=== PATIENT | male | born 1970 | race Caucasian/White ===

== ENCOUNTER → 2019-10-20 13:57 | Outpatient (BNVA) | payer MEDICARE, SELFPAY | PROVIDERS: PCP Nurse Practitioner Family; Visit Provider Anesthesiology | DX: G89.29 Other chronic pain (principal); M54.9 Dorsalgia, unspecified; M54.10 Radiculopathy, site unspecified; M25.571 Pain in right ankle and joints of right foot; M25.552 Pain in left hip; M25.562 Pain in left knee | CPT/HCPCS: 99214 ==

== ENCOUNTER → 2019-12-17 13:40 | Outpatient (BNVA) | payer MEDICARE, SELFPAY | PROVIDERS: PCP Nurse Practitioner Family; Visit Provider Anesthesiology | DX: G89.29 Other chronic pain (principal); M54.10 Radiculopathy, site unspecified; M79.651 Pain in right thigh; M79.652 Pain in left thigh; M25.571 Pain in right ankle and joints of right foot; M25.562 Pain in left knee; M25.552 Pain in left hip; Z79.891 Long term (current) use of opiate analgesic | CPT/HCPCS: 99214 ==

== ENCOUNTER → 2020-04-12 13:44 | Outpatient (BNVA) | payer MEDICARE, SELFPAY | PROVIDERS: PCP Nurse Practitioner Family; Visit Provider Anesthesiology | DX: G89.29 Other chronic pain (principal); M25.571 Pain in right ankle and joints of right foot; M25.552 Pain in left hip; M25.562 Pain in left knee; M54.10 Radiculopathy, site unspecified; Z79.891 Long term (current) use of opiate analgesic | CPT/HCPCS: 99214 ==

== ENCOUNTER → 2020-06-21 13:07 | Outpatient (BNVA) | payer MEDICARE, SELFPAY | PROVIDERS: PCP Nurse Practitioner Family; Visit Provider Nurse Practitioner | DX: G89.29 Other chronic pain (principal); M54.42 Lumbago with sciatica, left side; M25.571 Pain in right ankle and joints of right foot; M25.562 Pain in left knee; M25.552 Pain in left hip; M54.10 Radiculopathy, site unspecified; M79.641 Pain in right hand; Z79.891 Long term (current) use of opiate analgesic | CPT/HCPCS: 99213; 99214 ==

== ENCOUNTER 2020-07-11 08:05 | Outpatient (CLI) | payer MEDICARE, SELFPAY ==
--- NOTE | 2020-07-11 08:13 | CT_ITS ---
WS: [id number] CT HEAD TECHNIQUE: Noncontrast CT of the head obtained from the skullbase to the vertex. CLINICAL INFORMATION: FREQUENT HEADACHES COMPARISON: None. DLP: 1058.[address] scans at [facility] use at least one of these dose optimization techniques: automat ed exposure control; mA and/or kV adjustment per patient size (includes targeted exams where dose is matched to clinical indication); or iterative reconstruction. FINDINGS: No evidence of intracranial hemorrhage or mass effect. Ventricular system and basal cisterns are martin nt. Normal blake-white differentiation. No significant parenchymal volume loss. No encephalomalacia. N o extra-axial fluid collections. No evidence of mass or mass effect. Paranasal sinuses and mastoid air cells are well aerated. .Normal visualized soft tissues. CT/CT head wo con* [id number] IMPRESSION: 1. No evidence of intracranial hemorrhage or mass effect. 2. Normal blake-white differentiation. No encephalomalacia. 3. No acute intracranial findings.
== END 2020-07-11 08:06 | disposition home or self-care (01) ==
LOC: RADWPI 08:08
PROVIDERS: PCP Nurse Practitioner Family; Visit Provider Nurse Practitioner Family
DX: R51 Headache (principal)
CPT/HCPCS: 70450

== ENCOUNTER → 2020-08-25 13:45 | Outpatient (BNVA) | payer MEDICARE, SELFPAY | PROVIDERS: PCP Nurse Practitioner Family; Visit Provider Anesthesiology | DX: G89.29 Other chronic pain (principal); M54.42 Lumbago with sciatica, left side; M25.571 Pain in right ankle and joints of right foot; M25.562 Pain in left knee; M25.552 Pain in left hip; Z79.891 Long term (current) use of opiate analgesic | CPT/HCPCS: 99214 ==

== ENCOUNTER → 2020-10-31 10:04 | Outpatient (BNVA) | payer MEDICARE, SELFPAY | PROVIDERS: PCP Nurse Practitioner Family; Visit Provider Anesthesiology | DX: G89.29 Other chronic pain (principal); M25.571 Pain in right ankle and joints of right foot; M25.562 Pain in left knee; M25.552 Pain in left hip; M54.10 Radiculopathy, site unspecified; Z79.891 Long term (current) use of opiate analgesic | CPT/HCPCS: 99214 ==

== ENCOUNTER → 2020-12-20 13:10 | Outpatient (BNVA) | payer MEDICARE, SELFPAY | PROVIDERS: PCP Nurse Practitioner Family; Visit Provider Anesthesiology | DX: G89.29 Other chronic pain (principal); M25.571 Pain in right ankle and joints of right foot; M25.562 Pain in left knee; M25.552 Pain in left hip; M54.10 Radiculopathy, site unspecified; Z79.891 Long term (current) use of opiate analgesic | CPT/HCPCS: 99214 ==

== ENCOUNTER → 2021-01-10 13:13 | Outpatient (BNVA) | payer MEDICARE, SELFPAY | PROVIDERS: PCP Nurse Practitioner Family; Referring Provider Nurse Practitioner Family; Visit Provider Specialist | DX: M25.559 Pain in unspecified hip (principal); M16.12 Unilateral primary osteoarthritis, left hip | CPT/HCPCS: 73502 ==

== ENCOUNTER → 2021-02-16 13:20 | Outpatient (BNVA) | payer MEDICARE, SELFPAY | PROVIDERS: PCP Nurse Practitioner Family; Visit Provider Podiatrist Foot & Ankle Surgery | DX: M19.071 Primary osteoarthritis, right ankle and foot (principal); M25.571 Pain in right ankle and joints of right foot | CPT/HCPCS: 73610 ==

== ENCOUNTER → 2021-02-23 12:31 | Outpatient (BNVA) | payer MEDICARE, SELFPAY | PROVIDERS: PCP Nurse Practitioner Family; Visit Provider Anesthesiology | DX: G89.29 Other chronic pain (principal); M54.42 Lumbago with sciatica, left side; M25.552 Pain in left hip; M25.562 Pain in left knee; M16.9 Osteoarthritis of hip, unspecified; M19.271 Secondary osteoarthritis, right ankle and foot; Z79.891 Long term (current) use of opiate analgesic | CPT/HCPCS: 99214 ==

== ENCOUNTER 2021-03-24 21:33 | Emergency (ER) | payer MEDICARE, SELFPAY ==
[2021-03-24 21:40] VITALS: BP 158/85; PULSE 101; RESP 22; TEMP 35.8; O2SAT 94; BMI 40.2
--- NOTE | 2021-03-24 21:53 | W.ED.SKABFB ---
HPI - Skin/Abscess/Foreign Bdy General: Chief complaint: Skin/Abscess/Foreign Body Stated complaint: SPIDER BITE ON RLE 2 DAYS AGO, PT HAS RARE CANCER Time Seen by Provider: 03/24/21 21:46 History of Present Illness: HPI narrative: 50-year-old male patient comes in today with a lesion to his right lower leg. Patient feels that it may be a spider bite. Patient reports for the last 3 days he has felt kind of tired and having increase in his pain level. Patient has a history of T-cell lymphoma, obesity, chronic pain syndrome. Patient reports that he felt something crawling on his skin he brushed it off 3 days ago. Patient said since then he had the symptoms of malaise and body aches. Patient denies any other symptoms except for some flank pain. Review of Systems General: Reports: 10 or more systems reviewed and unremarkable except in HPI and below Const: Reports: fatigue PFSH ED PFSH: Medical History Ankle pain, right Back pain with left-sided radiculopathy Chronic left hip pain Chronic pain of left knee Encounter for long-term opiate analgesic use Opioid contract exists Surgical History H/O arthroscopic knee surgery History of foot surgery Family History Grandfather Cancer Social History Smoking and tobacco status: former smoker Second hand smoke exposure: No Alcohol intake: current Alcohol intake frequency: few times a month History of recent travel: No Physical Exam Const: COMMON NORMALS: no acute distress and patient oriented x3 GENERAL APPEARANCE: cooperative HENMT: COMMON NORMALS: normocephalic and Normal external nose present HEAD & SCALP: normal to inspection and normocephalic NOSE: Normal external nose present MOUTH: Normal oral and palatal mucosa present Eye: GENERAL EYE: appearance normal, both eyes and all related structures Neck/C-Spine: COMMON NORMALS: full ROM Lymph: LYMPHATIC: no lymphadenopathy noted Chest: COMMONS NORMALS: normal inspection of the chest Resp: COMMON NORMALS: normal respiratory effort EFFORT & INSPECTION: Yes able to speak in complete sentences Cardio: COMMON NORMALS: regular rate and regular rhythm RATE: regular rate RHYTHM: regular rhythm GI: COMMON NORMALS: non-tender : COMMON NORMALS: Yes no CVA tenderness BLADDER/KIDNEY EXAM: Yes no CVA tenderness Back/Pelvis: COMMON NORMALS: no CVA tenderness and thoracic and lumbar spine normal to inspection Extremity: NARRATIVE EXTREMITY EXAM: Small pustule noted to the left lower leg with less than 1 cm area of redness. Neuro: COMMON NORMALS: patient oriented x3 and moves all extremities Psych: COMMON NORMALS: mental status grossly normal and cooperative Skin: COMMON NORMALS: no rashes or lesions noted GENERAL SKIN EXAM: no rashes or lesions noted Course ED course: 2229, urine showed some red blood cells, when questioned specifically what kidney pain the patient was having he just states that it was in his bilateral flanks not 1 more than other. No sign of white blood cells. Due to this type of pain in his response I do not feel it is necessary due to it being bilateral flank discomfort. Vital Signs: Vital signs: Vital Signs Temperature 96.4 F L 03/24/21 21:40 Pulse Rate 101 H 03/24/21 21:40 Respiratory Rate 22 H 03/24/21 21:40 Blood Pressure 158/85 03/24/21 21:40 Pulse Oximetry 94 03/24/21 21:40 MDM - Skin/Abscess/Foreign Bdy MDM Narrative: Medical decision making narrative: Patient comes in today for complaints of generalized body pain. Patient believes he was bit by a spider 3 days ago and has had a reaction to the spider bite. Patient points to a small lesion to his right lower leg with minimal area of redness surrounding it. 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 Differential diagnosis includes infected insect bite, reaction to insect bite, malingering. Laboratory values noted some mild decrease in the white blood cell count at 3.5, sodium was 131, remainder of labs were unremarkable. Urinalysis was clear except for some trace of red blood cells. I believe the patient probably was bit by a spider but it has been the past 3 days and I do not think patient is having a systemic reaction from the venom at this time, I think we should go ahead and cover for infection and continue monitoring. Another thought may be a viral syndrome that is coinciding with the patient's insect bite. Patient agreed to plan. Lab Data: Labs: Lab Results 03/24/21 03/24/21 03/24/21 Range/Units 22:09 23:24 23:24 WBC 3.5 L (4.0-10.0) 10^3/ uL RBC 4.57 (4.1-5.3) 10^6/u L Hgb 13.5 (11.7-16.6) g/dL Hct 39.1 L (42.0-52.0) % MCV 85.6 (80-94) fL MCH 29.5 (28.0-34.0) pg MCHC 34.5 (30.0-36.0) g/dL RDW 13.3 (12.1-15.1) % Plt Count 110 L (130-400) 10^3/c mm MPV 10.3 (7.4-10.4) fL Neut % (Auto) 62.3 % Lymph % (Auto) 29.6 % [place] % (Auto) 6.6 % Eos % (Auto) 0.0 % Baso % (Auto) 0.9 % Neut # (Auto) 2.19 (1.8-7.7) 10^3/u L Lymph # (Auto) 1.0 (0.8-4.8) 10^3/u L [place] # (Auto) 0.2 (0.2-0.9) 10^3/u L Eos # (Auto) 0.0 (0.0-0.8) 10^3/u L Baso # (Auto) 0.0 (0.0-0.1) 10^3/u L Nucleated RBC % (a uto) 0 % Nucleated RBCs # 0.0 /100WBC Sodium 131 L (136-145) mmol/L Potassium 3.8 (3.5-5.1) mmol/L Chloride 98 (98-107) mmol/L Carbon Dioxide 23 (22-29) mmol/L Anion Gap 13.8 (5-19) BUN 14 (6-20) mg/dL Creatinine 0.8 (0.7-1.2) mg/dL GFR Calculation 103.2 (90-130) mL/min Glucose 116 H (65-115) mg/dL Calculated Osmolal ity 273 L (285-295) mOsm/k g Calcium 8.2 L (8.5-10.5) mg/dL Total Bilirubin 0.8 (0.15-1.2) mg/dL AST 50 H (0-40) U/L ALT 40 (0-41) U/L Alkaline Phosphata se 121 (40-130) IU/L Total Protein 6.5 L (6.6-8.7) g/dL Albumin 3.7 (3.5-5.2) g/dL Globulin 2.8 (1.3-4.6) g/dL Urine Color Yellow (Yellow) Urine Appearance Clear (CLEAR) Urine pH 6 (5-7) Ur Specific Gravit y 1.010 (1.005-1.030) Urine Protein Neg (Negative) Urine Glucose (UA) Norm (Normal) Urine Ketones Negative (Negative) Urine Blood 2+ H (Negative) Urine Nitrate Negative (Negative) Urine Bilirubin 1+ H (Negative) Urine Urobilinogen 8 H (Negative) mg/dL Ur Leukocyte Bridgett ase Negative (Negative) Urine RBC 0-4 H (0-2) /hpf Urine WBC None (0-5) /hpf Ur Squamous Epith Cells None (0-5) /hpf Amorphous Sediment Not Reportable Urine Bacteria Trace (NONE) /hpf Discharge Plan Discharge Patient Disposition: Home Clinical Impression: Infected insect bite of leg Qualifiers: Encounter type: initial encounter Laterality: right Qualified Code(s): S80.861A - Insect bite (nonvenomous), right lower leg, initial encounter Condition: Stable Prescriptions: New Bactrim DS 800-160 mg tablet 1 tab PO DAILY 7 Days RF: 0 No Action celecoxib [Celebrex] 200 mg capsule 200 mg PO BID 30 Days Qty: 60 RF: 1 cyclobenzaprine 10 mg tablet 10 mg PO TID PRN (Reason: muscle spasm) 30 Days Qty: 90 RF: 1 duloxetine 20 mg capsule,delayed release(DR/EC) 20 mg PO BID 30 Days Qty: 60 RF: 1 hydrocodone-acetaminophen 10-325 mg tablet 1 tab PO TID PRN (Reason: pain) 30 Days Qty: 90 RF: 0 hydrocodone-acetaminophen 10-325 mg tablet 1 tab PO TID PRN (Reason: pain) 30 Days Qty: 90 RF: 0 tramadol 50 mg tablet 100 mg PO QID PRN (Reason: pain) 30 Days Qty: 240 RF: 1 zonisamide [Zonegran] 100 mg capsule 300 mg PO .BEDTIME 30 Days Qty: 90 RF: 1 Discharge Orders: Discharge ED (Routine); Ordered 03/25/21 Ordered By: Ranjeet White Referrals: Deanna Rodriguez FNP [Primary Care Provider] - Discharge Diet: Usual diet Discharge Activity: Increase activity as tolerated Patient Instructions: Wound Infection (ED), Opioid Safety Activity Restrictions/Additional Instructions: Home and rest. Take antibiotic as directed. Drink plenty of water with medication. Elevate leg and monitor for increased redness and swelling. Follow-up with primary care in 2 to 3 days for recheck. Return to the ER for high fever, worsening symptoms, or new concerns. 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
[2021-03-24 22:23] LABS: Add Urine Microscopic? YES; Bilirubin Urine 1+ (Negative); Blood Urine 2+ (Negative); Glucose Urine UA Norm (Normal); Ketones Urine Negative (Negative); Leukocyte Esterase Urine Negative (Negative); Nitrate Urine Negative (Negative); Protein Urine Neg (Negative); Urine Appearance Clear (CLEAR); Urine Color Yellow (Yellow); Urobilinogen Urine 8 mg/dL (Negative); pH Urine 6 (5-7)
[2021-03-24 22:30] LABS: Add Urine Culture? No; Bacteria Urine TRACE /hpf; RBC Urine 0-4 /hpf (0-2)
[2021-03-24 23:35] LABS: Basophils % 0.9 %; Hematocrit 39.1 % (42.0-52.0); Hemoglobin 13.5 g/dL (11.7-16.6); Lymphocytes % 29.6 %; Mean Corpuscular HGB Conc 34.5 g/dL (30.0-36.0); Mean Corpuscular Hemoglobin 29.5 pg (28.0-34.0); Mean Corpuscular Volume 85.6 fL (80-94); Mean Platelet Volume 10.3 fL (7.4-10.4); Monocytes # 0.2 10^3/uL (0.2-0.9); Monocytes % 6.6 %; Neutrophils # 2.19 10^3/uL (1.8-7.7); Neutrophils % 62.3 %; Nucleated Red Blood Cells % 0 %; Platelet Count 110 10^3/cmm (130-400); Red Blood Count 4.57 10^6/uL (4.1-5.3); Red Cell Distribution Width 13.3 % (12.1-15.1); White Blood Count 3.5 10^3/uL (4.0-10.0)
[2021-03-24 23:49] LABS: Alanine Aminotransferase 40 U/L (0-41); Albumin Level 3.7 g/dL (3.5-5.2); Alkaline Phosphatase 121 IU/L (40-130); Anion Gap 13.8 (5-19); Aspartate Amino Transferase 50 U/L (0-40); Blood Urea Nitrogen 14 mg/dL (6-20); Calcium 8.2 mg/dL (8.5-10.5); Carbon Dioxide 23 mmol/L (22-29); Chloride 98 mmol/L (98-107); Globulin 2.8 g/dL (1.3-4.6); Glomerular Filtration Rate 103.2 mL/min (90-130); Glucose 116 mg/dL (65-115); Osmolality Calculated 273 mOsm/kg (285-295); Potassium 3.8 mmol/L (3.5-5.1); Sodium 131 mmol/L (136-145); Total Bilirubin 0.8 mg/dL (0.15-1.2); Total Protein 6.5 g/dL (6.6-8.7)
[2021-03-24 23:58] LABS: Slide Review Slide Review Perform
[2021-03-25] MEDS: sulfamethoxazole-trimeth DS 160-800 mg Tablet 1 TAB PO (00:18)
[2021-03-25 00:20] VITALS: BP 140/85; PULSE 75; RESP 18; TEMP 36.8; O2SAT 95
== END 2021-03-25 00:22 | disposition home or self-care (01) ==
PROVIDERS: Emergency Provider Nurse Practitioner Family; PCP Nurse Practitioner Family
DX: S80.861A Insect bite (nonvenomous), right lower leg, initial encounter (principal); W57.XXXA Bitten or stung by nonvenomous insect and other nonvenomous arthropods, initial encounter; Z87.891 Personal history of nicotine dependence; Z85.9 Personal history of malignant neoplasm, unspecified
CPT/HCPCS: 80053; 81001; 85025; 99283

== ENCOUNTER → 2021-04-25 12:46 | Outpatient (BNVA) | payer MEDICARE, SELFPAY | PROVIDERS: PCP Nurse Practitioner Family; Visit Provider Nurse Practitioner | DX: G89.29 Other chronic pain (principal); M25.571 Pain in right ankle and joints of right foot; M16.9 Osteoarthritis of hip, unspecified; M54.10 Radiculopathy, site unspecified; E66.01 Morbid (severe) obesity due to excess calories; Z79.891 Long term (current) use of opiate analgesic | CPT/HCPCS: 99214 ==

== ENCOUNTER 2021-05-02 12:26 | Outpatient (CLI) | payer MEDICARE, SELFPAY ==
--- NOTE | 2021-05-02 15:00 | XRR_ITS ---
PROCEDURE INFORMATION: Exam: XR Abdomen Exam date and time: 05/02/2021 3:00 PM Age: 51 years old Clinical indication: Condition or disease; Kidney or ureter condition; Calculus (stone) in kidney; Additional info: Kidney stone TECHNIQUE: Imaging protocol: XR of the abdomen. Views: Frontal supine view of the abdomen. 1 View. COMPARISON: CT Chest/Abdomen/Pelvis w IV* 09/17/2018 9:56 AM FINDINGS: Gastrointestinal tract: There is moderate colonic fecal stasis in the ascending and transverse colon. Nonspecific dilated bowel loops are present in the left lower quadrant. Organs: The kidneys are obscured by bowel gas and colonic contents. There is no clear evidence of radiodense urinary tract stones Bones/joints: Severe osteoarthritis is seen in the lumbar spine, and left hip. XR/XR KUB [id number] IMPRESSION: 1. No acute GI abnormality. 2. Negative for radiodense urinary tract stones. 3. Severe osteoarthritis lumbar spine left hip
== END 2021-05-02 12:27 | disposition home or self-care (01) ==
LOC: RAD 12:31
PROVIDERS: PCP Nurse Practitioner Family; Visit Provider Urology
DX: N20.0 Calculus of kidney (principal); R31.0 Gross hematuria; M16.12 Unilateral primary osteoarthritis, left hip
CPT/HCPCS: 74018; 81003; 87086; 88112

== ENCOUNTER 2021-05-23 11:34 | Outpatient (CLI) | payer MEDICARE, SELFPAY ==
[2021-05-23] MEDS: iohexol 300 mg/mL 100 mL Btl IV (11:49)
--- NOTE | 2021-05-23 13:00 | CT_ITS ---
WS: [id number] CT ABDOMEN PELVIS TECHNIQUE: Noncontrast CT of the abdomen and contrast-enhanced CT of the abdomen and pelvis with geronimo nal and sagittal reformatted images. CLINICAL INFORMATION: GROSS HEMATURIA COMPARISON: CT 12 DLP: 5413.[address] scans at [facility] use at least one of these dose optimization techniques: automat ed exposure control; mA and/or kV adjustment per patient size (includes targeted exams where dose is matched to clinical indication); or iterative reconstruction. FINDINGS: No hydronephrosis in either kidney. Adrenal glands are normal. Both ureters are decompressed. No obst ructing renal or ureteral calculi. Pelvic phleboliths. Normal renal parenchymal enhancement. Normal e xcretion on the delayed imaging. Both ureters are normally opacified. No filling defects or obstructi on. Bladder is normal in appearance. Lung bases are well aerated. Mild diffuse fatty infiltration the keith er. Normal portal vein and splenic vein. Normal gallbladder. Mild fatty atrophy of the pancreas. Sple curtis granulomas. Small esophageal hiatal hernia. Normal caliber abdominal aorta. Tiny fat-containing umbilical hernia. Normal sigmoid colon. No eviden ce of high-grade small or large bowel destruction. Normal appendix in the right lower quadrant. No ab dominal or pelvic lymphadenopathy. No inguinal lymphadenopathy. Moderate spondylitic changes lumbar spine with disc space narrowing worse at L3-4 with degenerative s clerosis in the endplates. Vacuum disc phenomenon L2-L3 L3-L4 L4-L5. Moderate central canal stenosis L3-4 with moderate facet arthropathy. Chronic spondylolysis L5-S1 without significant anterolisthesis . Markedly advanced degenerative arthritis left hip with complete loss of joint space and [id number] articulation. Associated subchondral cystic change and hypertrophic changes. This is unchanged since 2018. CT/CT abdomen pelvis wo/w [id number] IMPRESSION: 1. No hydronephrosis in either kidney. Normal renal parenchymal enhancement wi th normal excretion. No suspicious filling defects. 2. Normal bladder. 3. No abdominal pelvic or inguinal lymphadenopathy. 4. Mild diffuse fatty infiltration of the liver. 5. Small esophageal hiatal hernia. 6. Moderate spondylitic changes lumbar spine advanced for patient this age wit h asymmetric endplate sclerosis L3-4 with moderate central canal narrowing. 7. Chronic spondylolysis L5-S1. No significant anterolisthesis. Findings can b e further evaluated with MRI lumbar spine. 8. Markedly advanced degenerative arthritis left hip unchanged since 2018
== END 2021-05-23 11:35 | disposition home or self-care (01) ==
LOC: CT 11:35
PROVIDERS: PCP Nurse Practitioner Family; Visit Provider Urology
DX: R31.0 Gross hematuria (principal); K76.0 Fatty (change of) liver, not elsewhere classified; K44.9 Diaphragmatic hernia without obstruction or gangrene; M47.817 Spondylosis without myelopathy or radiculopathy, lumbosacral region
CPT/HCPCS: 74178; 81003

== ENCOUNTER → 2021-05-24 13:43 | Outpatient (BNVA) | payer MEDICARE, SELFPAY | PROVIDERS: PCP Nurse Practitioner Family; Visit Provider Nurse Practitioner | DX: G89.29 Other chronic pain (principal); M25.571 Pain in right ankle and joints of right foot; M54.10 Radiculopathy, site unspecified; M16.9 Osteoarthritis of hip, unspecified; M25.562 Pain in left knee; M25.552 Pain in left hip; E66.01 Morbid (severe) obesity due to excess calories; Z79.891 Long term (current) use of opiate analgesic | CPT/HCPCS: 99213 ==

== ENCOUNTER → 2021-07-31 14:13 | Outpatient (BNVA) | payer MEDICARE, SELFPAY | PROVIDERS: PCP Nurse Practitioner Family; Visit Provider Anesthesiology | DX: G89.29 Other chronic pain (principal); M54.42 Lumbago with sciatica, left side; M25.571 Pain in right ankle and joints of right foot; M25.562 Pain in left knee; M25.552 Pain in left hip; Z79.891 Long term (current) use of opiate analgesic; Z87.891 Personal history of nicotine dependence | CPT/HCPCS: 99213 ==

== ENCOUNTER 2022-03-15 08:05 | Outpatient (CLI) | payer MEDICARE, SELFPAY ==
--- NOTE | 2022-03-15 | XR_ITS ---
WS: [id number] RIBS RIGHT WITH CHEST TECHNIQUE: 3 views of the right ribs with PA chest CLINICAL INFORMATION: RIB PAIN ON RIGHT SIDE COMPARISON: None. FINDINGS: Both lungs are well aerated. No acute pulmonary infiltrates. No focal pneumonia or pleural fluid. Cos tochondral calcifications RIGHT ribs anteriorly. No definite visualized acute rib fractures. XR/XR ribs RT mn 3V w CXR1V [id number] IMPRESSION: Costochondral calcifications RIGHT ribs anteriorly degrades detailed assessment of the RIGHT ribs. No visualized acute rib fractures.
--- NOTE | 2022-03-15 | XR_ITS ---
WS: [id number] ABDOMEN SERIES Supine and upright views of the abdomen CLINICAL INFORMATION: ABDOMINAL PAIN RIGHT UPPER QUADRANT COMPARISON: None. FINDINGS: Mild lumbar scoliosis. Moderate spondylitic changes lumbar spine. 5 nonrib-bearing lumbar vertebral bodies. Advanced osteoarthritis LEFT hip with destructive changes i nvolving the femoral head and acetabulum. Pelvic phleboliths. Mild constipation RIGHT colon and cecum . XR/XR abdomen min 2V [id number] IMPRESSION: Mild constipation RIGHT colon and cecum. Otherwise unremarkable bowel gas patte rn.
== END 2022-03-15 08:06 | disposition home or self-care (01) ==
LOC: RADOUTREAD 03-19 08:08
PROVIDERS: PCP Nurse Practitioner Family; Visit Provider Nurse Practitioner Family
DX: R07.81 Pleurodynia (principal); R10.11 Right upper quadrant pain
CPT/HCPCS: 71101; 74019

== ENCOUNTER → 2022-08-27 14:56 | Outpatient (BNVA) | payer MEDICARE, SELFPAY | PROVIDERS: PCP Nurse Practitioner Family; Referring Provider Nurse Practitioner Family; Visit Provider Physician Assistant | DX: M25.512 Pain in left shoulder (principal); M50.30 Other cervical disc degeneration, unspecified cervical region; M75.42 Impingement syndrome of left shoulder; M47.812 Spondylosis without myelopathy or radiculopathy, cervical region; M19.012 Primary osteoarthritis, left shoulder | CPT/HCPCS: 72050; 73030; 99204 ==

== ENCOUNTER → 2022-09-10 14:08 | Outpatient (BNVA) | payer MEDICARE, SELFPAY | PROVIDERS: PCP Nurse Practitioner Family; Visit Provider Podiatrist Foot & Ankle Surgery | DX: M19.271 Secondary osteoarthritis, right ankle and foot (principal); M21.071 Valgus deformity, not elsewhere classified, right ankle; L60.3 Nail dystrophy; L30.9 Dermatitis, unspecified; M21.611 Bunion of right foot; M21.612 Bunion of left foot | CPT/HCPCS: 99214 ==

== ENCOUNTER 2022-09-12 06:00 | Outpatient (RCR) | payer MEDICARE, SELFPAY | END 2022-10-12 23:59 | disposition home or self-care (01) | LOC: SPT 06:00 | PROVIDERS: PCP Nurse Practitioner Family; Visit Provider Nurse Practitioner Family | DX: M25.512 Pain in left shoulder (principal) | CPT/HCPCS: 97110; 97162 ==

== ENCOUNTER 2022-09-14 17:39 | Emergency (ER) | payer MEDICARE, SELFPAY ==
[2022-09-14 18:12] VITALS: BP 199/86; PULSE 90; RESP 18; TEMP 38.7; O2SAT 92
--- NOTE | 2022-09-14 18:23 | XRR_ITS ---
PROCEDURE INFORMATION: Exam: XR Chest Exam date and time: 09/14/2022 7:23 PM Age: 52 years old Clinical indication: Cough and dyspnea; Additional info: Cough, SOB TECHNIQUE: Imaging protocol: Radiologic exam of the chest. Views: 1 view. COMPARISON: CR XR chest 2V* [id number] 03/28/2022 5:39 PM FINDINGS: Lungs: The lungs are underinflated and clear. Pleural spaces: Unremarkable. No pleural effusion. No pneumothorax. Heart/Mediastinum: Unremarkable. No cardiomegaly. Bones/joints: Unremarkable. XR/XR chest 1V portable [id number] IMPRESSION: No acute cardiopulmonary abnormality.
--- NOTE | 2022-09-14 19:08 | W.ED.FEVER ---
HPI - Fever General: Chief Complaint: Fever Stated Complaint: SOB, Fever, cancer pt Time Seen by Provider: 09/14/22 19:08 History of Present Illness: Mr. Byrnes is a 52-year-old gentleman with significant past medical history of non-Hodgkin's lymphoma presenting to the emergency department due to fever and generalized aches. He reports a few day history of perhaps mild shortness of breath cough however symptoms worsened this morning when he woke with sore throat, fevers up to 102.8, cough which is nonproductive, and aches. Intensity is moderate-severe. Worse with exertion. No other specific changes in health, exacerbating, or alleviating factors identified. Onset (ago): day(s) Measured temperature: 102.8 F Exacerbating factors: swallowing and exertion Relieving factors: acetaminophen Associated symptoms: Reports myalgias, nasal congestion and sore throat Review of Systems General: Reports: 10 or more systems reviewed and unremarkable except in HPI and below ENMT: Reports: nasal congestion PFSH ED PFSH: Medical History Ankle pain, right Back pain with left-sided radiculopathy Chronic left hip pain Chronic pain of left knee Encounter for long-term opiate analgesic use Gross hematuria Opioid contract exists Surgical History H/O arthroscopic knee surgery History of foot surgery Family History Grandfather Cancer Social History Smoking and tobacco status: former smoker Second hand smoke exposure: No Alcohol intake: current Alcohol intake frequency: few times a month History of recent travel: No Physical Exam Const: COMMON NORMALS: alert GENERAL APPEARANCE: cooperative and well developed HENMT: COMMON NORMALS: normocephalic and atraumatic HEAD & SCALP: normocephalic and atraumatic OTHER: Mild posterior vaginal erythema, no lesions or exudate, no distortion of anatomy or edema. Eye: COMMON NORMALS: conjunctivae normal CONJUNCTIVA: Yes conjunctivae normal SCLERA: sclerae normal Neck/C-Spine: COMMON NORMALS: supple GENERAL: Yes trachea midline Resp: COMMON NORMALS: clear to auscultation bilaterally EFFORT & INSPECTION: Yes able to speak in complete sentences AUSCULTATION: clear to auscultation bilaterally Cardio: COMMON NORMALS: regular rate and regular rhythm RATE: regular rate RHYTHM: regular rhythm GI: COMMON NORMALS: Soft to palpation PALPATION: Yes Soft to palpation and No Tenderness to palpation present (GI) Extremity: GENERAL: Yes normal exam except as noted and No edema Neuro: COMMON NORMALS: moves all extremities SENSORIUM/ORIENTATION: Yes alert and No Orientation impaired Psych: COMMON NORMALS: mental status grossly normal and Normal thought process present THOUGHT PROCESS: Normal thought process present Course Vital Signs: Vital signs: Vital Signs Temperature 101.7 F H 09/14/22 18:12 Pulse Rate 83 09/14/22 23:07 Respiratory Rate 18 09/14/22 23:07 Blood Pressure 173/84 09/14/22 23:07 Pulse Oximetry 94 09/14/22 23:07 MDM - Fever Medical Decision Making 52-year-old gentleman with history of non-Hodgkin's lymphoma presenting with generalized and respiratory illness. Somewhat ill on appearance however nontoxic. Unremarkable hematologic panel, metabolic panel with evidence of dehydration. No evidence of urinary tract infection. COVID-positive. Chest x-ray with no lobar consolidation or pneumothorax. Patient improved with IV fluids, RT treatment, Toradol. Most likely etiology of patient's symptoms is COVID. The patient cannot tolerate p.o. intake and is not requiring supplemental oxygen. The results of ED evaluation were discussed with the patient including prescriptions and/or symptomatic cares (if applicable) including appropriate and responsible use, followup plan, and return precautions. The patient verbalized understanding and felt safe for discharge. Medical Records I reviewed the patient's medical records. Lab Data I reviewed the patient's lab results. 09/14/22 18:48 09/14/22 18:48 Radiology Impressions Chest X-Ray 09/14/22 18:23 IMPRESSION: No acute cardiopulmonary abnormality. Laboratory Results WBC 6.1 10^3/uL (4.0-10.0) 09/14/22 18:48 RBC 4.56 10^6/uL (4.1-5.3) 09/14/22 18:48 Hgb 13.4 g/dL (11.7-16.6) 09/14/22 18:48 Hct 40.7 % (42.0-52.0) L 09/14/22 18:48 MCV 89.3 fl (80-94) 09/14/22 18:48 MCH 29.4 pg (28.0-34.0) 09/14/22 18:48 MCHC 32.9 g/dL (30.0-36.0) 09/14/22 18:48 RDW 13.3 % (12.1-15.1) 09/14/22 18:48 Plt Count 181 10^3/cmm (130-400) 09/14/22 18:48 MPV 10.3 fL (7.4-10.4) 09/14/22 18:48 Neut % (Auto) 73.6 % 09/14/22 18:48 Lymph % (Auto) 9.5 % 09/14/22 18:48 [place] % (Auto) 13.8 % 09/14/22 18:48 Eos % (Auto) 1.6 % 09/14/22 18:48 Baso % (Auto) 0.5 % 09/14/22 18:48 Neut # (Auto) 4.48 10^3/uL (1.8-7.7) 09/14/22 18:48 Lymph # (Auto) 0.6 10^3/uL (0.8-4.8) L 09/14/22 18:48 [place] # (Auto) 0.8 10^3/uL (0.2-0.9) 09/14/22 18:48 Eos # (Auto) 0.1 10^3/uL (0.0-0.8) 09/14/22 18:48 Baso # (Auto) 0.0 10^3/uL (0.0-0.1) 09/14/22 18:48 Nucleated RBC % (auto) 0 % 09/14/22 18:48 Nucleated RBCs # 0.0 /100WBC 09/14/22 18:48 Sodium 130 mmol/L (136-145) L 09/14/22 18:48 Potassium 4.0 mmol/L (3.5-5.1) 09/14/22 18:48 Chloride 94 mmol/L (98-107) L 09/14/22 18:48 Carbon Dioxide 27 mmol/L (22-29) 09/14/22 18:48 Anion Gap 13.0 (5-19) 09/14/22 18:48 BUN 14 mg/dL (6-20) 09/14/22 18:48 Creatinine 0.8 mg/dL (0.7-1.2) 09/14/22 18:48 GFR Calculation 102.3 mL/min (90-130) 09/14/22 18:48 Glucose 96 mg/dL (65-115) 09/14/22 18:48 Calculated Osmolality 270 mOsm/kg (285-295) L 09/14/22 18:48 Calcium 9.4 mg/dL (8.5-10.5) 09/14/22 18:48 Total Bilirubin 0.3 mg/dL (0.15-1.2) 09/14/22 18:48 AST 19 U/L (0-40) 09/14/22 18:48 ALT 23 U/L (0-41) 09/14/22 18:48 Alkaline Phosphatase 70 U/L (40-130) 09/14/22 18:48 C-Reactive Protein 24.6 mg/L (0.0-4.9) H 09/14/22 18:48 Total Protein 7.4 g/dL (6.6-8.7) 09/14/22 18:48 Albumin 4.1 g/dL (3.5-5.2) 09/14/22 18:48 Globulin 3.3 g/dL (1.3-4.6) 09/14/22 18:48 Procalcitonin 0.10 ng/mL (0-0.5) 09/14/22 18:48 Urine Color Yellow (Yellow) 09/14/22 07:23 Urine Appearance Clear (CLEAR) 09/14/22 07:23 Urine pH 8 (5-7) H 09/14/22 07:23 Ur Specific [place] 1.010 (1.005-1.030) 09/14/22 07:23 Urine Protein Neg (Negative) 09/14/22 07:23 Urine Glucose (UA) Norm (Normal) 09/14/22 07:23 Urine Ketones Negative (Negative) 09/14/22 07:23 Urine Blood Neg (Negative) 09/14/22 07:23 Urine Nitrate Negative (Negative) 09/14/22 07:23 Urine Bilirubin Neg (Negative) 09/14/22 07:23 Urine Urobilinogen Neg mg/dL (Negative) 09/14/22 07:23 Ur Leukocyte Esterase Negative (Negative) 09/14/22 07:23 Influenza Type A Ag negative (Negative) 09/14/22 21:23 Influenza Type B Ag negative (Negative) 09/14/22 21:23 SARS-CoV-2 Ag (Rapid) positive (Negative) 09/14/22 21:23 Group A Strep Rapid Negative (Negative) 09/14/22 07:23 Discharge Plan Discharge Patient Disposition: Home Clinical Impression: COVID-19 Condition: Stable Prescriptions: No Action hydrocodone-acetaminophen 10-325 mg tablet 1 tab PO QID PRN (Reason: pain) 30 Days Qty: 120 0RF Rx Instructions: Fill on or after 08/04/21 hydrocodone-acetaminophen 10-325 mg tablet 1 tab PO QID PRN (Reason: pain) 30 Days Qty: 120 0RF Rx Instructions: Fill on or after 09/03/21 tramadol 50 mg tablet 100 mg PO QID PRN (Reason: pain) 30 Days Qty: 240 1RF Rx Instructions: fill on or after 08/04/21 and 09/03/21 cyclobenzaprine 10 mg tablet 10 mg PO TID PRN (Reason: muscle spasm) 30 Days Qty: 90 1RF celecoxib [Celebrex] 200 mg capsule 200 mg PO BID 30 Days Qty: 60 1RF duloxetine [Cymbalta] 30 mg capsule,delayed release(DR/EC) 30 mg PO BID 30 Days Qty: 60 1RF Rx Instructions: Fill 05/03/21 zonisamide [Zonegran] 100 mg capsule 300 mg PO .BEDTIME 30 Days Qty: 90 1RF triamcinolone acetonide 0.1 % cream 1 applic topical TID Qty: 30 2RF Discharge Orders: Discharge ED (Routine); Ordered 09/14/22 Ordered By: Ibrahima Vizcarra Referrals: Deanna Rodriguez FNP [Primary Care Provider] - Discharge Diet: Usual diet Discharge Activity: Increase activity as tolerated Patient Instructions: Dehydration (ED), COVID-19 (Coronavirus Disease 2019) (ED), Pain Management Activity Restrictions/Additional Instructions: Thank you for visiting the emergency department. You were seen and evaluated for fevers and generalized illness. The most likely cause of your symptoms is COVID-19. The treatment for this is primarily supportive. You may use [id number] medications such as acetaminophen and ibuprofen for pain however please do not exceed the daily recommended dosage as listed on the packaging and please keep in mind that many namebrand medications contain the same active ingredients. Please return to the emergency department for worsening symptoms, inability to tolerate oral intake, oxygen saturations at rest less than 90%, or anything else that you are concerned about a feel needs emergency department evaluation. 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
[2022-09-14 19:24] LABS: Basophils % 0.5 %; Eosinophils # 0.1 10^3/uL (0.0-0.8); Eosinophils % 1.6 %; Hematocrit 40.7 % (42.0-52.0); Hemoglobin 13.4 g/dL (11.7-16.6); Lymphocytes # 0.6 10^3/uL (0.8-4.8); Lymphocytes % 9.5 %; Mean Corpuscular HGB Conc 32.9 g/dL (30.0-36.0); Mean Corpuscular Hemoglobin 29.4 pg (28.0-34.0); Mean Corpuscular Volume 89.3 fl (80-94); Mean Platelet Volume 10.3 fL (7.4-10.4); Monocytes # 0.8 10^3/uL (0.2-0.9); Monocytes % 13.8 %; Neutrophils # 4.48 10^3/uL (1.8-7.7); Neutrophils % 73.6 %; Nucleated Red Blood Cells % 0 %; Platelet Count 181 10^3/cmm (130-400); Red Blood Count 4.56 10^6/uL (4.1-5.3); Red Cell Distribution Width 13.3 % (12.1-15.1); White Blood Count 6.1 10^3/uL (4.0-10.0)
[2022-09-14] MEDS: ketorolac 30 mg/mL INJ 15 MG IVP (19:36)
[2022-09-14 19:40] LABS: Add Urine Microscopic? NO; Charge for UA Resulting for Rev
[2022-09-14] MEDS: sodium chloride 0.9% 1,000 ML 999 ML IV (19:40)
[2022-09-14 19:45] LABS: Alanine Aminotransferase 23 U/L (0-41); Albumin Level 4.1 g/dL (3.5-5.2); Alkaline Phosphatase 70 U/L (40-130); Aspartate Amino Transferase 19 U/L (0-40); Blood Urea Nitrogen 14 mg/dL (6-20); C Reactive Protein 24.6 mg/L (0.0-4.9); Calcium 9.4 mg/dL (8.5-10.5); Carbon Dioxide 27 mmol/L (22-29); Chloride 94 mmol/L (98-107); Globulin 3.3 g/dL (1.3-4.6); Glomerular Filtration Rate 102.3 mL/min (90-130); Glucose 96 mg/dL (65-115); Osmolality Calculated 270 mOsm/kg (285-295); Sodium 130 mmol/L (136-145); Total Bilirubin 0.3 mg/dL (0.15-1.2); Total Protein 7.4 g/dL (6.6-8.7)
[2022-09-14 19:56] LABS: Urine Appearance Clear (CLEAR); Urine Color Yellow (Yellow)
[2022-09-14 19:57] LABS: Bilirubin Urine Neg (Negative); Blood Urine Neg (Negative); Glucose Urine UA Norm (Normal); Ketones Urine Negative (Negative); Nitrate Urine Negative (Negative); Protein Urine Neg (Negative); pH Urine 8 (5-7)
[2022-09-14 19:58] LABS: Leukocyte Esterase Urine Negative (Negative); Urobilinogen Urine Neg (Negative)
[2022-09-14 20:20] LABS: Rapid Strep A Test Negative (Negative)
[2022-09-14] MEDS: ipratropium-albuterol 3 mL Neb INHALATION (21:13)
[2022-09-14 22:21] LABS: SARS Covid-2 Antigen positive (Negative)
[2022-09-14 22:22] LABS: Influenza A by IFA negative (Negative); Influenza B by IFA negative (Negative)
[2022-09-14 23:07] VITALS: BP 173/84; PULSE 83; RESP 18; O2SAT 94
== END 2022-09-14 23:12 | disposition home or self-care (01) ==
PROVIDERS: Emergency Provider Emergency Medicine; PCP Nurse Practitioner Family
DX: U09.9 Post COVID-19 condition, unspecified (principal)
CPT/HCPCS: 36415; 71045; 80053; 81003; 84145; 85025; 86140; 87040; 87081; 87426; 87804; 87880; 96361; 96374; 99284; J1885; J7030

== ENCOUNTER 2022-10-13 06:00 | Outpatient (RCR) | payer MEDICARE, SELFPAY | END 2022-11-12 23:59 | disposition home or self-care (01) | LOC: SPT 06:00 | PROVIDERS: PCP Nurse Practitioner Family; Visit Provider Nurse Practitioner Family | DX: M25.512 Pain in left shoulder (principal) | CPT/HCPCS: 97110; G0283 ==

== ENCOUNTER → 2022-10-24 14:14 | Outpatient (BNVA) | payer MEDICARE, SELFPAY | PROVIDERS: PCP Nurse Practitioner Family; Visit Provider Physician Assistant | DX: M50.30 Other cervical disc degeneration, unspecified cervical region (principal); M47.22 Other spondylosis with radiculopathy, cervical region | CPT/HCPCS: 99212 ==

== ENCOUNTER 2022-11-13 06:00 | Outpatient (RCR) | payer MEDICARE, SELFPAY | END 2022-12-10 23:59 | disposition home or self-care (01) | LOC: SPT 06:00 | PROVIDERS: PCP Nurse Practitioner Family; Visit Provider Nurse Practitioner Family | DX: M25.512 Pain in left shoulder (principal) | CPT/HCPCS: 97110; G0283 ==

== ENCOUNTER 2022-12-11 06:00 | Outpatient (RCR) | payer MEDICARE, SELFPAY | END 2023-01-10 23:59 | disposition home or self-care (01) | LOC: SPT 06:00 | PROVIDERS: PCP Nurse Practitioner Family; Visit Provider Nurse Practitioner Family | DX: M25.512 Pain in left shoulder (principal) | CPT/HCPCS: 97110 ==

== ENCOUNTER → 2023-06-25 12:44 | Outpatient (BNVA) | payer MEDICARE, SELFPAY | PROVIDERS: PCP Nurse Practitioner Family; Referring Provider Nurse Practitioner Family; Visit Provider Internal Medicine Cardiovascular Disease | DX: R06.09 Other forms of dyspnea (principal); R06.02 Shortness of breath; R07.9 Chest pain, unspecified; N18.9 Chronic kidney disease, unspecified; R94.31 Abnormal electrocardiogram [ECG] [EKG]; R00.2 Palpitations; G47.33 Obstructive sleep apnea (adult) (pediatric); C84.A0 Cutaneous T-cell lymphoma, unspecified, unspecified site; Z87.891 Personal history of nicotine dependence | CPT/HCPCS: 36415; 80048; 83880; 84443; 93005; 93246; 99204 ==

== ENCOUNTER 2023-07-04 14:51 | Outpatient (CLI) | payer MEDICARE, SELFPAY ==
--- NOTE | 2023-07-04 15:00 | USCV_ITS ---
Stephen Byrnes Age: 53 Gender: M : 1970 Exam Date: 07/04/2023 15:29 Ordering Phys: Mahendra Mendez MD ([email or web address]) Technologist: JAG [place] [facility] [place]: SHORTNESS OF BREATH BP: 132 / 88 HR: 62 Rhythm: Sinus Technical Quality: Adequate MEASUREMENTS (Male / Female) Normal Values 2D ECHO LVOT Diameter 2.0 cm LV Ejection Fraction MOD 2C 50.8 % LV Ejection Fraction 2C AL 48.3 % LA Diameter 3.2 cm LA Width 4.2 cm LA Height 5.3 cm RA Width 3.6 cm RA Height 4.6 cm Aorta at Sinotubular Diameter 2.8 cm IVC Diameter 2.0 cm M-MODE Aortic Annulus Diameter 2.4 cm LA Ao Ratio MM 1.1 MV E Point Septal Separation 1.2 cm DOPPLER AV Peak Velocity 163.3 cm/s LVOT Peak Velocity 98.0 cm/s AV Area Cont Eq vti 1.8 cm squared AV Area Cont Eq pk 1.9 cm squared MV Peak Velocity 78.0 cm/s MV Area PHT 3.1 cm squared Mitral E to A Ratio 1.2 MV E' Velocity 48.0 cm/s Mitral E to MV E' Ratio 7.7 Mitral E to LV E' Lateral Ratio 6.5 Mitral E to LV E' Septal Ratio 9.4 TR Peak Velocity 209.2 cm/s TR Peak Gradient 17.5 mmHg TR Mean Velocity 158.9 cm/s TR Mean Gradient 11.0 mmHg TR Velocity Time Integral 58.3 cm TV Peak E Velocity 39.0 cm/s Right Atrial Pressure 3.0 mmHg Pulmonary Artery Systolic Pressu 20.5 mmHg FINDINGS Left Ventricle Normal left ventricular size and systolic function, EF 59 %. Moderate hypokinesia of the basal inferior wall segment. Segmental wall motion analysis is difficult because of poor ultrasonic window Right Ventricle The right ventricle is normal in size and function. Right Atrium The right atrium is normal in size. Left Atrium The left atrium is normal in size. Mitral Valve No gross abnormalities noted Aortic Valve No gross abnormalities noted Tricuspid Valve No gross abnormalities noted Pulmonic Valve Pulmonic valve not well visualized. Pericardium Normal pericardium without effusion. Aorta Normal ascending aorta dimension. IVC Normal inferior vena cava. CONCLUSIONS Normal left ventricular size and systolic function, EF 59 %. Moderate hypokinesia of the basal inferior wall segment. Segmental wall motion analysis is difficult because of poor ultrasonic window. Possibly normal cardiac chamber sizes. There is no pericardial effusion. Technically difficult study because of the poor ultrasonic window. No similar previous studies are available for comparison Dr Mahendra Mendez MD [facility] (Electronically Signed) Final Date: 04 July 2023 18:16 S
== END 2023-07-04 14:52 | disposition home or self-care (01) ==
LOC: RAD 14:53
PROVIDERS: PCP Nurse Practitioner Family; Visit Provider Internal Medicine Cardiovascular Disease
DX: R06.09 Other forms of dyspnea (principal); R06.02 Shortness of breath
CPT/HCPCS: 93306

== ENCOUNTER → 2023-07-09 11:16 | Outpatient (BNVA) | payer MEDICARE, SELFPAY | PROVIDERS: PCP Nurse Practitioner Family; Visit Provider Nurse Practitioner Family | DX: R06.02 Shortness of breath (principal) | CPT/HCPCS: 99214 ==

== ENCOUNTER → 2023-07-14 07:58 | Outpatient (BNVA) | payer MEDICARE, SELFPAY | PROVIDERS: PCP Nurse Practitioner Family; Visit Provider Podiatrist Foot & Ankle Surgery | DX: M21.071 Valgus deformity, not elsewhere classified, right ankle; M19.271 Secondary osteoarthritis, right ankle and foot; M21.611 Bunion of right foot; M21.612 Bunion of left foot | CPT/HCPCS: 99213 ==

== ENCOUNTER 2023-08-19 09:44 | Outpatient (CLI) | payer MEDICARE, SELFPAY ==
--- NOTE | 2023-08-19 | ECG_ITS ---
[facility] Test Date: 2023-08-19 Pat Name: Stephen Byrnes Department: Room: Gender: Male [employer] Supervisor: Kassie Ramirez : 1970 Requested By: Jelena Mckeon Order Number: [id number] Tessa MD: Mahendra Mendez M.D. Interpretive Statements NAME OF STUDY: LEXISCAN SESTAMIBI STRESS TEST INDICATION: Dyspnea, Palpitations with exertion, Chest pressure , PROCEDURE: At the baseline, the EKG revealed sinus bradycardia with nonspecific T wave changes in the inferior leads.. The baseline heart was 59 bpm with a blood pressue of 137/78 mm of Hg Lexiscan was infused over a period of 20 seconds. A total of 0.4 milligrams of Lexiscan was infused. The stress phase was continued for a total of 5 minutes. Heart rate at the end of the stress phase was 76 bpm with a blood pressure 134/105 mm of Hg. The EKG at the peak infusion revealed no significant changes. Sestamibi was injected 20 seconds after the Lexiscan infusion. Heart rate at the end of the recovery phase was 70 bpm with a blood pressure of 127/79 mm of Hg. CONCLUSION: 1. No significant EKG changes with the LexiScan infusion 2. No LexiScan induced chest pain or cardiac arrhythmia 3. Normal blood pressure and heart rate response 4. Sestamibi/sestamibi perfusion scan pending; see separate report. Electronically Signed On 08-23-2023 13:49:26 LAPEL BASTER by Mahendra Mendez M.D. [id number]
[2023-08-19 10:09] VITALS: BMI 46.1
--- NOTE | 2023-08-19 10:12 | NMCV_ITS ---
NM radha perf SPECT r/s* [id number] Stephen Byrnes Age: 53 Gender: M : 1970 Exam Date: 08/19/2023 10:40 Ordering Phys: Jelena Mckeon Technologist: ETIENNE Rodriguez Exam Location: [facility] Indications: SMOKER, ABNORMAL EKG, PALPITATIONS, SHORTNESS OF BREATH STRESS TEST Please see separate stress test report in [facility] for full findings IMAGE PROTOCOL Rest/Stress 1 Lexiscan Day Radiopharmaceutical Dose (mCi) Administration Site Administered by Rest: Tc-99m 11.0 IV ETIENNE Rodriguez Sestamibi Stress:Tc-99m 33.0 IV ETIENNE Bueno Sestamibi Rest: 19-Aug-2023 60 Discovery 630 Stress: 19-Aug-2023 30 Discovery 630 0.4mg Lexiscan. Supine position only as patient was unable to lay prone. SPECT RESULTS Technical Quality: Good Raw Data Analysis: Normal Image Corrections: No attenuation or motion correction applied Summed Stress Score: 17 Summed Rest Score: 4 Summed Difference Score: 13 PERFUSION FINDINGS Moderate to large area of area of moderate to severely decreased aseptic in the inferior, inferoseptal and apical septal regions with some reversibility. Small to moderate area of slightly decreased tracer uptake was noted in thee basal and mid inferolateral, basal inferoseptal, apical lateral and LV apex . Significant reversibility was noted in these regions. FUNCTIONAL RESULTS (calculated via Gated SPECT) Stress Image LV EF (%): 50 Stress EDV (mL):200 TID: 1.17 Stress ESV (mL):100 FUNCTIONAL FINDINGS: Segmental wall motion analysis revealed mild diffuse hypokinesia of the apex IMPRESSIONS 1. Myocardial perfusion imaging revealing a moderate area of moderate to severely decreased tracer uptake in the inferior, inferoseptal, inferolateral and apical regions with a significant reversibility ,suggesting myocardial scarring with ischemia, predominantly in the distribution of the right coronary artery with some involvement of the left anterior descending and circumflex arteries. 2. Normal LV ejection fraction of 50%. 3. LV wall motion abnormalities as mentioned above. 4. Moderately dilated LV cavity with an end-systolic volume of 100 ml. 5. Slightly elevated transient ischemic dilatation ratio of 1.17 also may suggest endocardial ischemia. No similar previous studies are available for comparison Dr Mahendra Mendez MD [facility] (Electronically Signed) Final Date: 19 August 2023 19:49 S
[2023-08-19] MEDS: regadenoson 0.4 Mg/5 ml Syringe IVP (11:35)
[2023-08-19 11:46] VITALS: BP 127/79; PULSE 70
== END 2023-08-19 09:45 | disposition home or self-care (01) ==
LOC: CDL 09:45
PROVIDERS: PCP Nurse Practitioner Family; Visit Provider Nurse Practitioner Family
DX: R00.2 Palpitations (principal); R94.31 Abnormal electrocardiogram [ECG] [EKG]; R06.02 Shortness of breath
CPT/HCPCS: 36415; 78452; 93017; 96374; A9500; J2785

== ENCOUNTER 2023-09-03 06:02 | Outpatient (CLI) | payer MEDICARE, SELFPAY ==
--- NOTE | 2023-09-03 06:00 | XACV_ITS ---
Exam Room: 2 Ht: 185 cm Wt: 159 kg BSA: 2.94 m2 Gender: Male : 1970 Any Known Allergies: Other Exam Priority: Routine Procedure(s): Procedure Description: Diagnostic procedure Procedure Description: PCI procedure Procedure Description: Left Heart Catheterization Procedure Description: Left ventriculography Procedure Description: Drug Eluting Coronary Stent Procedure Description: PTCA Procedure Description: Coronary Angiography Diagnostic Cath Status: Elective PCI Status: Elective Conclusions 1. Angioplasty of distal RCA 100% stenosis. The lesion was crossed with the with the hydrophilic instructor pilot 50 coronary wire with the over the wire balloon sport (2.0 x 12). After successful crossing the lesion the instructor pilot 50 wire was exchanged with a Runthrough wire. The lesion was predilated with 2.0 x 12 compliant balloon at 8-10 VOLODYMYR. Subsequent a drug-eluting stent resolute 2.25x26 was deployed at 12 VOLODYMYR. Post stent dilatation with 2.5 x 15 NC balloon at 14 VOLODYMYR. Post stent excellent angiographic result with KAMARI-3 flow. No complication related to the procedure.. Interventional RX Recommendation: PCI w/o planned CABG Diagnostic RX Recommendation: PCI w/o planned CABG Anticoagulation: Heparin Ventriculography Ejection Fraction: 55.0 % Pressures Phase:Rest AO : 116 / 74 ( 85 ) @ 7:51:00 AM 93 / 70 ( 81 ) @ 7:52:00 AM 102 / 69 ( 84 ) @ 7:57:00 AM 134 / 86 ( 103 ) @ 8:05:00 AM 129 / 73 ( 99 ) @ 8:05:00 AM 113 / 61 ( 86 ) @ 8:17:00 AM 97 / 66 ( 80 ) @ 8:18:00 AM 88 / 72 ( 81 ) @ 8:31:00 AM 106 / 72 ( 87 ) @ 8:38:00 AM 102 / 69 ( 83 ) @ 8:42:00 AM 111 / 75 ( 91 ) @ 8:45:00 AM 108 / 74 ( 86 ) @ 8:53:00 AM LV : 133 / 11 / 31 @ 8:03:00 AM 133 / 10 / 26 @ 8:03:00 AM 142 / 21 / 33 @ 8:04:00 AM 132 / 15 / 34 @ 8:05:00 AM Valves Phase:DefaultPhase AV : 0.0 @ 9:04:26 AM AV Mean Gradient: 0.0 @ 9:04:26 AM Clinical Evaluation EBL: 5mL-10mL Procedural Details Procedure Consent Obtained. Admit Source: Out Patient. Pre-Procedure Time Out. Identified patient by full name and date of as verbalized by the patient/guarantor. Does the consent match the physician's order: Yes. Accurate & Complete Informed Consent: Yes. Inpatient/Outpatient History & Physical on Chart: Yes. If H&P is completed, is and addenduem needed: Yes; If yes, is the addendum complete: Yes. Visualize and Verify Site with Patient/Guarantor: N/A. Relevant Radiology Images available: Yes. The risks, benefits, and alternatives of sedation and/or procedure were discussed by physician. The patient agrees to continue. Procedure started. [facility] Clinical Fraility Score: 3: Managing Well. Campus President Indications: Worsening Angina. Chest Pain Symptom Assessment: Atypical Angina. Correct patient, site and procedure confirmed by cath team. Current diagnosis: Chest Pain, Abnormal stress test. PERRLA. Strong, equal hand computer typesetter keyliner bilaterally. Lungs clear x 5 lobes. IV Site on Arrival: 20 gauge in the left anticubital. IV Fluids: 0.9% NaCl at KVO. 0 mL infused prior to catholic priest. Pre Procedural Pulses: bilateral radial was 3+. Pre Procedural Pulses: bilateral posterior tibial was 1+. Pre Procedural Pulses: bilateral dorsalis pedis was 1+. Oxygen started at 2liters/min via nasal canula. right radial was prepped with chloroprep then draped in the usual sterile fashion. right groin was prepped with chloroprep then draped in the usual sterile fashion. Baseline sample Acquired. HR: 57 BPM. Physician notified. Physician arrived. Physician scrubbed in. Immediate Pre-Procedure Time Out. Correct Patient: Yes; Correct Procedure: Yes; Correct Site: Yes; Correct Patient Position: Yes; Correct Supplies: Yes; Dried Flammable Prep: Yes; Blood Products Available: Yes;. Lidocaine 1% infiltrated to the right radial. Arterial access obtained. A 5 austrian Lupillo catheter in over wire. Multiple views taken of left coronary artery. Catheter removed over the exchange wire. A 5 austrian JR4 catheter in over wire. Multiple views taken of right coronary artery. Catheter removed over the exchange wire. A 5 austrian Angled Pig catheter in over wire. EDP Sample taken: LV 133/10,26; HR: 70 BPM; SpO2: 93%. EDP Sample taken: LV 142/21,33; HR: 71 BPM; SpO2: 91%. Pullback taken: LV 132/15,34; AO 134/86(103); Mean: 0mmHg, Peak to Peak: 0mmHg, SEP: 5sec/min; HR: 58 BPM; SpO2: 95%. Catheter removed over the exchange wire. LV gram performed in [place] @ 10 mL/second for a total of [address] Jasmine arrived to lab to review cine films. Dr. Jasmine scrubbed in to perform intervention. 6 austrian JR 4 guide catheter was inserted over the wire. Non Clinical Advisor 50 guidewire was advanced through the guide catheter to lesion in the distal RCA. Sprinter OTW 2.0X12mm balloon inserted over guidewire to crossing support. Guidewire advanced across lesion. Inflation number : 1 A OTW 2.0X12mm was prepped and advanced across the Dist RCA , then inflated to 8 VOLODYMYR for 0:06 seconds. Dopamineto titrated to 10mcg/kg/min. by Rubin De Los Santos RN. Inflation number: 2 The OTW 2.0X12mm was reinflated across the Dist RCA, to 8 VOLODYMYR for 0:07 seconds. Balloon advanced to distal RCA lesion. Results checked. Balloon and wire out. Runthrough guidewire was advanced through the guide catheter to lesion in the distal RCA. Dopamine gtt titrated to 5mcg/kg/min by Rubin De Los Santos RN. Guidewire advanced across lesion. Inflation number : 3 A AB MINI TREK 2.00X15 RX BALLOON was prepped and advanced across the Dist RCA , then inflated to 8 VOLODYMYR for 0:05 seconds. Inflation number: 4 The AB MINI TREK 2.00X15 RX BALLOON was reinflated across the Dist RCA, to 10 VOLODYMYR for 0:06 seconds. Balloon out. Balloon inserted to lesion in the distal RCA. Results checked. Stent inserted to lesion in the distal RCA. Inflation Number : 5 A MDT R KEI 2.25X26 DEBORAH -Lot [id number] EXP 01-25-2025 was prepped and advanced across the Dist RCA. The stent was deployed at 15 VOLODYMYR for 0:15 seconds. Stent balloon out over wire. Results checked. Balloon inserted to lesion in the distal RCA. Inflation number : 6 A MDT NC EUPHORA RX 2.69M75AA BALLOON was prepped and advanced across the Dist RCA , then inflated to 12 VOLODYMYR for 0:09 seconds. Inflation number: 7 The MDT NC EUPHORA RX [id number] BALLOON was reinflated across the Dist RCA, to 8 VOLODYMYR for 0:08 seconds. Balloon out. Wire out. Guide catheter out. A TR Band was successful obtaining hemostatsis at the Right Radial artery insertion site. Post Procedure: Pulses reassessed and unchanged. PERRLA. Strong, equal hand computer typesetter keyliner bilaterally. No VTE prophylaxis required. Post-op diagnosis: CAD. Medication's Wasted: Heparin = 1000 units. Medication's Wasted: Lidocaine 1% = 2 mL. Medication's Wasted: Nitro = 49.7 mg. Total IV fluids: 516 mL. Dopamine titrated to 4mcg/kg/min. Complications: None. Estimated blood loss: 5mL-10mL. Responsiveness - Normal response to verbal stimuli; alert and oriented, PERRLA. Airway - Unaffected, no intervention required; spontaneous ventilation. Circulation: W/N/L, pulses unchanged. Nausea/Vomiting: N/A. Procedure completed. Patient transferred by wheelchair to CPRU. Vital chart was stopped. Access Site Site: Right Radial artery Sheath Size: 6 Fr Hemostasis Method: TR Band Hemostasis Success: Successful Procedure Medications Start: 7:36 AM Stop: 7:36 AM Medication: Versed Amount: 1 mg Route: I.V. Start: 7:36 AM Stop: 7:36 AM Medication: Fentanyl Amount: 50 mcg Route: I.V. Start: 7:39 AM Stop: 7:39 AM Medication: Versed Amount: 1 mg Route: I.V. Start: 7:39 AM Stop: 7:39 AM Medication: Fentanyl Amount: 50 mcg Route: I.V. Start: 7:47 AM Stop: 7:47 AM Medication: Verapamil Amount: 5 mg Route: I.A. Start: 7:48 AM Stop: 7:48 AM Medication: Nitrogylcerin Amount: 200 mcg Route: I.A. Start: 7:48 AM Stop: 7:48 AM Medication: Versed Amount: 1 mg Route: I.V. Start: 7:48 AM Stop: 7:48 AM Medication: Fentanyl Amount: 50 mcg Route: I.V. Start: 7:51 AM Stop: 7:51 AM Medication: 0.9% Saline Amount: 250 ml Route: I.V. bolus Start: 7:56 AM Stop: 7:56 AM Medication: Heparin Amount: 5000 units Route: I.V. Start: 8:02 AM Stop: 8:02 AM Medication: Versed Amount: 1 mg Route: I.V. Start: 8:24 AM Stop: 8:24 AM Medication: Fentanyl Amount: 50 mcg Route: I.V. Start: 8:30 AM Stop: 8:30 AM Medication: 0.9% Saline Amount: 200 ml Route: I.V. bolus Start: 8:31 AM Stop: 8:31 AM Medication: Dopamine 400mg/250 mL Amount: 5 mcg/kg/min Route: I.V. drip Start: 8:31 AM Stop: 8:31 AM Medication: Heparin Amount: 70917 units Route: I.V. Start: 8:34 AM Stop: 8:34 AM Medication: Versed Amount: 1 mg Route: I.V. Start: 8:34 AM Stop: 8:34 AM Medication: Fentanyl Amount: 50 mcg Route: I.V. Start: 8:48 AM Stop: 8:48 AM Medication: Versed Amount: 1 mg Route: I.V. Start: 8:48 AM Stop: 8:48 AM Medication: Fentanyl Amount: 50 mcg Route: I.V. Start: 8:49 AM Stop: 8:49 AM Medication: Nitrogylcerin Amount: 200 mcg Route: I.C. Start: 8:59 AM Stop: 8:59 AM Medication: Plavix Amount: 600 mg Route: P.O. I, the attending physician, have reviewed and verified all procedure medications. Yes, all medications given per verbal order History/Risk Factors Hypertension: No Dyslipidemia: No Peripheral Arterial Disease (PAD): No Myocardial Infarction ([place]): No Obesity: Yes Renal Disease: No Tobacco Use: Former Prior Interventions PCI: No CABG: No Valve Surgery: No Report Signatures Finalized by Emili Jasmine MD on 09/03/2023 12:24 PM
[2023-09-03 06:28] LABS: Basophils % 0.4 %; Eosinophils # 0.2 10^3/uL (0.0-0.8); Eosinophils % 1.8 %; Hematocrit 42.9 % (37-53); Lymphocytes # 2.6 10^3/uL (0.8-4.8); Lymphocytes % 30.7 %; Mean Corpuscular HGB Conc 32.9 g/dL (30-55); Mean Corpuscular Hemoglobin 29.9 pg (27-33); Mean Corpuscular Volume 90.9 fl (82-101); Mean Platelet Volume 9.8 fL (7.4-10.4); Monocytes # 0.7 10^3/uL (0.2-0.9); Neutrophils # 4.88 10^3/uL (1.8-7.7); Neutrophils % 58.4 %; Nucleated Red Blood Cells % 0 %; Platelet Count 239 10^3/cmm (157-399); Red Blood Count 4.72 10^6/uL (3.85-5.65); Red Cell Distribution Width 13.4 % (12.1-15.1); White Blood Count 8.36 10^3/uL (3.29-11.43)
[2023-09-03 06:33] VITALS: BP 163/109; PULSE 64; RESP 14; TEMP 37.4; O2SAT 95; BMI 46.1
[2023-09-03] MEDS: diphenhydrAMINE 50 mg Capsule PO (06:46)
[2023-09-03 06:49] LABS: Anion Gap 14.4 (5-19); Blood Urea Nitrogen 16 mg/dL (6-20); Calcium 9.1 mg/dL (8.5-10.5); Carbon Dioxide 29 mmol/L (22-29); Chloride 101 mmol/L (98-107); Glucose 135 mg/dL (65-115); Osmolality Calculated 293 mOsm/kg (285-295); Potassium 4.4 mmol/L (3.5-5.1); Sodium 140 mmol/L (136-145)
--- NOTE | 2023-09-03 07:25 | P.HP_ITS ---
Providers/Chief Complaint Admitting Physician: ROXANE Mendez MD Primary Care Provider: JENNIFER Kim Chief Complaint: R93.1 History of Present Illness Stephen Byrnes is a 53 year old male with a history of high blood pressure, smoking abuse, presenting with shortness of breath and abnormal EKG. He had an echocardiogram and a Myocardial perfusion imaging which were found to be abnormal. He has a features of congestive heart failure. LV ejection fraction was around 59% by echocardiogram. He was found to have moderate hypokinesia of the basal inferior wall segment. The Myocardial perfusion imaging revealed moderate area of reversible defect, predominantly involving the right coronary artery with some involvement of the LAD and circumflex. Patient continues to have some shortness of breath and chest discomfort. For further evaluation of his coronary status, a cardiac catheterization was recommended. Review of Systems Narrative: CONSTITUTIONAL: No fever or chills. EYES: No blurring of vision or other visual disturbances lately. ENT: No hoarseness of voice, auditory disturbances or sore throat. CARDIOVASCULAR: As mentioned above. RESPIRATORY: Dyspnea on exertion. GASTROINTESTINAL: No hematemesis or melena. GENITOURINARY: No dysuria or hematuria. INTEGUMENTARY: No skin rashes or history of skin cancer. NEURO: No transient ischemic attacks or amaurosis. PSYCHIATRIC: No history of psychosis or major depression. HEMATOLOGIC: Patient has a history of non-Hodgkin's lymphoma ENDOCRINE: No history of polyuria or polydipsia. MUSCULOSKELETAL: No recent joint pain or swelling. ALLERGY/IMMUNOLOGY: As mentioned above. Medications/Allergies Home Medications Medication Instructions Recorded Confirmed Last Taken Type hydrocodone 10 mg-acetaminophen 1 tab PO QID PRN pain 30 days #120 07/31/21 09/03/23 09/02/23 21:00 Rx 325 mg tablet tabs meloxicam 7.5 mg tablet 7.5 mg PO DAILY 06/25/23 09/03/23 09/03/23 05:30 History furosemide 20 mg tablet (Lasix) 20 mg PO DAILY #90 tabs 07/04/23 09/03/23 09/03/23 05:30 Rx metoprolol tartrate 25 mg tablet 25 mg PO BID 30 days #60 tabs 07/04/23 09/03/23 09/03/23 05:30 Rx potassium chloride 8 mEq 8 meq PO DAILY #90 tabs 0909/03/23 09/03/23 05:30 Rx tablet,extended release Custom molded orthotics #1 ea 07/14/23 09/04/23 Unknown Rx aspirin 81 mg tablet,delayed 81 mg PO DAILY #30 tabs 09/04/23 Unknown Rx release atorvastatin 40 mg tablet 40 mg PO BEDTIME #30 tabs 09/04/23 Unknown Rx clopidogrel 75 mg tablet 75 mg PO DAILY #30 tabs 09/04/23 Unknown Rx lisinopril 5 mg tablet 5 mg PO DAILY #30 tabs 09/04/23 Unknown Rx Allergies Allergy/AdvReac Type Severity Reaction Status Date / Time minocycline AdvReac Unknown FLUSHED - Verified 07/14/23 08:04 DRAINED FEELING PFSH Acute PFSH: Medical History Ankle pain, right Back pain with left-sided radiculopathy Chronic left hip pain Chronic pain of left knee Encounter for long-term opiate analgesic use Gross hematuria Opioid contract exists Surgical History H/O arthroscopic knee surgery History of foot surgery Family History Grandfather Cancer Social History Smoking and tobacco/nicotine status: former use of tobacco/nicotine Second hand smoke exposure: No Alcohol intake: current Alcohol intake frequency: few times a month Substance/Drug Use: never Vitals/I&O/Wt Last Vital Signs Temp 99.3 F 09/03/23 06:33 Pulse 64 09/03/23 06:33 Resp 14 09/03/23 06:33 BP 163/109 09/03/23 06:33 O2 Del Method Room Air 09/03/23 06:33 Weight last 48 hrs Weight 350 lb Physical Exam Narrative: GENERAL: The patient is alert and oriented times three. Not in any acute distress. Morbidly obese HEENT: No significant pallor, icterus or lymphadenopathy.Oral cavity: There are no mucous membrane lesions. NECK: Trachea appears to be central. No masses noted. No JVD or thyromegaly appreciated. RESPIRATORY: Chest is symmetrical. No intercostals muscle retraction or any accessory muscle activation. There is no chest wall tenderness. Breath sounds are heard bilaterally. No rales or rhonchi heard. No evidence of any consolidation. BREASTS: Deferred. HEART: The heart sounds are normal. No S3 or S4. No significant murmurs. No pericardial rub ABDOMEN: No vessel pulsations or distention. No tenderness. No organomegaly appreciated. Bowel sounds are normally heard. : Deferred. RECTAL: Deferred. LYMPHATIC: No lymphadenopathy noted in the neck. EXTREMITIES: No edema or cyanosis. No clubbing. MUSCULOSKELETAL: No acute joint deformities or swelling SKIN: There are no significant rashes or ecchymosis NEUROPSYCHIATRIC: The patient is alert and oriented x3. Appears to be in a good mood. No tremors or rigidity noted. Data 09/03/23 06:20 09/03/23 06:20 Other Labs: Laboratory Last Values WBC 8.36 10^3/uL (3.29-11.43) 09/03/23 06:20 RBC 4.72 10^6/uL (3.85-5.65) 09/03/23 06:20 Hgb 14.10 g/dL (11.27-16.99) 09/03/23 06:20 Hct 42.9 % (37-53) 09/03/23 06:20 MCV 90.9 fl (82-101) 09/03/23 06:20 MCH 29.9 pg (27-33) 09/03/23 06:20 MCHC 32.9 g/dL (30-55) 09/03/23 06:20 RDW 13.4 % (12.1-15.1) 09/03/23 06:20 Plt Count 239 10^3/cmm (157-399) 09/03/23 06:20 MPV 9.8 fL (7.4-10.4) 09/03/23 06:20 Neut % (Auto) 58.4 % 09/03/23 06:20 Lymph % (Auto) 30.7 % 09/03/23 06:20 [place] % (Auto) 8.0 % 09/03/23 06:20 Eos % (Auto) 1.8 % 09/03/23 06:20 Baso % (Auto) 0.4 % 09/03/23 06:20 Neut # (Auto) 4.88 10^3/uL (1.8-7.7) 09/03/23 06:20 Lymph # (Auto) 2.6 10^3/uL (0.8-4.8) 09/03/23 06:20 [place] # (Auto) 0.7 10^3/uL (0.2-0.9) 09/03/23 06:20 Eos # (Auto) 0.2 10^3/uL (0.0-0.8) 09/03/23 06:20 Baso # (Auto) 0.0 10^3/uL (0.0-0.1) 09/03/23 06:20 Nucleated RBC % (auto) 0 % 09/03/23 06:20 Nucleated RBCs # 0.0 /100WBC 09/03/23 06:20 Sodium 140 mmol/L (136-145) 09/03/23 06:20 Potassium 4.4 mmol/L (3.5-5.1) 09/03/23 06:20 Chloride 101 mmol/L (98-107) 09/03/23 06:20 Carbon Dioxide 29 mmol/L (22-29) 09/03/23 06:20 Anion Gap 14.4 (5-19) 09/03/23 06:20 BUN 16 mg/dL (6-20) 09/03/23 06:20 Creatinine 0.9 mg/dL (0.7-1.2) 09/03/23 06:20 GFR Calculation 89.0 mL/min (90-130) L 09/03/23 06:20 Glucose 135 mg/dL (65-115) H 09/03/23 06:20 Calculated Osmolality 293 mOsm/kg (285-295) 09/03/23 06:20 Calcium 9.1 mg/dL (8.5-10.5) 09/03/23 06:20 A&P Assessment and plan (1) Abnormal cardiovascular stress test: The implications of the test results were discussed with the patient. In view of his ongoing symptoms, for further evaluation of his coronary status, he requires a cardiac catheterization. The risk of bleeding, hematoma, vascular injury, myocardial infarction, myocardial perforation, malignant cardiac arrhythmias ,CVA, renal failure and other concomitant complications were explained in detail. Patient understood this well and consented to proceed will go ahead and schedule a left heart catheterization with left and right coronary angiogram and possible PCI (2) Morbid obesity with body mass index of 40.0-49.9: (3) Benign essential hypertension with target blood pressure below 140/90: Blood pressure is currently elevated. Will try to optimize the antihypertensive medication. (4) Smoking addiction: Patient strongly advised to quit smoking (5) Diastolic heart failure: Currently compensated. Plan Based on the results of the above tests and the patient's clinical progress, further management decisions will be made. Attestations Medical Necessity Statement*: Patient may require 1 midnight stay for further management of his condition Coding Level of Care Code 47743 Diagnoses Abnormal cardiovascular stress test R94.39 Morbid obesity with body mass index of 40.0-49.9 E66.01 Benign essential hypertension with target blood pressure below 140/90 I10 Smoking addiction F17.200 Diastolic heart failure I50.30
--- NOTE | 2023-09-03 07:35 | W.PM.OPSUD ---
Surgery/Procedure H&P Update DATE OF PROCEDURE: September 03, 2023 DATE H&P PERFORMED: 09/03/23 H&P UPDATE INFORMATION: I have reviewed H&P completed within last 30 days, I have examined patient prior to procedure and No changes to prior documentation PREOP DIAGNOSIS: Atherosclerotic heart disease PRIMARY INDICATION FOR PROCEDURE: Congestive heart failure, abnormal Myocardial perfusion imaging, high blood pressure, smoking abuse PLANNED PROCEDURE: Operation Date: 09/03/23 07:00 Proposed Procedures p [facility] [id number],R93.1,I99.8,R06.2,R79.89(Left) - Mahendra Mendez MD PATIENT REASSESSED PRIOR TO SEDATION, WITH NO CHANGE NOTED: Yes PHYSICAL EXAM: alert, oriented x 3, clear to auscultation bilaterally and regular rate & rhythm AIRWAY EVAL/ANESTHESIA PLAN: normal airway, see other exam findings, ASA III, Monitored Anesthesia, Local Anesthesia, Risks, benefits & alternatives of sedation and/or procedure discussed and Patient agrees to continue as planned
[2023-09-03 15:29] VITALS: PULSE 58
[2023-09-03] MEDS: HYDROcodone-acetaminophen 10-325 mg Tablet 1 TAB PO ×2 (15:54→21:13)
[2023-09-03] MEDS: metoprolol tartrate 25 mg Tablet PO (18:27)
[2023-09-03 22:54] VITALS: PULSE 57
[2023-09-04 05:41] VITALS: BMI 46.1
[2023-09-04 07:31] VITALS: BP 144/91; PULSE 75; TEMP 23.8; O2SAT 94
[2023-09-04] MEDS: metoprolol tartrate 25 mg Tablet PO (08:41)
[2023-09-04] MEDS: FUROsemide 20 mg Tablet PO (08:41)
[2023-09-04] MEDS: meloxicam 7.5 mg tablet PO (08:41)
[2023-09-04] MEDS: clopidogrel 300 mg Tablet 600 MG PO (10:22)
[2023-09-04] MEDS: aspirin 325 mg Tablet PO (10:22)
[2023-09-04] MEDS: heparin 5,000 unit/mL INJ 1 mL 5000 UNIT IVP (10:22)
--- NOTE | 2023-09-04 10:37 | PM.DCS ---
Discharge Providers Date of Admission: 09/03/23 09:20 Date of Discharge: September 04, 2023 Attending Provider at Admission: Mahendra Mendez MD Attending Provider at Discharge: Mahendra Mendez MD Primary Care Provider: JENNIFER Kim Diagnoses at Discharge Discharge Diagnosis (1) Abnormal cardiovascular stress test: Status: Acute (2) Morbid obesity with body mass index of 40.0-49.9: Details from hospital stay: CAD Angina Status: Acute (3) Benign essential hypertension with target blood pressure below 140/90: Status: Acute (4) Smoking addiction: Status: Acute (5) Diastolic heart failure: Status: Acute Reason for Visit Reason for Visit: R93.1 Hospital Course Hospital Course 53 yrs old male underwent coronary angio and subsequent PCI of distal RCA with DEBORAH yesterday. Clinically he is doing fine, ambulating well Asymptomatic Noted BP is on higher side 140 + systolic . HR good control on metoprolol Followup with Dr. Mendez clinic in one week. Physical Exam Const: OTHER: normal HENMT: OTHER: normal Eye: OTHER: normal Chest: OTHER: normal Resp: COMMON NORMALS: clear to auscultation bilaterally AUSCULTATION: clear to auscultation bilaterally Cardio: COMMON NORMALS: regular rate, regular rhythm, S1 normal heart sound present and S2 normal heart sound present JUGULAR VENOUS DISTENTION: no JVD RATE: regular rate RHYTHM: regular rhythm HEART SOUNDS: S1 normal heart sound present and S2 normal heart sound present GI: COMMON NORMALS: Soft to palpation AUSCULTATION: Yes normoactive bowel sounds PALPATION: Yes Soft to palpation Extremity: OTHER: Trace pedal edema Neuro: OTHER: grossly intact Skin: OTHER: warm and dry Discharge Data Studies Completed and Pending Completed Studies During Hospitalization Category Date Time Status CORRECTIONAL AGENCY DIRECTOR request for service Routine Exams 09/03/23 06:00 Completed Laboratory Results WBC 8.36 10^3/uL (3.29-11.43) 09/03/23 06:20 RBC 4.72 10^6/uL (3.85-5.65) 09/03/23 06:20 Hgb 14.10 g/dL (11.27-16.99) 09/03/23 06:20 Hct 42.9 % (37-53) 09/03/23 06:20 MCV 90.9 fl (82-101) 09/03/23 06:20 MCH 29.9 pg (27-33) 09/03/23 06:20 MCHC 32.9 g/dL (30-55) 09/03/23 06:20 RDW 13.4 % (12.1-15.1) 09/03/23 06:20 Plt Count 239 10^3/cmm (157-399) 09/03/23 06:20 MPV 9.8 fL (7.4-10.4) 09/03/23 06:20 Neut % (Auto) 58.4 % 09/03/23 06:20 Lymph % (Auto) 30.7 % 09/03/23 06:20 Walker % (Auto) 8.0 % 09/03/23 06:20 Eos % (Auto) 1.8 % 09/03/23 06:20 Baso % (Auto) 0.4 % 09/03/23 06:20 Neut # (Auto) 4.88 10^3/uL (1.8-7.7) 09/03/23 06:20 Lymph # (Auto) 2.6 10^3/uL (0.8-4.8) 09/03/23 06:20 Walker # (Auto) 0.7 10^3/uL (0.2-0.9) 09/03/23 06:20 Eos # (Auto) 0.2 10^3/uL (0.0-0.8) 09/03/23 06:20 Baso # (Auto) 0.0 10^3/uL (0.0-0.1) 09/03/23 06:20 Nucleated RBC % (auto) 0 % 09/03/23 06:20 Nucleated RBCs # 0.0 /100WBC 09/03/23 06:20 Sodium 140 mmol/L (136-145) 09/03/23 06:20 Potassium 4.4 mmol/L (3.5-5.1) 09/03/23 06:20 Chloride 101 mmol/L (98-107) 09/03/23 06:20 Carbon Dioxide 29 mmol/L (22-29) 09/03/23 06:20 Anion Gap 14.4 (5-19) 09/03/23 06:20 BUN 16 mg/dL (6-20) 09/03/23 06:20 Creatinine 0.9 mg/dL (0.7-1.2) 09/03/23 06:20 GFR Calculation 89.0 mL/min (90-130) L 09/03/23 06:20 Glucose 135 mg/dL (65-115) H 09/03/23 06:20 Calculated Osmolality 293 mOsm/kg (285-295) 09/03/23 06:20 Calcium 9.1 mg/dL (8.5-10.5) 09/03/23 06:20 Vitals Last Vital Signs Temp 75 F L 09/04/23 07:31 Pulse 75 09/04/23 07:31 Resp 14 09/03/23 06:33 BP 144/91 09/04/23 07:31 Pulse Ox 94 09/04/23 07:31 O2 Del Method Room Air 09/04/23 07:31 Discharge Plan Discharge Patient Disposition: Home Condition: Stable Prescriptions: New aspirin 81 mg Tablet,Delayed Release (Dr/Ec) 81 mg PO DAILY Qty: 30 10RF atorvastatin 40 mg Tablet 40 mg PO BEDTIME Qty: 30 10RF clopidogrel 75 mg Tablet 75 mg PO DAILY Qty: 30 10RF lisinopril 5 mg Tablet 5 mg PO DAILY Qty: 30 3RF Continued hydrocodone-acetaminophen 10-325 mg tablet 1 tab PO QID PRN (Reason: pain) 30 Days Qty: 120 0RF Rx Instructions: Fill on or after 09/03/21 meloxicam 7.5 mg tablet 7.5 mg PO DAILY furosemide [Lasix] 20 mg tablet 20 mg PO DAILY Qty: 90 3RF potassium chloride 8 mEq tablet extended release 8 meq PO DAILY Qty: 90 3RF metoprolol tartrate 25 mg tablet 25 mg PO BID 30 Days Qty: 60 5RF No Action (DME) Custom molded orthotics See Rx Instructions .Route .MEDSUPPLY Qty: 1 0RF Rx Instructions: As directed Discharge Orders: Discharge Order (Routine); Ordered 09/04/23 Ordered By: Emili Jasmine Discharge Diet: Cardiac Discharge Activity: Resume usual activity Patient Instructions: Coronary Angioplasty (DC), Opioid Safety, Post Angiogram Home Care Instructions Discharge Attestations Time Spent in Discharge Care*: greater than 30 min Quality Metrics Clinical Quality Measures [ No reported AMI, CVA or VTE this stay] Coding Level of Care Code Acute Code for Chg Fwd Diagnoses Abnormal cardiovascular stress test R94.39 Morbid obesity with body mass index of 40.0-49.9 E66.01 Benign essential hypertension with target blood pressure below 140/90 I10 Smoking addiction F17.200 Diastolic heart failure I50.30 Time Spent (min) 45
[2023-09-04 11:16] VITALS: BP 155/101; PULSE 85; TEMP 36.9; O2SAT 95
--- NOTE | 2023-09-04 11:22 | PC.NURSE ---
Provider, Dr. Jasmine, ordered aspirin 325mg once, plavix 600mg once, and heparin 5000 IVP once. Orders entered and given per his request.
[2023-09-04 13:57] VITALS: BP 124/82; PULSE 78; RESP 24; O2SAT 97
== END 2023-09-04 04:29 | disposition home or self-care (01) ==
LOC: CCL 06:02 → ICU 14:26 → CSU 09-04 04:55
PROVIDERS: Internal Medicine Cardiovascular Disease; PCP Nurse Practitioner Family; Visit Provider Internal Medicine Cardiovascular Disease
DX: I25.10 Atherosclerotic heart disease of native coronary artery without angina pectoris (principal); R94.39 Abnormal result of other cardiovascular function study; E66.01 Morbid (severe) obesity due to excess calories; Z68.42 Body mass index [BMI] 45.0-49.9, adult; I11.0 Hypertensive heart disease with heart failure; I50.30 Unspecified diastolic (congestive) heart failure
CPT/HCPCS: 12345; 36415; 80048; 85025; 93458; 96361; 96365; 96367; 99152; 99153; C1725; C1769; C1874; C1887; C1894; C9600; CATH; J1265; J1644; J2250; J3010; J3490; J7050; Q0163; Q9967

== ENCOUNTER → 2023-09-12 12:05 | Outpatient (BNVA) | payer MEDICARE, SELFPAY | PROVIDERS: PCP Nurse Practitioner Family; Visit Provider Nurse Practitioner Family | DX: I25.10 Atherosclerotic heart disease of native coronary artery without angina pectoris (principal); Z09 Encounter for follow-up examination after completed treatment for conditions other than malignant neoplasm | CPT/HCPCS: 36415; 80048; 99214 ==

== ENCOUNTER → 2023-11-17 10:00 | Outpatient (BNVA) | payer MEDICARE, SELFPAY | PROVIDERS: PCP Nurse Practitioner Family; Visit Provider Nurse Practitioner Family | DX: I25.10 Atherosclerotic heart disease of native coronary artery without angina pectoris (principal); I11.0 Hypertensive heart disease with heart failure; I50.32 Chronic diastolic (congestive) heart failure; Z87.891 Personal history of nicotine dependence | CPT/HCPCS: 36415; 80048; 80061; 83880; 99214 ==

== ENCOUNTER 2023-11-19 12:57 | Outpatient (CLI) | payer MEDICARE, SELFPAY ==
--- NOTE | 2023-11-19 13:30 | USCV_ITS ---
Stephen Byrnes Age: 53 Gender: M : 1970 Exam Date: 11/19/2023 13:31 Ordering Phys: Jelena Mckeon Technologist: [place] [facility] [place]: [place] BP: 150 / 90 HR: 59 Rhythm: Sinus Technical Quality: Adequate MEASUREMENTS (Male / Female) Normal Values 2D ECHO LVOT Diameter 2.0 cm LV Ejection Fraction MOD 2C 68.1 % LV Ejection Fraction 2C AL 66.5 % LA Diameter 4.2 cm IVC Diameter 1.8 cm M-MODE Aortic Annulus Diameter 4.2 cm LA Ao Ratio MM 1.1 MV E Point Septal Separation 1.6 cm DOPPLER AV Peak Velocity 182.0 cm/s LVOT Peak Velocity 98.0 cm/s AV Area Cont Eq vti 1.6 cm squared AV Area Cont Eq pk 1.7 cm squared MV Area PHT 5.0 cm squared Mitral E to A Ratio 1.6 MV E' Velocity 65.0 cm/s Mitral E to LV E' Septal Ratio 5.9 TR Peak Velocity 121.0 cm/s TR Peak Gradient 5.9 mmHg PV Peak Velocity 66.0 cm/s RV Acceleration Time 0.2 s FINDINGS Left Ventricle Technically very limited quality echocardiogram because of poor ultrasonic windows. Grossly LV systolic function is normal. Regional wall motion abnormalities cannot be accurately assessed because of limited visualization. Right Ventricle Not well-visualized Right Atrium Not well-visualized Left Atrium Normal in size Mitral Valve Grossly normal Aortic Valve Not well visualized. Mild aortic regurgitation Tricuspid Valve Not well visualized Pulmonic Valve Not well visualized Pericardium Not well visualized Aorta Not well visualized IVC Not well visualized CONCLUSIONS Technically very limited quality echocardiogram because of poor ultrasonic windows. Grossly LV systolic function is normal. Valve structures are not well-visualized. Mild aortic regurgitation is seen. Comparison with prior echocardiogram is not possible because of limited quality studies Hector Lind MD (Electronically Signed) Final Date: 03 December 2023 12:19 S
== END 2023-11-19 12:58 | disposition home or self-care (01) ==
LOC: RAD 12:58
PROVIDERS: PCP Nurse Practitioner Family; Visit Provider Nurse Practitioner Family
DX: I25.10 Atherosclerotic heart disease of native coronary artery without angina pectoris (principal); I50.9 Heart failure, unspecified; R06.00 Dyspnea, unspecified
CPT/HCPCS: 93306

== ENCOUNTER → 2023-12-08 09:39 | Outpatient (BNVA) | payer MEDICARE, SELFPAY | PROVIDERS: PCP Nurse Practitioner Family; Visit Provider Nurse Practitioner Family | DX: I11.0 Hypertensive heart disease with heart failure (principal); I50.32 Chronic diastolic (congestive) heart failure; I25.10 Atherosclerotic heart disease of native coronary artery without angina pectoris; Z87.891 Personal history of nicotine dependence | CPT/HCPCS: 99214 ==

== ENCOUNTER → 2023-12-16 14:11 | Outpatient (BNVA) | payer MEDICARE, SELFPAY | PROVIDERS: PCP Nurse Practitioner Family; Visit Provider Podiatrist Foot & Ankle Surgery | DX: M21.071 Valgus deformity, not elsewhere classified, right ankle; M19.271 Secondary osteoarthritis, right ankle and foot; M21.611 Bunion of right foot; M21.612 Bunion of left foot; E11.42 Type 2 diabetes mellitus with diabetic polyneuropathy | CPT/HCPCS: 99213 ==

== ENCOUNTER 2023-12-19 11:44 | Outpatient (CLI) | payer MEDICARE, SELFPAY ==
--- NOTE | 2023-12-19 12:00 | USCV_ITS ---
Byrnes Stephen Age: 53 Gender: M : 1970 Exam Date: 12/19/2023 12:05 Ordering Phys: Jelena Mckeon Technologist: SAUMYA [place] [facility] [place]: HISTORY: PROCEDURES: FINDINGS: The veins were found to be easily compressible with spontaneous blood flow. Non pulsatile flow pattern. No significant reflux were noted CONCLUSIONS No evidence of DVT in the above-mentioned identifiable veins. No significant venous reflux Normal venous dimensions Dr Mahendra Mendez MD FAC (Electronically Signed) Final Date: 24 December 2023 09:33 S
== END 2023-12-19 11:45 | disposition home or self-care (01) ==
LOC: RAD 11:45
PROVIDERS: PCP Nurse Practitioner Family; Visit Provider Nurse Practitioner Family
DX: R06.02 Shortness of breath (principal)
CPT/HCPCS: 93970

== ENCOUNTER 2024-02-03 20:00 | Outpatient (CLI) | payer MEDICARE, SELFPAY | END 2024-02-03 20:01 | disposition home or self-care (01) | LOC: SLEEP 02-04 05:56 | PROVIDERS: PCP Nurse Practitioner Family; Visit Provider Nurse Practitioner Family | DX: G47.31 Primary central sleep apnea (principal) | CPT/HCPCS: 95811 ==

== ENCOUNTER → 2024-03-17 13:42 | Outpatient (BNVA) | payer MEDICARE, SELFPAY | PROVIDERS: PCP Nurse Practitioner Family; Visit Provider Podiatrist Foot & Ankle Surgery | DX: M21.071 Valgus deformity, not elsewhere classified, right ankle; M19.271 Secondary osteoarthritis, right ankle and foot; M21.611 Bunion of right foot; M21.612 Bunion of left foot; E11.42 Type 2 diabetes mellitus with diabetic polyneuropathy; I73.9 Peripheral vascular disease, unspecified | CPT/HCPCS: 99213 ==

== ENCOUNTER → 2024-05-27 11:00 | Outpatient (BNVA) | payer MEDICARE, SELFPAY | PROVIDERS: PCP Nurse Practitioner Family; Visit Provider Nurse Practitioner Family | DX: I25.10 Atherosclerotic heart disease of native coronary artery without angina pectoris (principal); I10 Essential (primary) hypertension; I50.32 Chronic diastolic (congestive) heart failure; I11.0 Hypertensive heart disease with heart failure; Z87.891 Personal history of nicotine dependence | CPT/HCPCS: 99214 ==

== ENCOUNTER → 2024-06-02 14:45 | Outpatient (BNVA) | payer MEDICARE, SELFPAY | PROVIDERS: PCP Nurse Practitioner Family; Visit Provider Podiatrist Foot & Ankle Surgery | DX: I73.9 Peripheral vascular disease, unspecified (principal); E11.42 Type 2 diabetes mellitus with diabetic polyneuropathy; L60.3 Nail dystrophy; M21.071 Valgus deformity, not elsewhere classified, right ankle; M25.571 Pain in right ankle and joints of right foot; G89.29 Other chronic pain; M21.611 Bunion of right foot; M21.612 Bunion of left foot; M19.271 Secondary osteoarthritis, right ankle and foot | CPT/HCPCS: 11721; 99213 ==

== ENCOUNTER 2024-08-14 20:56 | Emergency (ER) | payer MEDICARE, SELFPAY ==
--- NOTE | 2024-08-14 20:58 | ECG_ITS ---
[facility] Date: 2024-08-14 Pat Name: Stephen Byrnes Department: Room: Gender: Male Dental Ceramist: : 1970 Requested By: Magdaleno Lombardo Order Number: [id number] Tessa MD: Emili Jasmine M.D. Measurements Intervals [place]inger Rate: 81 P: 30 [place]: 142 QRS: 41 QRSD: 100 T: -12 QT: 319 QTc: 372 Interpretive Statements SINUS RHYTHM NONSPECIFIC T-WAVE ABNORMALITY Compared to ECG 06/25/2023 12:51:32 T-wave abnormality now present Electronically Signed On 08-15-2024 14:04:55 VALIDATION SOFTWARE FACILITATOR by Emili Jasmine M.D. [email or web address]
--- NOTE | 2024-08-14 21:02 | XRR_ITS ---
PROCEDURE INFORMATION: Exam: XR Chest Exam date and time: 08/14/2024 9:30 PM Age: 54 years old Clinical indication: Chest pressure; Prior surgery; Surgery date: 6+ months; Surgery type: Coronary stent; Patient HX: C/O chest pain. History of non hodgkins lymphoma; Additional info: Cp TECHNIQUE: Imaging protocol: Radiologic exam of the chest. Views: 1 view. COMPARISON: CR XR chest 1V portable [id number] 09/14/2022 7:23 PM FINDINGS: Lungs: Bilateral hilar to lower lobe atelectasis versus infiltrate. Pleural spaces: Unremarkable. No pleural effusion. No pneumothorax. Heart/Mediastinum: Unremarkable. No cardiomegaly. Bones/joints: Unremarkable. XR/XR chest 1V portable [id number] IMPRESSION: Bilateral hilar to lower lobe atelectasis versus infiltrate.
[2024-08-14 21:03] VITALS: BP 188/78; PULSE 85; RESP 20; TEMP 36.9; O2SAT 98; BMI 42.5
[2024-08-14 21:07] VITALS: BP 188/98; PULSE 84; RESP 17; O2SAT 98
[2024-08-14 21:25] LABS: Basophils % 0.4 %; Eosinophils # 0.2 10^3/uL (0.0-0.8); Eosinophils % 1.7 %; Hematocrit 44.2 % (37-53); Lymphocytes # 2.3 10^3/uL (0.8-4.8); Lymphocytes % 23.2 %; Mean Corpuscular HGB Conc 32.6 g/dL (30-55); Mean Corpuscular Hemoglobin 30.1 pg (27-33); Mean Corpuscular Volume 92.3 fl (82-101); Monocytes % 10.2 %; Neutrophils # 6.44 10^3/uL (1.8-7.7); Neutrophils % 63.8 %; Nucleated Red Blood Cells % 0 %; Platelet Count 245 10^3/cmm (157-399); Red Blood Count 4.79 10^6/uL (3.85-5.65); Red Cell Distribution Width 13.3 % (12.1-15.1); White Blood Count 10.09 10^3/uL (3.29-11.43)
--- NOTE | 2024-08-14 21:35 | CTR_ITS ---
PROCEDURE INFORMATION: Exam: CT Head Without Contrast Exam date and time: 08/14/2024 9:50 PM Age: 54 years old Clinical indication: Injury or trauma; Blunt trauma (contusions or hematomas); Patient HX: Patient struck frontal earlier today while walking. Anticoagulated. ; Additional info: Head inj TECHNIQUE: Imaging protocol: Computed tomography of the head without contrast. Radiation optimization: All CT scans at this facility use at least one of these dose optimization techniques: automated exposure control; mA and/or kV adjustment per patient size (includes targeted exams where dose is matched to clinical indication); or iterative reconstruction. COMPARISON: CT head wo con* [id number] 07/11/2020 8:31 AM RADIATION DOSE METRICS: Total DLP (mGy-cm): 1124.48 FINDINGS: Brain: Mild diffuse white matter disease likely reflecting chronic microvascular ischemic changes. Cerebral ventricles: No ventriculomegaly. Paranasal sinuses: Visualized sinuses are unremarkable. No fluid levels. Mastoid air cells: Visualized mastoid air cells are well aerated. Bones: Unremarkable. No acute fracture. Soft tissues: Unremarkable. CT/CT head wo con* [id number] IMPRESSION: Negative for intracranial hemorrhage or mass effect.
[2024-08-14 21:36] LABS: INR 0.87 (0.8-1.2)
[2024-08-14 21:37] VITALS: PULSE 78; RESP 18; O2SAT 95
[2024-08-14 21:37] LABS: Partial Thromboplastin Time 25.2 SECONDS (23.9-36.7)
[2024-08-14] MEDS: morphine 4 mg/mL SDV 1 mL IVP (21:44)
[2024-08-14] MEDS: aspirin 81 mg Chew Tablet 324 MG PO (21:44)
[2024-08-14] MEDS: ondansetron 2 mg/ML SDV 2 mL 4 MG IVP (21:44)
[2024-08-14] MEDS: nitroglycerin 1 gm/inch oint Pkt 2 INCH TOPICAL (21:45)
[2024-08-14 21:46] LABS: Troponin(5th) Baseline 14 ng/L (0-15)
[2024-08-14 21:54] LABS: Alanine Aminotransferase 31 U/L (0-41); Albumin Level 4.3 g/dL (3.5-5.2); Alkaline Phosphatase 91 U/L (40-130); Anion Gap 15.3 (5-19); Aspartate Amino Transferase 25 U/L (0-40); Blood Urea Nitrogen 23 mg/dL (6-20); Calcium 8.6 mg/dL (8.5-10.5); Carbon Dioxide 27 mmol/L (22-29); Chloride 100 mmol/L (98-107); Creatinine Clr Calc Pharmacy 148.5348; Globulin 2.3 g/dL (1.3-4.6); Glomerular Filtration Rate 88.6 mL/min (90-130); Glucose 111 mg/dL (65-115); NT Pro B Type Natriuretic Pept < 36 pg/mL (0-125); Osmolality Calculated 290 mOsm/kg (285-295); Potassium 4.3 mmol/L (3.5-5.1); Sodium 138 mmol/L (136-145); Total Bilirubin 0.2 mg/dL (0.15-1.2); Total Protein 6.6 g/dL (6.6-8.7)
[2024-08-14 22:07] VITALS: PULSE 75; RESP 20; O2SAT 89
--- NOTE | 2024-08-14 22:09 | W.ED.CHESTPA ---
HPI - Chest Pain General: Chief Complaint: Chest Pain Stated Complaint: chest pain Time Seen by Provider: 08/14/24 21:00 History of Present Illness: 54-year-old male patient with a history of coronary disease. He tells me he has a right coronary stent. He reports chest discomfort, shortness of breath, and cough. He has felt ill for a couple of days. Shortness of breath and chest discomfort started today. It is improved to some degree now. He says that his chest discomfort started this evening while going downstairs. He says it was a wave of discomfort going from his lower chest on the left side up into his neck. He had a near syncopal episode going down stairs, and hit his head on the wall, but was able to catch himself otherwise Related Data Home Medications Medication Instructions Recorded Confirmed meloxicam 7.5 mg tablet 7.5 mg PO DAILY 06/25/23 06/02/24 meloxicam 15 mg tablet mg PO 12/16/23 06/02/24 semaglutide 1 mg/dose (4 mg/3 mL) mg SUBCUT 05/27/24 06/02/24 subcutaneous pen injector ([employer]) testosterone undecanoate 237 mg 237 mg PO BID 05/27/24 06/02/24 capsule (Jatenzo) Previous Rx's Medication Instructions Recorded hydrocodone 10 mg-acetaminophen 1 tab PO QID PRN pain 30 days #120 07/31/21 325 mg tablet tabs aspirin 81 mg tablet,delayed 81 mg PO DAILY #30 tabs 09/04/23 release lisinopril 10 mg tablet 10 mg PO DAILY #90 tabs 11/17/23 evolocumab 140 mg/mL subcutaneous 140 mg SUBCUT .every 2 weeks #1 mL 11/27/23 pen injector (Romario Kraus) AFO to right #1 ea 12/16/23 furosemide 40 mg tablet 40 mg PO DAILY #100 tabs 05/27/24 potassium chloride 8 mEq 8 meq PO DAILY #100 tabs 05/27/24 tablet,extended release Custom molded Accommodative #1 ea 06/02/24 orthotics Orthopedic Boots #1 ea 06/02/24 metoprolol tartrate 25 mg tablet See Rx Instructions .Route 06/23/24 .COMPLEX #60 tabs clopidogrel 75 mg tablet 75 mg PO DAILY #30 tabs 07/30/24 levofloxacin 750 mg tablet 750 mg PO DAILY 7 days #7 tabs 08/15/24 Allergies Allergy/AdvReac Type Severity Reaction Status Date / Time atorvastatin AdvReac Severe Myalgia Verified 08/10/24 14:26 minocycline AdvReac Unknown FLUSHED - Verified 06/02/24 14:59 DRAINED FEELING PFSH ED PFSH: Medical History Diastolic heart failure Benign essential hypertension with target blood pressure below 140/90 Atherosclerosis of tribe coronary artery without angina pectoris Gross hematuria Encounter for long-term opiate analgesic use Opioid contract exists Chronic left hip pain Chronic pain of left knee Ankle pain, right Back pain with left-sided radiculopathy Surgical History H/O arthroscopic knee surgery History of foot surgery Family History Grandfather Cancer Social History Smoking and tobacco/nicotine status: former use of tobacco/nicotine Second hand smoke exposure: No Alcohol intake: current Alcohol intake frequency: few times a month Substance/Drug Use: never Physical Exam Const: COMMON NORMALS: no acute distress GENERAL APPEARANCE: cooperative; not ill appearing and not frail appearing HENMT: COMMON NORMALS: normocephalic, atraumatic and Normal external nose present HEAD & SCALP: normocephalic and atraumatic FACE & SINUS: normal facial exam and face symmetric NOSE: Normal external nose present Eye: COMMON NORMALS: Equal, round and reactive pupils present and EOMs intact bilaterally PUPIL: Yes Equal, round and reactive pupils present Neck/C-Spine: GENERAL: Yes trachea midline Chest: CHEST: Yes Symmetrical chest wall rise Resp: COMMON NORMALS: normal respiratory effort, No retractions, No use of accessory muscles and clear to auscultation bilaterally AUSCULTATION: clear to auscultation bilaterally Cardio: COMMON NORMALS: regular rate and regular rhythm RATE: regular rate RHYTHM: regular rhythm GI: COMMON NORMALS: Normal to inspection, nondistended, normoactive bowel sounds present Extremity: COMMON NORMALS: no pedal edema Neuro: LENKA COMA SCALE: document GCS findings Guild coma scale eye opening: Spontaneous Guild coma scale verbal response: Orientated Guild coma scale motor response: Obey commands Guild coma scale total score: 15 SENSORY EXAM: Yes extremities (intact) Psych: COMMON NORMALS: speech normal SPEECH: Yes normal speech Skin: COMMON NORMALS: no rashes or lesions noted GENERAL SKIN EXAM: no rashes or lesions noted Course Vital Signs: Vital signs: Vital Signs Temperature 98.4 F 08/14/24 21:03 Pulse Rate 67 08/15/24 00:56 Respiratory Rate 18 08/15/24 00:45 Blood Pressure 131/71 08/15/24 00:56 Pulse Oximetry 97 08/15/24 00:56 Oxygen Delivery Me thod Room Air 08/15/24 00:45 MDM - Chest Pain Medical Decision Making 54-year-old male with chest pain, and shortness of breath. He is afebrile. He was hypertensive on arrival, improved currently. White blood cell count is 10. BUN is 23. Chest x-ray shows bilateral lower lobe atelectasis versus infiltrate. Head CT is negative. The patient's BNP is nondetectable. Troponin stayed negative at [address] wave changes on EKG. He has a history of sleep apnea, and saturations have been upper 80s into the low 90s. He was offered observation, but states that he has to take care of his mother, and if at all possible would like to go home. He will be placed on Levaquin for bilateral lower lobe pneumonia. He has albuterol at home and will use it every 4 hours while awake for the first 48 hours. He knows to return for any worsening symptoms. Lab Data 08/14/24 21:12 08/14/24 21:12 Radiology Impressions Chest X-Ray 08/14/24 21:02 IMPRESSION: Bilateral hilar to lower lobe atelectasis versus infiltrate. Head CT 08/14/24 21:35 IMPRESSION: Negative for intracranial hemorrhage or mass effect. Laboratory Results WBC 10.09 10^3/uL (3.29-11.43) 08/14/24 21:12 RBC 4.79 10^6/uL (3.85-5.65) 08/14/24 21:12 Hgb 14.40 g/dL (11.27-16.99) 08/14/24 21:12 Hct 44.2 % (37-53) 08/14/24 21:12 MCV 92.3 fl (82-101) 08/14/24 21:12 MCH 30.1 pg (27-33) 08/14/24 21:12 MCHC 32.6 g/dL (30-55) 08/14/24 21:12 RDW 13.3 % (12.1-15.1) 08/14/24 21:12 Plt Count 245 10^3/cmm (157-399) 08/14/24 21:12 MPV 10.0 fL (7.4-10.4) 08/14/24 21:12 Neut % (Auto) 63.8 % 08/14/24 21:12 Lymph % (Auto) 23.2 % 08/14/24 21:12 [place] % (Auto) 10.2 % 08/14/24 21:12 Eos % (Auto) 1.7 % 08/14/24 21:12 Baso % (Auto) 0.4 % 08/14/24 21:12 Neut # (Auto) 6.44 10^3/uL (1.8-7.7) 08/14/24 21:12 Lymph # (Auto) 2.3 10^3/uL (0.8-4.8) 08/14/24 21:12 [place] # (Auto) 1.0 10^3/uL (0.2-0.9) H 08/14/24 21:12 Eos # (Auto) 0.2 10^3/uL (0.0-0.8) 08/14/24 21:12 Baso # (Auto) 0.0 10^3/uL (0.0-0.1) 08/14/24 21:12 Nucleated RBC % (auto) 0 % 08/14/24 21:12 Nucleated RBCs # 0.0 /100WBC 08/14/24 21:12 PT 12.10 SECONDS (12.1-14.9) 08/14/24 21:12 INR 0.87 (0.8-1.2) 08/14/24 21:12 APTT 25.2 SECONDS (23.9-36.7) 08/14/24 21:12 Sodium 138 mmol/L (136-145) 08/14/24 21:12 Potassium 4.3 mmol/L (3.5-5.1) 08/14/24 21:12 Chloride 100 mmol/L (98-107) 08/14/24 21:12 Carbon Dioxide 27 mmol/L (22-29) 08/14/24 21:12 Anion Gap 15.3 (5-19) 08/14/24 21:12 BUN 23 mg/dL (6-20) H 08/14/24 21:12 Creatinine 0.9 mg/dL (0.7-1.2) 08/14/24 21:12 GFR Calculation 88.6 mL/min (90-130) L 08/14/24 21:12 Glucose 111 mg/dL (65-115) 08/14/24 21:12 Calculated Osmolality 290 mOsm/kg (285-295) 08/14/24 21:12 Calcium 8.6 mg/dL (8.5-10.5) 08/14/24 21:12 Total Bilirubin 0.2 mg/dL (0.15-1.2) 08/14/24 21:12 AST 25 U/L (0-40) 08/14/24 21:12 ALT 31 U/L (0-41) 08/14/24 21:12 Alkaline Phosphatase 91 U/L (40-130) 08/14/24 21:12 Troponin T Baseline 14 ng/L (0-15) 08/14/24 21:12 Troponin T 120 Minute 12.52 ng/L (0-15) 08/14/24 22:58 Delta Troponin T -1.48 ABS# (0-10) L 08/14/24 22:58 NT-Pro-B Natriuret Pep < 36 pg/mL (0-125) 08/14/24 21:12 Total Protein 6.6 g/dL (6.6-8.7) 08/14/24 21:12 Albumin 4.3 g/dL (3.5-5.2) 08/14/24 21:12 Globulin 2.3 g/dL (1.3-4.6) 08/14/24 21:12 All radiology interpretation(s) finalized by discharge Discharge Plan Discharge Patient Disposition: Home Clinical Impression: Pneumonia Condition: Stable Prescriptions: New levofloxacin 750 mg tablet 750 mg PO DAILY 7 Days Qty: 7 0RF No Action hydrocodone-acetaminophen 10-325 mg tablet 1 tab PO QID PRN (Reason: pain) 30 Days Qty: 120 0RF Rx Instructions: Fill on or after 09/03/21 meloxicam 7.5 mg tablet 7.5 mg PO DAILY meloxicam 15 mg tablet PO (DME) AFO to right See Rx Instructions .Route .MEDSUPPLY Qty: 1 0RF Rx Instructions: As directed (DME) Custom molded Accommodative orthotics See Rx Instructions .Route .MEDSUPPLY Qty: 1 0RF Rx Instructions: As directed by [employer] (DME) Orthopedic Boots See Rx Instructions .Route .MEDSUPPLY Qty: 1 0RF Rx Instructions: As directed Ozempic 1 mg/dose (4 mg/3 mL) pen injector SUBCUT Jatenzo 237 mg capsule 237 mg PO BID Rx Instructions: must administer with a meal/food furosemide 40 mg tablet 40 mg PO DAILY Qty: 100 3RF Rx Instructions: take an extra 40mg tablet once a week potassium chloride 8 mEq tablet extended release 8 meq PO DAILY Qty: 100 3RF Rx Instructions: Take an extra tablet once a week lisinopril 10 mg tablet 10 mg PO DAILY Qty: 90 3RF Repatha SureClick 140 mg/mL pen injector 140 mg SUBCUT .every 2 weeks Qty: 1 12RF metoprolol tartrate 25 mg tablet See Rx Instructions .ROUTE .COMPLEX Qty: 60 5RF Dose Instruction: TAKE ONE TABLET BY MOUTH TWICE DAILY Rx Instructions: TAKE ONE TABLET BY MOUTH TWICE DAILY clopidogrel 75 mg tablet 75 mg PO DAILY Qty: 30 10RF aspirin 81 mg Tablet,Delayed Release (Dr/Ec) 81 mg PO DAILY Qty: 30 10RF Discharge Orders: Discharge ED (Routine); Ordered 08/15/24 Ordered By: Magdaleno Michel Referrals: Deanna Rodriguez FNP [Primary Care Provider] - 1-3 days Patient Instructions: Pneumonia (ED), Opioid Safety, Pain Management Activity Restrictions/Additional Instructions: Use your albuterol nebulizer every 4 hours while awake for the first 48 hours whether you feel you needed or not, then as needed following that. Return to the ER for worsening shortness of breath despite treatment, worsening chest pain, fever despite 2-3 doses of antibiotics, other concerning symptoms. Call your doctor on Friday for a follow-up appointment this week. Coding Level of Care Code ED Sheet Roller Operator for Fortino Love
[2024-08-14 22:49] VITALS: BP 131/71; PULSE 71; RESP 18; O2SAT 92
--- NOTE | 2024-08-14 23:07 | ECG_ITS ---
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 Measurements Intervals [place] Rate: 61 P: 15 [place]: 154 QRS: 30 QRSD: 96 T: -4 QT: 349 QTc: 354 Interpretive Statements SINUS RHYTHM Compared to ECG 08/14/2024 20:56:23 T-wave abnormality no longer present Electronically Signed On 08-15-2024 14:13:02 MANAGER USER EXPERIENCE by Emili Jasmine M.D. [id number]
[2024-08-14 23:28] LABS: Troponin 5 2HR 12.52 ng/L (0-15); Troponin 5 2HR Delta -1.48 ABS# (0-10)
[2024-08-15 00:45] VITALS: PULSE 62; RESP 18; O2SAT 96
[2024-08-15] MEDS: levoFLOXacin 750 mg Tablet PO (00:55)
[2024-08-15 00:56] VITALS: BP 131/71; PULSE 67; O2SAT 97
== END 2024-08-15 00:57 | disposition home or self-care (01) ==
PROVIDERS: Emergency Provider Emergency Medicine; PCP Nurse Practitioner Family
DX: J18.9 Pneumonia, unspecified organism (principal); Z79.82 Long term (current) use of aspirin; Z79.02 Long term (current) use of antithrombotics/antiplatelets; Z87.891 Personal history of nicotine dependence; I11.0 Hypertensive heart disease with heart failure; I50.30 Unspecified diastolic (congestive) heart failure
CPT/HCPCS: 36415; 70450; 71045; 80053; 83880; 84484; 85025; 85610; 85730; 93005; 96374; 96375; 99285; J2270; J2405

== ENCOUNTER 2024-09-10 21:46 | Emergency (ER) | payer MEDICARE, SELFPAY ==
--- NOTE | 2024-09-10 21:48 | ECG_ITS ---
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 Measurements Intervals [place] Rate: 67 P: 5 NE: 149 QRS: 49 QRSD: 97 T: -25 QT: 330 QTc: 348 Interpretive Statements SINUS RHYTHM NONSPECIFIC ST & T-WAVE ABNORMALITY Compared to ECG 08/14/2024 23:07:43 T-wave abnormality now present Electronically Signed On 09-11-2024 10:24:31 CLINICAL TRIALS DATA COORDINATOR by Hector Lind M.D. [id number]
--- NOTE | 2024-09-10 21:52 | XRR_ITS ---
PROCEDURE INFORMATION: Exam: XR Chest Exam date and time: 09/10/2024 10:06 PM Age: 54 years old Clinical indication: Chest pressure; Prior surgery; Surgery date: 6+ months; Surgery type: Cardiac stent; Patient HX: Chest pain; SOB TECHNIQUE: Imaging protocol: Radiologic exam of the chest. Views: 1 view. COMPARISON: CR (CHEST, ) 08/14/2024 9:30 PM FINDINGS: Lungs: Central vascular congestion . hypoaeration and bibasilar atelectasis Pleural spaces: Unremarkable. No pleural effusion. No pneumothorax. Heart/Mediastinum: Unremarkable. No cardiomegaly. Bones/joints: Unremarkable. XR/XR chest 1V portable [id number] IMPRESSION: 1. Central vascular congestion 2. Hypoaeration with bibasilar atelectasis
[2024-09-10 21:54] VITALS: BP 137/87; PULSE 67; RESP 18; TEMP 36.3; O2SAT 99; BMI 43.8
[2024-09-10 22:14] LABS: Basophils % 0.5 %; Eosinophils # 0.2 10^3/uL (0.0-0.8); Eosinophils % 2.2 %; Hematocrit 44.7 % (37-53); Lymphocytes # 2.1 10^3/uL (0.8-4.8); Lymphocytes % 24.2 %; Mean Corpuscular HGB Conc 32.9 g/dL (30-55); Mean Corpuscular Hemoglobin 29.6 pg (27-33); Mean Corpuscular Volume 89.9 fl (82-101); Mean Platelet Volume 9.9 fL (7.4-10.4); Monocytes # 0.8 10^3/uL (0.2-0.9); Monocytes % 9.7 %; Neutrophils # 5.43 10^3/uL (1.8-7.7); Neutrophils % 62.7 %; Nucleated Red Blood Cells % 0 %; Platelet Count 234 10^3/cmm (157-399); Red Blood Count 4.97 10^6/uL (3.85-5.65); Red Cell Distribution Width 13.2 % (12.1-15.1); White Blood Count 8.65 10^3/uL (3.29-11.43)
[2024-09-10 22:36] LABS: Troponin(5th) Baseline 13 ng/L (0-15)
[2024-09-10 22:43] LABS: Alanine Aminotransferase 25 U/L (0-41); Albumin Level 4.4 g/dL (3.5-5.2); Alkaline Phosphatase 72 U/L (40-130); Anion Gap 13.4 (5-19); Aspartate Amino Transferase 19 U/L (0-40); Blood Urea Nitrogen 29 mg/dL (6-20); Calcium 8.8 mg/dL (8.5-10.5); Carbon Dioxide 29 mmol/L (22-29); Chloride 99 mmol/L (98-107); Creatinine Clr Calc Pharmacy 146.9073; Globulin 2.3 g/dL (1.3-4.6); Glomerular Filtration Rate 88.6 mL/min (90-130); Glucose 101 mg/dL (65-115); NT Pro B Type Natriuretic Pept < 36 pg/mL (0-125); Osmolality Calculated 290 mOsm/kg (285-295); Potassium 4.4 mmol/L (3.5-5.1); Sodium 137 mmol/L (136-145); Total Bilirubin 0.2 mg/dL (0.15-1.2); Total Protein 6.7 g/dL (6.6-8.7)
[2024-09-10 23:14] VITALS: BP 126/78; PULSE 66; RESP 17; O2SAT 94
--- NOTE | 2024-09-10 23:45 | ED_ITS ---
HPI - Chest Pain 2 General: Chief Complaint: Chest Pain Stated Complaint: SoB CP high bp, left shoulder pain Time Seen by Provider: 09/10/24 22:10 History of Present Illness: 54-year-old male patient with a history of coronary disease. He had a stent placed a year ago almost today. He also had a recent diagnosis of a pneumonia 3 weeks ago, for which she took a course of Levaquin. He was improved until about 4 days ago, when he began to note increasing tiredness, an achy sensation in his left upper chest radiating to his left arm, and left neck. He can feel his blood pressure in my neck and head . On the left side. He complains also of several episodes of an electric shock type sensation radiating from his chest throughout his body. These are instantaneous, but he notes that he had these prior to his stent placement last year. Related Data Home Medications Medication Instructions Recorded Confirmed meloxicam 7.5 mg tablet 7.5 mg PO DAILY 06/25/23 06/02/24 meloxicam 15 mg tablet mg PO 12/16/23 06/02/24 semaglutide 1 mg/dose (4 mg/3 mL) mg SUBCUT 05/27/24 06/02/24 subcutaneous pen injector (Ozempic) testosterone undecanoate 237 mg 237 mg PO BID 05/27/24 06/02/24 capsule (Jatenzo) Previous Rx's Medication Instructions Recorded hydrocodone 10 mg-acetaminophen 1 tab PO QID PRN pain 30 days #120 07/31/21 325 mg tablet tabs aspirin 81 mg tablet,delayed 81 mg PO DAILY #30 tabs 09/04/23 release lisinopril 10 mg tablet 10 mg PO DAILY #90 tabs 11/17/23 evolocumab 140 mg/mL subcutaneous 140 mg SUBCUT .every 2 weeks #1 mL 11/27/23 pen injector (Romario Kraus) AFO to right #1 ea 12/16/23 furosemide 40 mg tablet 40 mg PO DAILY #100 tabs 05/27/24 potassium chloride 8 mEq 8 meq PO DAILY #100 tabs 05/27/24 tablet,extended release Custom molded Accommodative #1 ea 06/02/24 orthotics Orthopedic Boots #1 ea 06/02/24 metoprolol tartrate 25 mg tablet See Rx Instructions .Route 06/23/24 .COMPLEX #60 tabs clopidogrel 75 mg tablet 75 mg PO DAILY #30 tabs 07/30/24 Allergies Allergy/AdvReac Type Severity Reaction Status Date / Time atorvastatin AdvReac Severe Myalgia Verified 09/10/24 21:58 minocycline AdvReac Unknown FLUSHED - Verified 09/10/24 21:58 DRAINED FEELING PFSH ED 2 PFSH: Medical History Diastolic heart failure Benign essential hypertension with target blood pressure below 140/90 Atherosclerosis of red devil coronary artery without angina pectoris Gross hematuria Encounter for long-term opiate analgesic use Opioid contract exists Chronic left hip pain Chronic pain of left knee Ankle pain, right Back pain with left-sided radiculopathy Surgical History H/O arthroscopic knee surgery History of foot surgery Family History Grandfather Cancer Social History Smoking and tobacco/nicotine status: former use of tobacco/nicotine Second hand smoke exposure: No Alcohol intake: current Alcohol intake frequency: few times a month Substance/Drug Use: never Physical Exam 2 Const: COMMON NORMALS: no acute distress GENERAL APPEARANCE: cooperative; not ill appearing and not frail appearing HENMT: COMMON NORMALS: normocephalic, atraumatic and Normal external nose present HEAD & SCALP: normocephalic and atraumatic FACE & SINUS: normal facial exam and face symmetric NOSE: Normal external nose present Eye: COMMON NORMALS: Equal, round and reactive pupils present and EOMs intact bilaterally PUPIL: Yes Equal, round and reactive pupils present Neck/C-Spine: GENERAL: Yes trachea midline Chest: CHEST: Yes Symmetrical chest wall rise Resp: COMMON NORMALS: normal respiratory effort, No retractions, No use of accessory muscles and clear to auscultation bilaterally AUSCULTATION: clear to auscultation bilaterally Cardio: COMMON NORMALS: regular rate and regular rhythm RATE: regular rate RHYTHM: regular rhythm GI: COMMON NORMALS: Normal to inspection, nondistended, normoactive bowel sounds present Extremity: COMMON NORMALS: no pedal edema Neuro: NANCY COMA SCALE: document GCS findings Gilmer coma scale eye opening: Spontaneous Nancy coma scale verbal response: Orientated Gilmer coma scale motor response: Obey commands Nancy coma scale total score: 15 S ENSORY EXAM: Yes extremities (intact) Psych: COMMON NORMALS: speech normal SPEECH: Yes normal speech Skin: COMMON NORMALS: no rashes or lesions noted GENERAL SKIN EXAM: no rashes or lesions noted Course 2 Vital Signs: Vital signs: Vital Signs Temperature 97.3 F L 09/10/24 21:54 Pulse Rate 65 09/11/24 01:00 Respiratory Rate 19 H 09/11/24 01:00 Blood Pressure 135/73 09/11/24 01:00 Pulse Oximetry 95 09/11/24 01:00 Oxygen Delivery Me thod Room Air 09/10/24 23:14 MDM - Chest Pain Medical Decision Making Vitals been stable here. He has not had any more electric shock sensations. Chest x-ray reveals mild vascular congestion, is otherwise normal. CBC is normal. BMP is not remarkable. BNP is less than 36. His 2-hour delta is -1.8. Bedside ultrasound shows no significant aneurysmal quality of the carotid on the left or he is symptomatic. He will be allowed discharge. To return for any worsening symptoms. Lab Data 09/10/24 22:09 09/10/24 22:09 Radiology Impressions Chest X-Ray 09/10/24 21:52 IMPRESSION: 1. Central vascular congestion 2. Hypoaeration with bibasilar atelectasis Laboratory Results WBC 8.65 10^3/uL (3.29-11.43) 09/10/24 22:09 RBC 4.97 10^6/uL (3.85-5.65) 09/10/24 22:09 Hgb 14.70 g/dL (11.27-16.99) 09/10/24 22:09 Hct 44.7 % (37-53) 09/10/24 22:09 MCV 89.9 fl (82-101) 09/10/24 22:09 MCH 29.6 pg (27-33) 09/10/24 22:09 MCHC 32.9 g/dL (30-55) 09/10/24 22:09 RDW 13.2 % (12.1-15.1) 09/10/24 22:09 Plt Count 234 10^3/cmm (157-399) 09/10/24 22:09 MPV 9.9 fL (7.4-10.4) 09/10/24 22:09 Neut % (Auto) 62.7 % 09/10/24 22:09 Lymph % (Auto) 24.2 % 09/10/24 22:09 [place] % (Auto) 9.7 % 09/10/24 22:09 Eos % (Auto) 2.2 % 09/10/24 22:09 Baso % (Auto) 0.5 % 09/10/24 22:09 Neut # (Auto) 5.43 10^3/uL (1.8-7.7) 09/10/24 22:09 Lymph # (Auto) 2.1 10^3/uL (0.8-4.8) 09/10/24 22:09 [place] # (Auto) 0.8 10^3/uL (0.2-0.9) 09/10/24 22:09 Eos # (Auto) 0.2 10^3/uL (0.0-0.8) 09/10/24 22:09 Baso # (Auto) 0.0 10^3/uL (0.0-0.1) 09/10/24 22:09 Nucleated RBC % (auto) 0 % 09/10/24 22:09 Nucleated RBCs # 0.0 /100WBC 09/10/24 22:09 Sodium 137 mmol/L (136-145) 09/10/24 22:09 Potassium 4.4 mmol/L (3.5-5.1) 09/10/24 22:09 Chloride 99 mmol/L (98-107) 09/10/24 22:09 Carbon Dioxide 29 mmol/L (22-29) 09/10/24 22:09 Anion Gap 13.4 (5-19) 09/10/24 22:09 BUN 29 mg/dL (6-20) H 09/10/24 22:09 Creatinine 0.9 mg/dL (0.7-1.2) 09/10/24 22:09 GFR Calculation 88.6 mL/min (90-130) L 09/10/24 22:09 Glucose 101 mg/dL (65-115) 09/10/24 22:09 Calculated Osmolality 290 mOsm/kg (285-295) 09/10/24 22:09 Calcium 8.8 mg/dL (8.5-10.5) 09/10/24 22:09 Total Bilirubin 0.2 mg/dL (0.15-1.2) 09/10/24 22:09 AST 19 U/L (0-40) 09/10/24 22:09 ALT 25 U/L (0-41) 09/10/24 22:09 Alkaline Phosphatase 72 U/L (40-130) 09/10/24 22:09 Troponin T Baseline 13 ng/L (0-15) 09/10/24 22:09 Troponin T 120 Minute 11.22 ng/L (0-15) 09/10/24 23:49 Delta Troponin T -1.78 ABS# (0-10) L 09/10/24 23:49 NT-Pro-B Natriuret Pep < 36 pg/mL (0-125) 09/10/24 22:09 Total Protein 6.7 g/dL (6.6-8.7) 09/10/24 22:09 Albumin 4.4 g/dL (3.5-5.2) 09/10/24 22:09 Globulin 2.3 g/dL (1.3-4.6) 09/10/24 22:09 All radiology interpretation(s) finalized by discharge Discharge Plan Discharge Patient Disposition: Home Clinical Impression: Atypical chest pain, Palpitations Condition: Stable Prescriptions: No Action hydrocodone-acetaminophen 10-325 mg tablet 1 tab PO QID PRN (Reason: pain) 30 Days Qty: 120 0RF Rx Instructions: Fill on or after 09/03/21 meloxicam 7.5 mg tablet 7.5 mg PO DAILY meloxicam 15 mg tablet PO (DME) AFO to right See Rx Instructions .Route .MEDSUPPLY Qty: 1 0RF Rx Instructions: As directed (DME) Custom molded Accommodative orthotics See Rx Instructions .Route .MEDSUPPLY Qty: 1 0RF Rx Instructions: As directed by [facility] (DME) Orthopedic Boots See Rx Instructions .Route .MEDSUPPLY Qty: 1 0RF Rx Instructions: As directed Ozempic 1 mg/dose (4 mg/3 mL) pen injector SUBCUT Jatenzo 237 mg capsule 237 mg PO BID Rx Instructions: must administer with a meal/food furosemide 40 mg tablet 40 mg PO DAILY Qty: 100 3RF Rx Instructions: take an extra 40mg tablet once a week potassium chloride 8 mEq tablet extended release 8 meq PO DAILY Qty: 100 3RF Rx Instructions: Take an extra tablet once a week lisinopril 10 mg tablet 10 mg PO DAILY Qty: 90 3RF Repatha SureClick 140 mg/mL pen injector 140 mg SUBCUT .every 2 weeks Qty: 1 12RF metoprolol tartrate 25 mg tablet See Rx Instructions .ROUTE .COMPLEX Qty: 60 5RF Dose Instruction: TAKE ONE TABLET BY MOUTH TWICE DAILY Rx Instructions: TAKE ONE TABLET BY MOUTH TWICE DAILY clopidogrel 75 mg tablet 75 mg PO DAILY Qty: 30 10RF aspirin 81 mg Tablet,Delayed Release (Dr/Ec) 81 mg PO DAILY Qty: 30 10RF Discharge Orders: Discharge ED (Routine); Ordered 09/11/24 Ordered By: Magdaleno Michel Referrals: Deanna Rodriguez FNP [Primary Care Provider] - 1-3 days Patient Instructions: Chest Pain (ED), Heart Palpitations (ED), Opioid Safety, Pain Management Activity Restrictions/Additional Instructions: Return for worsening symptoms such as worsening discomfort, throbbing, pulsating, palpitations or rapid heart rates, shortness of breath, fever, any other concerning symptoms. See your doctor next week. Coding Level of Care Code ED Tafe Registrar for Fortino Love
--- NOTE | 2024-09-10 23:52 | ECG_ITS ---
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 Measurements Intervals [place] Rate: 103 P: 0 [place]: 0 QRS: -42 QRSD: 108 T: 101 QT: 324 QTc: 426 Interpretive Statements SINUS TACHYCARDIA WITH SINUS ARRHYTHMIA LEFT AXIS DEVIATION [QRS AXIS < -30] PATTERN CONSISTENT WITH PULMONARY DISEASE VOLTAGE CRITERIA FOR LVH [MEETS CRITERIA IN ONE OF: R(aVL), S(V1), R(V5), R(V5/V6)+S(V1)] ST DEVIATION AND MODERATE T-WAVE ABNORMALITY, CONSIDER LATERAL ISCHEMIA [-0.1+ mV T-WAVE IN I/aVL/V5/V6] Compared to ECG 09/11/2024 00:27:21 Left-axis deviation now present Left ventricular hypertrophy now present T-wave abnormality now present Sinus rhythm no longer present Electronically Signed On 09-12-2024 19:02:19 COTTON GIN YARD SUPERVISOR by Hector Lind M.D. [id number]
[2024-09-11] VITALS: BP 127/96; PULSE 63; RESP 17; O2SAT 96
[2024-09-11 00:16] LABS: Troponin 5 2HR 11.22 ng/L (0-15); Troponin 5 2HR Delta -1.78 ABS# (0-10)
[2024-09-11 01:00] VITALS: BP 135/73; PULSE 65; RESP 19; O2SAT 95
--- NOTE | 2024-09-11 03:52 | ECG_ITS ---
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 Measurements Intervals [place] Rate: 62 P: 19 [place]: 166 QRS: 32 QRSD: 102 T: 7 QT: 368 QTc: 376 Interpretive Statements SINUS RHYTHM Compared to ECG 09/10/2024 21:51:09 T-wave abnormality no longer present Electronically Signed On 09-12-2024 19:08:42 DRINK MIXER by Hector Lind M.D. [id number]
== END 2024-09-11 01:07 | disposition home or self-care (01) ==
PROVIDERS: Physician Assistant; Emergency Provider Emergency Medicine; PCP Nurse Practitioner Family
DX: R07.89 Other chest pain (principal); R00.2 Palpitations; Z79.02 Long term (current) use of antithrombotics/antiplatelets; Z87.891 Personal history of nicotine dependence; I25.10 Atherosclerotic heart disease of native coronary artery without angina pectoris; I11.0 Hypertensive heart disease with heart failure; I50.30 Unspecified diastolic (congestive) heart failure
CPT/HCPCS: 36415; 71045; 80053; 83880; 84484; 85025; 93005; 99285

== ENCOUNTER → 2024-09-20 14:23 | Outpatient (BNVA) | payer MEDICARE, SELFPAY | PROVIDERS: PCP Nurse Practitioner Family; Visit Provider Podiatrist Foot & Ankle Surgery | DX: L60.3 Nail dystrophy (principal); M19.271 Secondary osteoarthritis, right ankle and foot; I73.9 Peripheral vascular disease, unspecified; E11.42 Type 2 diabetes mellitus with diabetic polyneuropathy | CPT/HCPCS: 11721 ==

== ENCOUNTER → 2024-10-08 12:08 | Outpatient (BNVA) | payer MEDICARE, SELFPAY | PROVIDERS: PCP Nurse Practitioner Family; Visit Provider Podiatrist Foot & Ankle Surgery | DX: M25.571 Pain in right ankle and joints of right foot (principal); M19.271 Secondary osteoarthritis, right ankle and foot; I73.9 Peripheral vascular disease, unspecified; T85.848D Pain due to other internal prosthetic devices, implants and grafts, subsequent encounter; Y79.2 Prosthetic and other implants, materials and accessory orthopedic devices associated with adverse incidents | CPT/HCPCS: 73610; 99213 ==

== ENCOUNTER → 2024-10-18 13:07 | Outpatient (BNVA) | payer MEDICARE, SELFPAY | PROVIDERS: PCP Nurse Practitioner Family; Visit Provider Podiatrist Foot & Ankle Surgery | DX: M79.672 Pain in left foot (principal); L60.0 Ingrowing nail; M19.271 Secondary osteoarthritis, right ankle and foot; I73.9 Peripheral vascular disease, unspecified; T85.848D Pain due to other internal prosthetic devices, implants and grafts, subsequent encounter; Y79.2 Prosthetic and other implants, materials and accessory orthopedic devices associated with adverse incidents | CPT/HCPCS: 11730; 73630; 99214 ==

== ENCOUNTER → 2025-01-17 12:16 | Outpatient (BNVA) | payer MEDICARE, SELFPAY | PROVIDERS: PCP Nurse Practitioner Family; Visit Provider Internal Medicine Cardiovascular Disease | DX: I25.10 Atherosclerotic heart disease of native coronary artery without angina pectoris (principal); I11.0 Hypertensive heart disease with heart failure; I50.30 Unspecified diastolic (congestive) heart failure; R00.2 Palpitations; R06.02 Shortness of breath; Z98.61 Coronary angioplasty status; R07.9 Chest pain, unspecified; Z87.891 Personal history of nicotine dependence; C84.A9 Cutaneous T-cell lymphoma, unspecified, extranodal and solid organ sites | CPT/HCPCS: 93005; 99214 ==

== ENCOUNTER 2025-01-31 07:25 | Outpatient (CLI) | payer MEDICARE, SELFPAY ==
--- NOTE | 2025-01-31 | ECG_ITS ---
[facility] Mobile Test Date: 2025-01-31 Pat Name: Stephen Byrnes Department: Room: Gender: Male Attacher: : 1970 Requested By: Mahendra Mendez Order Number: [id number] Tessa MD: Mahendra Mendez M.D. Interpretive Statements Lung unchanged pre/post procedure; Intraprocedure shortess of breath; Symptoms resoled by discharge PROCEDURE: At the baseline, the EKG revealed normal sinus rhythm with normal ST Ts. The baseline heart was 71 bpm with a blood pressue of 153/99 mm of Hg Lexiscan was infused over a period of 20 seconds. A total of 0.4 milligrams of Lexiscan was infused. The stress phase was continued for a total of 5 minutes. Heart rate at the end of the stress phase was 88 bpm with a blood pressure 144/89 mm of Hg. The EKG at the peak infusion revealed no significant changes. Sestamibi was injected 20 seconds after the Lexiscan infusion. Heart rate at the end of the recovery phase was 80 bpm with a blood pressure of 138/94 mm of Hg. CONCLUSION: 1. No significant EKG changes with the LexiScan infusion 2. No LexiScan induced chest pain or cardiac arrhythmia 3. Normal blood pressure and heart rate response 4. Sestamibi/sestamibi perfusion scan pending; see separate report. Electronically Signed On 02-06-2025 13:25:05 CDT by Mahendra Mendez M.D. [email or web address]
[2025-01-31 07:36] VITALS: BMI 44.7
--- NOTE | 2025-01-31 07:41 | NMCV_ITS ---
NM radha perf SPECT r/s* [id number] Stephen Byrnes Age: 54 Gender: M : 1970 Exam Date: 01/31/2025 08:40 Ordering Phys: Mahendra Mendez MD ([email or web address]) Technologist: ETIENNE Christian Exam Location: [facility] Indications: cp STRESS TEST [facility] IMAGE PROTOCOL Rest/Stress 1 Lexiscan Day Radiopharmaceutical Dose (mCi) Administration Site Administered by Rest: Tc-99m 10.8 IV Natalee Morales ARCHIVES DIRECTOR Sestamibi Stress:Tc-99m 33 IV Natalee Morales, ARCHIVES DIRECTOR Sestamibi Rest: 31-Jan-2025 60 Discovery 630 Stress: 31-Jan-2025 15 Discovery 630 0.4mg Lexiscan. Images obtained in supine and prone position. SPECT RESULTS Technical Quality: Good Raw Data Analysis: Normal Image Corrections: No attenuation or motion correction applied Summed Stress Score: 3 Summed Rest Score: 7 Summed Difference Score: 1 PERFUSION FINDINGS Small to moderate area of minimal to moderately decreased aseptic in the mid basal, mid and apical inferior segment. Some reversibility was noted in the basal inferior segment FUNCTIONAL RESULTS (calculated via Gated SPECT) Stress Image LV EF (%): 55 Stress EDV (mL):161 TID: 1.05 Stress ESV (mL):73 FUNCTIONAL FINDINGS: Segmental wall motion analysis revealing no gross wall motion abnormalities IMPRESSIONS 1. Myocardial perfusion imaging revealing small to moderate area of minimal to moderate decreased tracer uptake in the inferior wall region with some reversibility at the base suggestive of myocardial scarring with ischemia in the distribution of the right coronary artery.(Summed difference score of 1) 2. Normal LV ejection fraction of 55%. 3. LV wall motion analysis revealing no gross wall motion abnormalities. 4. Mildly dilated LV cavity with an end-systolic volume of 73 mL Compared to the study from 08/19/2023, the ischemic burden is much less(summed difference score of 13 versus 1) Dr Mahendra Mendez MD [facility] (Electronically Signed) Final Date: 31 January 2025 22:00 S
[2025-01-31] MEDS: regadenoson 0.4 Mg/5 ml Syringe IVP (09:28)
[2025-01-31] MEDS: aminophylline 25 mg/mL SDV 20 mL IVP (09:32)
[2025-01-31 09:40] VITALS: BP 138/72; PULSE 83
== END 2025-01-31 07:26 | disposition home or self-care (01) ==
LOC: CDL 07:26
PROVIDERS: PCP Nurse Practitioner Family; Visit Provider Internal Medicine Cardiovascular Disease
DX: R06.02 Shortness of breath (principal); R93.1 Abnormal findings on diagnostic imaging of heart and coronary circulation; I42.0 Dilated cardiomyopathy
CPT/HCPCS: 36415; 78452; 93017; 96374; 96375; A9500; J0280; J2785

== ENCOUNTER → 2025-02-07 12:42 | Outpatient (BNVA) | payer MEDICARE, SELFPAY | PROVIDERS: PCP Nurse Practitioner Family; Visit Provider Specialist | DX: E11.69 Type 2 diabetes mellitus with other specified complication (principal); L60.3 Nail dystrophy; G56.03 Carpal tunnel syndrome, bilateral upper limbs; M47.22 Other spondylosis with radiculopathy, cervical region; M50.30 Other cervical disc degeneration, unspecified cervical region; M19.271 Secondary osteoarthritis, right ankle and foot; I73.9 Peripheral vascular disease, unspecified; T85.848D Pain due to other internal prosthetic devices, implants and grafts, subsequent encounter; Y79.2 Prosthetic and other implants, materials and accessory orthopedic devices associated with adverse incidents | CPT/HCPCS: 11721; 73110; 99205 ==

== ENCOUNTER → 2025-02-17 14:16 | Outpatient (BNVA) | payer MEDICARE, SELFPAY | PROVIDERS: PCP Nurse Practitioner Family; Visit Provider Internal Medicine Cardiovascular Disease | DX: I11.0 Hypertensive heart disease with heart failure (principal); I50.30 Unspecified diastolic (congestive) heart failure; I25.10 Atherosclerotic heart disease of native coronary artery without angina pectoris; R00.2 Palpitations; R06.02 Shortness of breath; R94.39 Abnormal result of other cardiovascular function study; C84.A9 Cutaneous T-cell lymphoma, unspecified, extranodal and solid organ sites; Z79.01 Long term (current) use of anticoagulants; Z79.82 Long term (current) use of aspirin; Z87.891 Personal history of nicotine dependence; I25.118 Atherosclerotic heart disease of native coronary artery with other forms of angina pectoris | CPT/HCPCS: 99214 ==

== ENCOUNTER 2025-03-02 06:07 | Outpatient (CLI) | payer MEDICARE, SELFPAY ==
[2025-03-02] VITALS (24 sets, daily range): BP systolic 118–166; BP diastolic 61–96; PULSE 55–71; RESP 16–21; TEMP 37.2; O2SAT 91–96; BMI 45.0
--- NOTE | 2025-03-02 06:00 | XACV_ITS ---
Exam Room: 2 Ht: 183 cm Wt: 151 kg BSA: 2.84 m2 Gender: Male : 1970 Any Known Allergies: Other Exam Priority: Routine Procedure(s): Procedure Description: Diagnostic procedure Procedure Description: Left Heart Catheterization Procedure Description: Left ventriculography Procedure Description: Coronary Angiography Procedure Description: Pressure Wire Andrea NESS; Diagnostic Cath Status: Elective Diagnostic Findings * The left main is a medium caliber vessel with no significant stenotic lesion. * The left anterior descending artery is a medium caliber vessel which was found to have 30 to 40% diffuse irregular narrowing in the proximal to mid segment. The distal artery was found to have minimal intimal regularities. No significant stenotic lesions were noted. The first 2 diagonal branch was found to be of equal caliber with minimal intimal irregularities.. * The left circumflex artery is a medium to large caliber codominant vessel with mild diffuse intimal regularities. No significant stenotic lesions were noted. * The right coronary artery is a medium caliber codominant vessel which was found to have around 50 to 60% diffuse disease in the proximal segment. The distal artery was found to have 20 to 30% diffuse irregular narrowing. Diffuse intimal irregularities were noted in the PLV and the PDA branch of the artery. PCI Status: Elective Conclusions 1. 54-year-old male with history of atherosclerotic heart diseas and previous ME, status post previous PCI, presenting with increasing episodes of chest pain, shortness of breath and fatigue. Abnormal Myocardial perfusion imaging revealing areas of fixed defects with a small area of a reversible defect in the distribution of right coronary artery. In view of his ongoing symptoms, in order to further evaluate the coronary status, a cardiac catheterization was recommended. Patient underwent left heart catheterization with left and right coronary angiogram and LV angiogram today. The findings are as follows. 2. No severe left main disease. The left anterior descending artery was found to have 30 to 40% diffuse irregular narrowing in the proximal to mid segment. The circumflex artery has minimal luminal regularities. Right coronary artery was found to have around 50 to 60% diffuse proximal segment of narrowing. LV ejection fraction of 50%. 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 LVEDP of 22 mmHg.. 3. I reviewed and discussed the cardiac catheterization data with the Dr. Betts. It was thought to be appropriate to do an IFR of the proximal RCA lesion and then decide on further management. This was discussed with the patient which he understood and consented to proceed. The IFR was found to be in the normal range.. Diagnostic RX Recommendation: medical therapy and/or counseling LV EDP: 22 mmHg Ventriculography Ejection Fraction: 50.0 % Left Ventriculography Findings: * LV gram was performed the GOODMAN view. The LV cavity appeared to be of normal size. There was a small aneurysm at the basal inferior wall segment. No filling defects were noted. The overall ejection fraction was around 50%. The study was of suboptimal quality because of the poor LV filling. No severe mitral valve prolapse or mitral regurgitation. LVEDP of 22 mmHg.. Pressures Phase:Rest AO : 108 / 65 ( 79 ) @ 8:36:00 AM 106 / 86 ( 97 ) @ 8:47:00 AM 116 / 67 ( 90 ) @ 8:57:00 AM 121 / 76 ( 94 ) @ 8:57:00 AM 136 / 79 ( 102 ) @ 9:30:00 AM LV : 133 / 2 / 23 @ 8:56:00 AM 132 / 1 / 24 @ 8:57:00 AM 133 / 1 / 23 @ 8:57:00 AM Valves Phase:DefaultPhase AV : 16.0 @ 8:50:11 AM AV Mean Gradient: 9.0 @ 8:50:11 AM Clinical Evaluation EBL: 5mL-10mL Procedural Details Pre-Procedure Time Out. Identified patient by full name and date of as verbalized by the patient/guarantor. Does the consent match the physician's order: Yes. Accurate & Complete Informed Consent: Yes. Inpatient/Outpatient History & Physical on Chart: Yes. If H&P is completed, is and addenduem needed: No; If yes, is the addendum complete: N/A. Visualize and Verify Site with Patient/Guarantor: N/A. Relevant Radiology Images available: Yes. Pre-op teaching completed and patient verbalized understanding. The risks, benefits, and alternatives of sedation and/or procedure were discussed by physician. The patient agrees to continue. Procedure started. [facility] Clinical Fraility Score: 4: Vulnerable. [employer] Indications: Worsening Angina. Chest Pain Symptom Assessment: Typical Angina Symptoms. Current diagnosis: Chest Pain. PERRLA. Strong, equal hand warehouse handler bilaterally. Lungs clear x 5 lobes. IV Site on Arrival: 20 gauge in the right anticubital. IV Fluids: 0.9% NaCl at KVO. 0 mL infused prior to blood bank laboratory technician. Pre Procedural Pulses: bilateral dorsalis pedis was 2+. Pre Procedural Pulses: bilateral posterior tibial was 2+. Pre Procedural Pulses: bilateral radial was 2+. Oxygen started at 2liters/min via nasal canula. right groin was prepped with chloroprep then draped in the usual sterile fashion. right radial was prepped with chloroprep then draped in the usual sterile fashion. Physician arrived. Current Diagnosis : Chest Pain. Baseline sample Acquired. HR: 61 BPM. Physician scrubbed in. Immediate Pre-Procedure Time Out. Correct Patient: Yes; Correct Procedure: Yes; Correct Site: Yes; Correct Patient Position: Yes; Correct Supplies: Yes; Dried Flammable Prep: Yes; Blood Products Available: N/A;. Lidocaine 1% infiltrated to the right radial. Arterial access obtained. A 5 paraguayan Lupillo catheter in over wire. Catheter removed over the exchange wire. A 5 paraguayan TIG catheter in over wire. Multiple views taken of right coronary artery. Catheter redirected to the LCA. Multiple views taken of left coronary artery. Catheter removed over the exchange wire. A 5 paraguayan Angled Pig catheter in over wire. Dr. Betts called to review films. EDP Sample taken: LV 133/2,23; HR: 53 BPM; SpO2: 98%. LV gram performed in GOODMAN @ 10 mL/second for a total of 30 mL. EDP Sample taken: LV 132/1,24; HR: 56 BPM; SpO2: 98%. Pullback taken: LV 133/1,23; AO 116/67(90); Mean: 9mmHg, Peak to Peak: 16mmHg, SEP: 15sec/min; HR: 55 BPM; SpO2: 98%. Catheter removed over the exchange wire. Side port of sheath attached to heparnized saline flush at KVO to maintain patency. Physician scrubbed out. Physician review of cine films. Dr. Betts arrived. Dr. Betts scrubbed in to perform intervention. 6 paraguayan JR 4 guide catheter was inserted over the wire. ACT drawn. Results 156 seconds. Therapeutic limits - pre-heparin administration 90-150 seconds and monitoring heparin during a vascular procedure >250 seconds. IFR guidewire was advanced through the guide catheter to lesion in the prox RCA. IFR Results: 0.99. Wire out. Results checked. Guide catheter out. Vital chart was stopped. A TR Band was successful obtaining hemostatsis at the Right Radial artery insertion site. Post Procedure: Pulses reassessed and unchanged. PERRLA. Strong, equal hand warehouse handler bilaterally. No VTE prophylaxis required. Medication's Wasted: Other = Fentanyl 25 mcg. Total IV fluids: 325 mL. Post-op diagnosis: Non-obstructive CAD. Complications: None. Estimated blood loss: 5mL-10mL. Responsiveness - Normal response to verbal stimuli; alert and oriented, PERRLA. Airway - Unaffected, no intervention required; spontaneous ventilation. Circulation: W/N/L, pulses unchanged. Nausea/Vomiting: No. Procedure completed. Patient transferred by stretcher to CPRU. Access Site Site: Right Radial artery Sheath Size: 6 Fr Hemostasis Method: TR Band Hemostasis Success: Successful Procedure Medications Start: 7:19 AM Stop: 7:19 AM Medication: Versed Amount: 1 mg Route: I.V. Start: 7:19 AM Stop: 7:19 AM Medication: Fentanyl Amount: 50 mcg Route: I.V. Start: 7:21 AM Stop: 7:21 AM Medication: Benadryl Amount: 25 mg Route: I.V. Start: 7:28 AM Stop: 7:28 AM Medication: Versed 1 mg and Fentanyl 25 mcg Amount: 1 Route: I.V. Start: 7:32 AM Stop: 7:32 AM Medication: Nitrogylcerin Amount: 200 mcg Route: I.A. Start: 7:33 AM Stop: 7:33 AM Medication: Verapamil Amount: 5 mg Route: I.A. Start: 7:33 AM Stop: 7:33 AM Medication: 0.9% Saline Amount: 250 ml Route: I.V. bolus Start: 7:35 AM Stop: 7:35 AM Medication: Heparin Amount: 5000 units Route: I.V. Start: 7:57 AM Stop: 7:57 AM Medication: Fentanyl Amount: 25 mcg Route: I.V. Start: 8:13 AM Stop: 8:13 AM Medication: Versed 1 mg and Fentanyl 25 mcg Amount: 1 Route: I.V. Start: 8:22 AM Stop: 8:22 AM Medication: Fentanyl Amount: 25 mcg Route: I.V. Start: 8:33 AM Stop: 8:33 AM Medication: Heparin Amount: 7000 units Route: I.V. Start: 8:35 AM Stop: 8:35 AM Medication: Versed 1 mg and Fentanyl 25 mcg Amount: 1 Route: I.V. I, the attending physician, have reviewed and verified all procedure medications. Yes, all medications given per verbal order History/Risk Factors Hypertension: Yes Dyslipidemia: Yes Peripheral Arterial Disease (PAD): Yes Myocardial Infarction (ME): No Obesity: Yes Renal Disease: No Tobacco Use: Former Prior Interventions PCI: Yes CABG: No Valve Surgery: No Date of PCI: 09/03/2023 Report Signatures Finalized by Dr Mahendra Mendez MD [facility] on 03/02/2025 10:35 PM
[2025-03-02 06:50] LABS: Basophils % 0.4 %; Eosinophils # 0.2 10^3/uL (0.0-0.8); Eosinophils % 2.7 %; Hematocrit 45.8 % (37-53); Lymphocytes # 1.9 10^3/uL (0.8-4.8); Lymphocytes % 24.2 %; Mean Corpuscular Volume 90.9 fl (82-101); Mean Platelet Volume 9.9 fL (7.4-10.4); Monocytes # 0.7 10^3/uL (0.2-0.9); Monocytes % 9.7 %; Neutrophils # 4.75 10^3/uL (1.8-7.7); Nucleated Red Blood Cells % 0 %; Platelet Count 232 10^3/cmm (157-399); Red Blood Count 5.04 10^6/uL (3.85-5.65); Red Cell Distribution Width 13.2 % (12.1-15.1); White Blood Count 7.66 10^3/uL (3.29-11.43)
[2025-03-02 06:59] LABS: Anion Gap 14.4 (5-19); Blood Urea Nitrogen 18 mg/dL (6-20); Calcium 9.6 mg/dL (8.5-10.5); Carbon Dioxide 27 mmol/L (22-29); Chloride 101 mmol/L (98-107); Creatinine Clr Calc Pharmacy 163.1624; Glomerular Filtration Rate 101.5 mL/min (90-130); Glucose 107 mg/dL (65-115); Osmolality Calculated 288 mOsm/kg (285-295); Potassium 4.4 mmol/L (3.5-5.1); Sodium 138 mmol/L (136-145)
--- NOTE | 2025-03-02 07:11 | W.PM.OPSUD ---
Surgery/Procedure H&P Update DATE OF PROCEDURE: March 02, 2025 DATE H&P PERFORMED: 02/17/25 H&P UPDATE INFORMATION: I have reviewed H&P completed within last 30 days, I have examined patient prior to procedure and No changes to prior documentation PREOP DIAGNOSIS: ASHD PRIMARY INDICATION FOR PROCEDURE: Chest pain/shortness of breath/fatigue. Abnormal myocardial perfusion imaging, previous PCI in elbow 2022 PLANNED PROCEDURE: Operation Date: 03/02/25 07:00 Proposed Procedures p Cardiac Catheterization(Left) - Mahendra Mendez MD PATIENT REASSESSED PRIOR TO SEDATION, WITH NO CHANGE NOTED: Yes PHYSICAL EXAM: alert, oriented x 3, clear to auscultation bilaterally and regular rate & rhythm AIRWAY EVAL/ANESTHESIA PLAN: normal airway, see other exam findings, ASA III, Monitored Anesthesia, Local Anesthesia, Risks, benefits & alternatives of sedation and/or procedure discussed and Patient agrees to continue as planned
--- NOTE | 2025-03-02 08:47 | PM.OP ---
Operative Report Date of procedure: March 02, 2025 Surgeon: Mahendra Mendez MD Procedure: This patient underwent left heart catheterization with left and right coronary angiogram and LV angiogram today. He was found to have moderate disease in the proximal RCA. The left anterior descending artery was found to have 30 to 40% irregular narrowing proximally. Circumflex artery appeared to be a codominant vessel with no significant lesions. No significant stenosis in the left main artery. The LV gram revealed a small aneurysm at the basal inferior wall segment. LV ejection fraction was around 50%. The LVEDP was 22 mmHg In view of the abnormal Perfusion scan and the patient's ongoing symptoms, it was decided to do an IFR of the proximal RCA lesion. The IFR was found to be 0.9. Based on this, it was decided to treat the patient medically.
--- NOTE | 2025-03-02 10:17 | PC.NURSE ---
TRB Air Released 1ml air released from TRB at this time. No s/s of bleeding or hematoma noted. Will monitor. Call light in reach.
--- NOTE | 2025-03-02 11:20 | PC.NURSE ---
Bleeding under TRB Bleeding noted under TRB when last 2 ml of air attempted to be released. 15ml air reinserted into TRB, no bleeding noted. No hematoma. WIll monitor.
[2025-03-02] MEDS: HYDROcodone-acetaminophen 10-325 mg Tablet 1 TAB PO (13:03)
== END 2025-03-02 15:00 | disposition home or self-care (01) ==
PROVIDERS: Internal Medicine Cardiovascular Disease; PCP Nurse Practitioner Family; Visit Provider Internal Medicine Cardiovascular Disease
DX: I25.118 Atherosclerotic heart disease of native coronary artery with other forms of angina pectoris (principal); I25.2 Old myocardial infarction; I11.0 Hypertensive heart disease with heart failure; I50.30 Unspecified diastolic (congestive) heart failure; E78.5 Hyperlipidemia, unspecified; I73.9 Peripheral vascular disease, unspecified; E66.9 Obesity, unspecified; Z68.42 Body mass index [BMI] 45.0-49.9, adult; Z87.891 Personal history of nicotine dependence; Z79.82 Long term (current) use of aspirin; C84.A9 Cutaneous T-cell lymphoma, unspecified, extranodal and solid organ sites
CPT/HCPCS: 36415; 80048; 85025; 85347; 93458; 93571; 96374; 96375; 99152; 99153; C1769; C1887; C1894; J1200; J1644; J2250; J3010; J3490; J7030; J9999; Q9967

== ENCOUNTER → 2025-03-14 13:27 | Outpatient (BNVA) | payer MEDICARE, SELFPAY | PROVIDERS: PCP Nurse Practitioner Family; Visit Provider Nurse Practitioner Family | DX: Z09 Encounter for follow-up examination after completed treatment for conditions other than malignant neoplasm (principal); I25.10 Atherosclerotic heart disease of native coronary artery without angina pectoris; I11.0 Hypertensive heart disease with heart failure; I50.30 Unspecified diastolic (congestive) heart failure; E78.5 Hyperlipidemia, unspecified; Z79.02 Long term (current) use of antithrombotics/antiplatelets; Z79.82 Long term (current) use of aspirin; Z87.891 Personal history of nicotine dependence; I25.118 Atherosclerotic heart disease of native coronary artery with other forms of angina pectoris; E03.9 Hypothyroidism, unspecified; I10 Essential (primary) hypertension; R00.2 Palpitations | CPT/HCPCS: 99214 ==

== ENCOUNTER → 2025-03-29 09:48 | Outpatient (BNVA) | payer MEDICARE, SELFPAY | PROVIDERS: PCP Nurse Practitioner Family; Visit Provider Podiatrist Foot & Ankle Surgery | DX: I73.9 Peripheral vascular disease, unspecified (principal); L60.3 Nail dystrophy; M19.271 Secondary osteoarthritis, right ankle and foot; T85.848A Pain due to other internal prosthetic devices, implants and grafts, initial encounter; M79.672 Pain in left foot; L60.0 Ingrowing nail; Y79.2 Prosthetic and other implants, materials and accessory orthopedic devices associated with adverse incidents | CPT/HCPCS: 11721; 99213 ==

== ENCOUNTER → 2025-04-18 09:38 | Outpatient (BNVA) | payer MEDICARE, SELFPAY | PROVIDERS: PCP Nurse Practitioner Family; Visit Provider Nurse Practitioner Family | DX: I25.118 Atherosclerotic heart disease of native coronary artery with other forms of angina pectoris (principal); I11.0 Hypertensive heart disease with heart failure; I50.32 Chronic diastolic (congestive) heart failure; R06.02 Shortness of breath; R00.2 Palpitations; Z79.02 Long term (current) use of antithrombotics/antiplatelets; Z79.82 Long term (current) use of aspirin; Z87.891 Personal history of nicotine dependence | CPT/HCPCS: 99213 ==

== ENCOUNTER → 2025-05-10 14:31 | Outpatient (BNVA) | payer MEDICARE, SELFPAY | PROVIDERS: PCP Nurse Practitioner Family; Visit Provider Podiatrist Foot & Ankle Surgery | DX: E11.8 Type 2 diabetes mellitus with unspecified complications (principal); L60.3 Nail dystrophy; M19.271 Secondary osteoarthritis, right ankle and foot; I73.9 Peripheral vascular disease, unspecified | CPT/HCPCS: 11721; 99213 ==

== ENCOUNTER 2025-05-16 14:14 | Outpatient (CLI) | payer MEDICARE, SELFPAY ==
--- NOTE | 2025-05-16 14:15 | USCV_ITS ---
Stephen Byrnes Age: 55 Gender: M : 1970 Exam Date: 05/16/2025 14:40 Ordering Phys: Charity De Los Santos NP Technologist: SAUMYA Exam Location: [facility] Indication: Lethargy BP: 114 / 60 HR: 61 Rhythm: Sinus Technical Quality: Adequate MEASUREMENTS (Male / Female) Normal Values 2D ECHO LV Diastolic Diameter PLAX 5.1 cm 4.2 - 5.9 / 3.9 - 5.3 cm IVS Diastolic Thickness 1.5 cm 0.6 - 1.0 / 0.6 - 0.9 cm IVS Systolic Thickness 1.9 cm LVPW Diastolic Thickness 1.7 cm 0.6 - 1.0 / 0.6 - 0.9 cm LVPW Systolic Thickness 2.2 cm LVOT Diameter 2.0 cm LV Ejection Fraction 2D Teich 54.2 % LV Ejection Fraction MOD 4C 58.2 % LV Ejection Fraction MOD 2C 57.2 % LV Ejection Fraction 2C AL 59.0 % LA Diameter 4.6 cm RA Systolic Volume 4C AL 88.4 ml RA Systolic Volume 4C MOD 82.8 ml Aorta at Sinotubular Diameter 2.9 cm M-MODE LA Ao Ratio MM 1.5 AV Cusp Separation MM 1.9 cm DOPPLER AV Peak Velocity 146.0 cm/s LVOT Peak Velocity 130.0 cm/s AV Area Cont Eq vti 3.2 cm squared AV Area Cont Eq pk 2.9 cm squared MV Peak Velocity 69.0 cm/s MV Area PHT 3.9 cm squared Mitral E to A Ratio 1.4 TR Peak Velocity 85.0 cm/s TR Peak Gradient 2.9 mmHg TV Peak E Velocity 59.0 cm/s PV Peak Velocity 88.0 cm/s FINDINGS Left Ventricle Normal LV size and ejection fraction of 58%. Dyskinetic basal septal segment. Right Ventricle The right ventricle is normal in size and function. Right Atrium The right atrium is normal in size. Left Atrium The left atrium is normal in size. Mitral Valve Trace mitral valve regurgitation. Minimally thickened mitral valve Aortic Valve Thickened aortic valve. Tricuspid Valve No gross abnormalities noted Pulmonic Valve Pulmonic valve not well visualized. Pericardium Normal pericardium without effusion. Aorta Normal aortic annulus size. IVC Inferior vena cava not visualized. CONCLUSIONS Normal LV size and ejection fraction of 58%. Dyskinetic basal septal segment. Trace mitral valve regurgitation. Minimally thickened mitral valve. Thickened aortic valve. There is no pericardial effusion. There are no intracardiac masses. Compared to the study from 11/19/2023, the wall motion abnormality appears to be more prominent Dr Mahendra Mendez MD [facility] (Electronically Signed) Final Date: 18 May 2025 19:51 S
[2025-05-16 16:23] LABS: Cholesterol 236 mg/dL (0-200); Free T4 Free Thyroxine 1.16 ng/dL (0.82-1.77); HDL Cholesterol 29 mg/dL (60-100); Thyroid Stimulating Hormone 2.60 uIU/mL (0.27-4.20); Triglycerides 241 mg/dL (0-150)
== END 2025-05-16 14:15 | disposition home or self-care (01) ==
PROVIDERS: PCP Nurse Practitioner Family; Visit Provider Nurse Practitioner Family
DX: R06.02 Shortness of breath (principal); I25.10 Atherosclerotic heart disease of native coronary artery without angina pectoris; R53.83 Other fatigue; I50.32 Chronic diastolic (congestive) heart failure; Z09 Encounter for follow-up examination after completed treatment for conditions other than malignant neoplasm; I25.118 Atherosclerotic heart disease of native coronary artery with other forms of angina pectoris; E03.9 Hypothyroidism, unspecified; I34.0 Nonrheumatic mitral (valve) insufficiency; I35.8 Other nonrheumatic aortic valve disorders
CPT/HCPCS: 36415; 80061; 84439; 84443; 84481; 93306

== ENCOUNTER 2025-07-27 21:32 | Emergency (ER) | payer MEDICARE, SELFPAY ==
[2025-07-27 21:37] VITALS: BP 138/78; PULSE 64; RESP 18; TEMP 36.9; O2SAT 96; BMI 46.1
--- OUTSIDE RECORDS SUMMARY | 2025-07-27 21:38 | XMS_ITS | Patient Health Record ---
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 Name Role Phone Deanna Rodriguez APRN Primary Care Provider Unavaila David Valente Unavailable [phone] Migration, Provider Unavailable Unavailable Albertina Moscoso Unavailable Breanna Warren Unavailable [phone] Earline Hernández Unavailable [phone] Allergies Allergen (clinical drug ingredient) Drug/Non Drug Allergy documented on EMR Reaction Allergy Type Onset Date Status minocycline Minocycline dizzy, weakness Drug Allergy Active Results Component Value Reference Range Flag Notes Urine Drug Screen (cup read) - [id number] Reviewed date:03/23/2025 03:03:42 PM Interpretation: Performing Lab: Notes/Report: AMP - BRIANA - BUP - BZO - MDMA - OPI + PCP - OXY - MTD - MAMP - Urine Confirmation Panel (in strument) - [id number] Reviewed date:03/29/2025 02:42:04 PM Interpretation: Performing Lab: Notes/Report: 6-Acetylmorphine 0 <6 ng/mL N This zac t was developed and its performance characteristics determined by [facility]. It has not been cleared or approved by the U.S. Food and Drug Administration. 7-Aminoclonazepam 0 <60 ng/mL N This te st was developed and its performance characteristics determined by [facility]. It has not been cleared or approved by the U.S. Food and Drug Administration. Alprazolam 0 <60 ng/mL N This test was developed and its performance characteristics determined by [facility]. It has not been cleared or approved by the U.S. Food and Drug Administration. Amphetamine 0 <75 ng/mL N This test was developed and its performance characteristics determined by [facility]. It has not been cleared or approved by the U.S. Food and Drug Administration. aOH-Alprazolam 0 <60 ng/mL N This test was developed and its performance characteristics determined by [facility]. It has not been cleared or approved by the U.S. Food and Drug Administration. Buprenorphine 0.0 <7.5 ng/mL N This test w as developed and its performance characteristics determined by [facility]. It has not been cleared or approved by the U.S. Food and Drug Administration. Norbuprenorphine 0.0 <37.5 ng/mL N This te st was developed and its performance characteristics determined by [facility]. It has not been cleared or approved by the U.S. Food and Drug Administration. Carisoprodol 0 <75 ng/mL N This test wa s developed and its performance characteristics determined by [facility]. It has not been cleared or approved by the U.S. Food and Drug Administration. Codeine 0 <75 ng/mL N This test was developed and its performance characteristics determined by [facility]. It has not been cleared or approved by the U.S. Food and Drug Administration. EDDP 0 <75 ng/mL N This test was developed and its performance characteristics determined by [facility]. It has not been cleared or approved by the U.S. Food and Drug Administration. Fentanyl 0 <6 ng/mL N This test was developed and its performance characteristics determined by [facility]. It has not been cleared or approved by the U.S. Food and Drug Administration. Hydrocodone 1345 <75 ng/mL H This test was developed and its performance characteristics determined by [facility]. It has not been cleared or approved by the U.S. Food and Drug Administration. Hydromorphone 479 <75 ng/mL H This test w as developed and its performance characteristics determined by [facility]. It has not been cleared or approved by the U.S. Food and Drug Administration. Lorazepam 0 <60 ng/mL N This test was developed and its performance characteristics determined by [facility]. It has not been cleared or approved by the U.S. Food and Drug Administration. MDMA 0 <75 ng/mL N This test was developed and its performance characteristics determined by [facility]. It has not been cleared or approved by the U.S. Food and Drug Administration. Meperidine 0.0 <37.5 ng/mL N This test was developed and its performance characteristics determined by [facility]. It has not been cleared or approved by the U.S. Food and Drug Administration. Meprobamate 0 <75 ng/mL N This test was developed and its performance characteristics determined by [facility]. It has not been cleared or approved by the U.S. Food and Drug Administration. Methamphetamine 0 <75 ng/mL N This test was developed and its performance characteristics determined by [facility]. It has not been cleared or approved by the U.S. Food and Drug Administration. Methadone 0 <75 ng/mL N This test was developed and its performance characteristics determined by [facility]. It has not been cleared or approved by the U.S. Food and Drug Administration. Morphine 0 <75 ng/mL N This test was developed and its performance characteristics determined by [facility]. It has not been cleared or approved by the U.S. Food and Drug Administration. Nordiazepam 0 <60 ng/mL N This test was developed and its performance characteristics determined by [facility]. It has not been cleared or approved by the U.S. Food and Drug Administration. Norfentanyl 0 <6 ng/mL N This test was developed and its performance characteristics determined by [facility]. It has not been cleared or approved by the U.S. Food and Drug Administration. Normeperidine 0.0 <37.5 ng/mL N This test was developed and its performance characteristics determined by [facility]. It has not been cleared or approved by the U.S. Food and Drug Administration. O-desmethyltramadol 0 <75 ng/mL N This test was developed and its performance characteristics determined by [facility]. It has not been cleared or approved by the U.S. Food and Drug Administration. Oxazepam 0 <60 ng/mL N This test was developed and its performance characteristics determined by [facility]. It has not been cleared or approved by the U.S. Food and Drug Administration. Oxycodone 0.0 <37.5 ng/mL N This test was developed and its performance characteristics determined by [facility]. It has not been cleared or approved by the U.S. Food and Drug Administration. Oxymorphone 0 <75 ng/mL N This test was developed and its performance characteristics determined by [facility]. It has not been cleared or approved by the U.S. Food and Drug Administration. Phencyclidine 0.0 <7.5 ng/mL N This test w as developed and its performance characteristics determined by [facility]. It has not been cleared or approved by the U.S. Food and Drug Administration. Tapentadol 0.0 <37.5 ng/mL N This test was developed and its performance characteristics determined by [facility]. It has not been cleared or approved by the U.S. Food and Drug Administration. Temazepam 0 <60 ng/mL N This test was developed and its performance characteristics determined by [facility]. It has not been cleared or approved by the U.S. Food and Drug Administration. Tramadol 0 <75 ng/mL N This test was developed and its performance characteristics determined by [facility]. It has not been cleared or approved by the U.S. Food and Drug Administration. Norhydrocodone 2203 <75 ng/mL H This test was developed and its performance characteristics determined by [facility]. It has not been cleared or approved by the U.S. Food and Drug Administration. Noroxycodone 0 <38 ng/mL N This test wa s developed and its performance characteristics determined by [facility]. It has not been cleared or approved by the U.S. Food and Drug Administration. Pregabalin 0 <225 ng/mL N This test was developed and its performance characteristics determined by [facility]. It has not been cleared or approved by the U.S. Food and Drug Administration. Gabapentin 107 <225 ng/mL N This test was developed and its performance characteristics determined by [facility]. It has not been cleared or approved by the U.S. Food and Drug Administration. Benzoylecgonine 0.0 <37.5 ng/mL N This zac t was developed and its performance characteristics determined by [facility]. It has not been cleared or approved by the U.S. Food and Drug Administration. 4-Hydroxy Xylazine 0 <25 ng/mL N This t est was developed and its performance characteristics determined by [facility]. It has not been cleared or approved by the U.S. Food and Drug Administration. Tox Results Reviewed date:03/29/2025 02:53:42 PM Interpretation: Performing Lab: Notes/Report: Urine Drug Screen (cup read) - [id number] Reviewed date:07/20/2025 02:08:06 PM Interpretation: Performing Lab: Notes/Report: OPI + Tox Results Reviewed date:02/02/2025 03:31:04 PM Interpretation: Performing Lab: Notes/Report: Urine Drug Screen (cup read) - [id number] Reviewed date:01/26/2025 03:30:09 PM Interpretation:Negative all Performing Lab: Notes/Report: Negative all Urine Confirmation Panel (in strument) - [id number] Reviewed date:02/02/2025 02:50:47 PM Interpretation: Performing Lab: Notes/Report: 6-Acetylmorphine 0 <6 ng/mL N This zac t was developed and its performance characteristics determined by [facility]. It has not been cleared or approved by the U.S. Food and Drug Administration. 7-Aminoclonazepam 0 <60 ng/mL N This te st was developed and its performance characteristics determined by [facility]. It has not been cleared or approved by the U.S. Food and Drug Administration. Alprazolam 0 <60 ng/mL N This test was developed and its performance characteristics determined by [facility]. It has not been cleared or approved by the U.S. Food and Drug Administration. Amphetamine 0 <75 ng/mL N This test was developed and its performance characteristics determined by [facility]. It has not been cleared or approved by the U.S. Food and Drug Administration. aOH-Alprazolam 0 <60 ng/mL N This test was developed and its performance characteristics determined by [facility]. It has not been cleared or approved by the U.S. Food and Drug Administration. Buprenorphine 1.0 <7.5 ng/mL N This test w as developed and its performance characteristics determined by [facility]. It has not been cleared or approved by the U.S. Food and Drug Administration. Norbuprenorphine 0.0 <37.5 ng/mL N This te st was developed and its performance characteristics determined by [facility]. It has not been cleared or approved by the U.S. Food and Drug Administration. Carisoprodol 0 <75 ng/mL N This test wa s developed and its performance characteristics determined by [facility]. It has not been cleared or approved by the U.S. Food and Drug Administration. Codeine 0 <75 ng/mL N This test was developed and its performance characteristics determined by [facility]. It has not been cleared or approved by the U.S. Food and Drug Administration. EDDP 0 <75 ng/mL N This test was developed and its performance characteristics determined by [facility]. It has not been cleared or approved by the U.S. Food and Drug Administration. Fentanyl 0 <6 ng/mL N This test was developed and its performance characteristics determined by [facility]. It has not been cleared or approved by the U.S. Food and Drug Administration. Hydrocodone 106 <75 ng/mL H This test was developed and its performance characteristics determined by [facility]. It has not been cleared or approved by the U.S. Food and Drug Administration. Hydromorphone 335 <75 ng/mL H This test w as developed and its performance characteristics determined by [facility]. It has not been cleared or approved by the U.S. Food and Drug Administration. Lorazepam 0 <60 ng/mL N This test was developed and its performance characteristics determined by [facility]. It has not been cleared or approved by the U.S. Food and Drug Administration. MDMA 0 <75 ng/mL N This test was developed and its performance characteristics determined by [facility]. It has not been cleared or approved by the U.S. Food and Drug Administration. Meperidine 0.0 <37.5 ng/mL N This test was developed and its performance characteristics determined by [facility]. It has not been cleared or approved by the U.S. Food and Drug Administration. Meprobamate 0 <75 ng/mL N This test was developed and its performance characteristics determined by [facility]. It has not been cleared or approved by the U.S. Food and Drug Administration. Methamphetamine 0 <75 ng/mL N This test was developed and its performance characteristics determined by [facility]. It has not been cleared or approved by the U.S. Food and Drug Administration. Methadone 0 <75 ng/mL N This test was developed and its performance characteristics determined by [facility]. It has not been cleared or approved by the U.S. Food and Drug Administration. Morphine 0 <75 ng/mL N This test was developed and its performance characteristics determined by [facility]. It has not been cleared or approved by the U.S. Food and Drug Administration. Nordiazepam 0 <60 ng/mL N This test was developed and its performance characteristics determined by [facility]. It has not been cleared or approved by the U.S. Food and Drug Administration. Norfentanyl 0 <6 ng/mL N This test was developed and its performance characteristics determined by [facility]. It has not been cleared or approved by the U.S. Food and Drug Administration. Normeperidine 0.0 <37.5 ng/mL N This test was developed and its performance characteristics determined by [facility]. It has not been cleared or approved by the U.S. Food and Drug Administration. O-desmethyltramadol 0 <75 ng/mL N This test was developed and its performance characteristics determined by [facility]. It has not been cleared or approved by the U.S. Food and Drug Administration. Oxazepam 0 <60 ng/mL N This test was developed and its performance characteristics determined by [facility]. It has not been cleared or approved by the U.S. Food and Drug Administration. Oxycodone 0.0 <37.5 ng/mL N This test was developed and its performance characteristics determined by [facility]. It has not been cleared or approved by the U.S. Food and Drug Administration. Oxymorphone 0 <75 ng/mL N This test was developed and its performance characteristics determined by [facility]. It has not been cleared or approved by the U.S. Food and Drug Administration. Phencyclidine 0.0 <7.5 ng/mL N This test w as developed and its performance characteristics determined by [facility]. It has not been cleared or approved by the U.S. Food and Drug Administration. Tapentadol 0.0 <37.5 ng/mL N This test was developed and its performance characteristics determined by [facility]. It has not been cleared or approved by the U.S. Food and Drug Administration. Temazepam 0 <60 ng/mL N This test was developed and its performance characteristics determined by [facility]. It has not been cleared or approved by the U.S. Food and Drug Administration. Tramadol 0 <75 ng/mL N This test was developed and its performance characteristics determined by [facility]. It has not been cleared or approved by the U.S. Food and Drug Administration. Norhydrocodone 133 <75 ng/mL H This test was developed and its performance characteristics determined by [facility]. It has not been cleared or approved by the U.S. Food and Drug Administration. Noroxycodone 0 <38 ng/mL N This test wa s developed and its performance characteristics determined by [facility]. It has not been cleared or approved by the U.S. Food and Drug Administration. Pregabalin 0 <225 ng/mL N This test was developed and its performance characteristics determined by [facility]. It has not been cleared or approved by the U.S. Food and Drug Administration. Gabapentin 0 <225 ng/mL N This test was developed and its performance characteristics determined by [facility]. It has not been cleared or approved by the U.S. Food and Drug Administration. Benzoylecgonine 0.0 <37.5 ng/mL N This zac t was developed and its performance characteristics determined by [facility]. It has not been cleared or approved by the U.S. Food and Drug Administration. 4-Hydroxy Xylazine 0 <25 ng/mL N This t est was developed and its performance characteristics determined by [facility]. It has not been cleared or approved by the U.S. Food and Drug Administration. [employer] Drug Screen ([employer]viously [employer] by instrument) - [id number] Reviewed date:10/05/2024 01:56:11 PM Interpretation: Performing Lab: Notes/Report: Reason For Referral Reason B/L Carpel Tunnel Ev al and Treat Diagnosis 1 Chronic pain syndrom e (G89.4) Referral Organization [facility] Referring Provider First Name David Referring Provider Last Name Monserrat Referring Provider Speciality [facility] Referred Provider Hali Alex Referred Provider Specialty Orthopedic S urgery Referral Priority Routine Medications Medication SIG (Take, Route, Frequency, Duration) Notes Start Date End Date Status HYDROcodone-Acetam inophen 10-325 MG Tablet 1 tablet as needed Orally every 6 hrs; Duration: 30 days As needed Not to exceed 4 per day fill 07/27/2025 07/20/2025 08/26/2025 Active Repatha Active HYDROcodone-Acetam inophen 10-325 MG Tablet 1 tablet as needed Orally every 6 hrs; Duration: 30 days As needed Not to exceed 4 per day fill 08/26/2025 07/20/2025 09/25/2025 Active Vitamin D3 Active Aspirin 81 81 MG Tablet Delayed Release 1 tablet Orally Once a day Active Zepbound 2.5 MG/0.5ML Solution Auto-injector 0.5 mL Subcutaneous once a week Active Breztri Aerosphere 160 mcg-9mcg-4.8mcg/ac tuation HFA aerosol inhaler INHALE TWO PUFFS TWICE DAILY *Reorder from [facility] for eRx and Interaction Alerts* Active Atorvastatin Calcium 40 MG Tablet TAKE 1 TABLET BY MOUTH AT BEDTIME Oral Not-Taking Clopidogrel Bisulfate 75 MG Tablet TAKE 1 TABLET BY MOUTH EVERY DAY Oral Active celecoxib 200mg *Reorder from [facility] for eRx and Interaction Alerts* Not-Taking Furosemide 20 MG Tablet TAKE 1 TABLET BY MOUTH EVERY DAY Oral Active Cymbalta 30mg *Reorder from [facility] for eRx and Interaction Alerts* Not-Taking Jatenzo Active Ozempic 0.25 mg or 0.5 mg (2 mg/3 mL) subcutaneous pen injector INJECT 0.25MG every week *Reorder from [facility] for eRx and Interaction Alerts* Not-Taking Lisinopril 5 MG Tablet TAKE 1 TABLET BY MOUTH EVERY DAY Oral Active tramadol 50mg *Reorder from [facility] for eRx and Interaction Alerts* Not-Taking Meloxicam 15 MG Tablet TAKE 1 TABLET BY MOUTH EVERY DAY Oral Active Zonisamide *Pick strength-form from [facility] for eRX* Not-Taking Metoprolol Tartrate 25 MG Tablet TAKE ONE TABLET BY MOUTH TWICE DAILY Oral Active Potassium Chloride ER 8 MEQ Tablet Extended Release TAKE 1 TABLET BY MOUTH EVERY DAY Oral Active Social History Tobacco Use: Social History Observation Description Date Details (start date - stop date) Never Smoker NA - NA Social History Tobacco Use: Social Info Question Answer Notes Tobacco Control (Standard) Tobacco use: Nonsmoker Additional Details Category Social Info Options Details Drugs/Alcohol: Do you drink alcohol? No Migrated Social History Migrated Social History Alcoholic [...] if ever smoked, Working currently? - No Section Notes: Patient is on disability Patient is on disability Patient is on disability Patient is on disability Problems Problem Type SNOMED Code ICD Code Onset Dates Problem Status W/U Status Risk Notes Problem Morbid obesity (disorder) (838146821) Morbid (severe) obesity due to excess calories (E66.01) 04/02/20 Active confirmed Problem Chronic pain syndrome (915074081) Chronic pain syndrome (G89.4) 04/02/20 Active confirmed Problem Primary osteoarthritis (250444783) Unilateral primary osteoarthritis, right knee (M17.11) 04/02/20 Active confirmed Problem Osteoarthritis of knee (455022881) Unilateral primary osteoarthritis, left knee (M17.12) 04/02/20 Active confirmed Problem Degeneration of lumbar intervertebral disc (51258435) Other intervertebral disc degeneration, lumbar region (M51.36) 04/02/20 Active confirmed Problem Cervicalgia (01222779) Cervicalgia (M54.2) 04/02/20 Active confirmed Problem Abnormal gait (22388784) Unspecified abnormalities of gait and mobility (R26.9) 04/02/20 Active confirmed Problem Cervical radiculopathy (57038358) Cervical radiculopathy (M54.12) Active confirmed Problem Bilateral carpal tunnel syndrome (1496187361858371 1) Bilateral carpal tunnel syndrome (G56.03) Active confirmed Problem Paresthesia of upper extremity (53364741) Paresthesia of upper extremity (R20.2) Active confirmed Problem Degeneration of intervertebral disc of lumbar region with discogenic back pain (M51.360) Active confirmed Vital Signs Height-cm 187.96 cm 05/25/2025 Weight-kg 150.14 kg 07/20/2025 Height 74.00 in 05/25/2025 Weight 331 lbs 07/20/2025 BMI 42.75 kg/m2 05/25/2025 Encounters Encounter Location Date Provider Diagnosis [facility] [place] [address] [place] [address] 07/20/2025 David German Chronic pain syndrom e G89.4 ; Cervicalgia M54.2 ; Degeneration of intervertebral disc of lumbar region with discogenic back pain M51.360 ; Unilateral primary osteoarthritis, right knee M17.11 ; Unilateral primary osteoarthritis, left knee M17.12 ; Pain in right ankle and joints of right foot M25.571 ; Paresthesia of upper extremity R20.2 ; Unspecified abnormalities of gait and mobility R26.9 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 [facility] [address] [address] 07/29/2024 Breanna Warren [facility] [address] [address] 09/27/2024 Earline Hernández Chronic pain syndrom e G89.4 ; Cervicalgia M54.2 ; Degeneration of intervertebral disc of lumbar region with discogenic back pain M51.360 ; Unilateral primary osteoarthritis, right knee M17.11 ; Unilateral primary osteoarthritis, left knee M17.12 ; Pain in right ankle and joints of right foot M25.571 ; Unspecified abnormalities of gait and mobility R26.9 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 [facility] [address] [address] 11/17/2024 David German Chronic pain syndrom e G89.4 ; Cervicalgia M54.2 ; Degeneration of intervertebral disc of lumbar region with discogenic back pain M51.360 ; Unilateral primary osteoarthritis, right knee M17.11 ; Unilateral primary osteoarthritis, left knee M17.12 ; Pain in right ankle and joints of right foot M25.571 ; Paresthesia of upper extremity R20.2 ; Unspecified abnormalities of gait and mobility R26.9 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 [facility] [address] [address] 11/25/2024 Albertina Espinoza e Cervical radiculopathy M54.12 and Bilateral carpal tunnel syndrome G56.03 [facility] [address] [address] 01/26/2025 David German Chronic pain syndrom e G89.4 ; Cervicalgia M54.2 ; Degeneration of intervertebral disc of lumbar region with discogenic back pain M51.360 ; Unilateral primary osteoarthritis, right knee M17.11 ; Unilateral primary osteoarthritis, left knee M17.12 ; Pain in right ankle and joints of right foot M25.571 ; Paresthesia of upper extremity R20.2 ; Unspecified abnormalities of gait and mobility R26.9 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 [facility] [place] [address] [place] [id number] 03/23/2025 David German Chronic pain syndrom e G89.4 ; Cervicalgia M54.2 ; Degeneration of intervertebral disc of lumbar region with discogenic back pain M51.360 ; Unilateral primary osteoarthritis, right knee M17.11 ; Unilateral primary osteoarthritis, left knee M17.12 ; Pain in right ankle and joints of right foot M25.571 ; Paresthesia of upper extremity R20.2 ; Unspecified abnormalities of gait and mobility R26.9 and 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.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 [facility] [place] [address] [place] [address] 05/25/2025 David German Chronic pain syndrom e G89.4 ; Cervicalgia M54.2 ; Degeneration of intervertebral disc of lumbar region with discogenic back pain M51.360 ; Unilateral primary osteoarthritis, right knee M17.11 ; Unilateral primary osteoarthritis, left knee M17.12 ; Pain in right ankle and joints of right foot M25.571 ; Paresthesia of upper extremity R20.2 ; Unspecified abnormalities of gait and mobility R26.9 and 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 He unfortunately has been to the ER couple of times since his last visit due to chest pains. He states that he was diagnosed with pneumonia at one point but he really thought he was having a stroke. However, they did not find any signs of that. He continues to take the hydrocodone as it does provide some relief with his pain. He does continue to remain compliant with accurate pill counts and consistent drug screens so refills will be provided on his medication. He will follow-up with Dr. German in a couple of months for a biannual visit. 11/17/2024 Chronic pain syndrome (ICD-10 - G89.4) I had a nice visit with the patient today regarding his chronic pain issues. He's complaining of more numbness and tingling into his hands and he is interested in an EMG/Nerve conduction study to see the root cause of this. We will get this ordered with Dr. Farmer and we will continue his medications unchanged for now. We will plan to see him back in about 2 months to go over the results of that study and proceed accordingly. Order EMG/Nerve conduction study with Dr. Farmer The patient continues with chronic pain requiring treatment to help restore function and improve quality of life. Risks of opioid therapy as well as interaction of opioids with alcohol, illicit drugs, muscle relaxers, and other sedative medications are reviewed briefly with patient again today. The patient has trialed all other reasonable treatment options and uses the medication to alleviate pain in order to remain active and rest with less pain. No clinically relevant medication side effects are noted. 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 Patient is advised that best long-term goals include increased activity, core strengthening, proper weight management, coping strategies, avoidance of painful triggers, and targeted interventional therapy. We will see the patient for routine follow up in accordance with all clinic policies. We did remind patient today of current guidelines to decrease opioid when possible. We will continue to stress nonopioid treatment. 11/25/2024 Cervical radiculopathy (ICD-10 - M54.12) 11/25/2024 Bilateral carpal tunnel syndrome (ICD-10 - G56.03) 03/23/2025 Chronic pain syndrome (ICD-10 - G89.4) I had a long discussion with the patient today regarding his chronic pain issues. His visits tend to be similar from time to time, and he struggles to see anything of significance that he is able to change or has any control over that would result in a better outcome. He pointed out that he eats the same thing every day, and cannot figure out why he continues to maintain the same weight. Certainly, this all seems to make sense to me, but he cannot see how he is able to change much of anything. He does appear to be very unhappy in his current situation, but I'm not sure it's to the point to drive sufficient change. My recommendation is to control the things that he can control and change whatever he can. Hopefully, he will make some headway with regard to his morbid obesity and the sequela from that. For now, we will continue his medications unchanged and plan to see him back in about 2 months and proceed accordingly. RECOMMEND URINE TESTING TODAY Urine drug screening will be performed today to monitor compliance with opioid therapy or to serve as a baseline screen for a patient who may be a candidate for opioid therapy in the future, pending UDS results. We will monitor with in-office testing (rapid testing) today and review the results prior to dispensing prescription. All positive results will be sent for quantitative analysis to ensure accuracy and quantify amounts. Any expected positive results that return negative will also be sent for quantitative analysis. Any questionable read or any medication we cannot test for in the office confidently will be sent for quantitative analysis, as well. Patient has been made aware of this policy and agrees to abide by our urine testing policy. 09/27/2024 Cervicalgia (ICD-10 - M54.2) I had a nice discussion with patient today regarding his chronic pain complaints. He unfortunately has been to the ER couple of times since his last visit due to chest pains. He states that he was diagnosed with pneumonia at one point but he really thought he was having a stroke. However, they did not find any signs of that. He continues to take the hydrocodone as it does provide some relief with his pain. He does continue to remain compliant with accurate pill counts and consistent drug screens so refills will be provided on his medication. He will follow-up with Dr. German in a couple of months for a biannual visit. 05/25/2025 Chronic pain syndrome (ICD-10 - G89.4) I had a nice visit with the patient today regarding his chronic pain issues. I was pleased to see that he had lost 7 lbs since his last visit. Certainly, this is not a great deal, but this is a step in the right direction. He continues to struggle with his meals and overall caloric intake. He is looking into switching over to some type of meal plan that he can mail to his residence. We will see how this goes. For now, we will continue his medications unchanged. We plan to f/u in two months and proceed accordingly. 07/20/2025 Chronic pain syndrome (ICD-10 - G89.4) I had a nice visit with the patient today regarding his chronic pain issues. He has maintained the status quo. He did experience a recent fall, which set him back somewhat, but overall, he continues to be doing about the same. We will continue his current medication regimen unchanged. We will follow up in a couple of months and proceed accordingly. 01/26/2025 Chronic pain syndrome (ICD-10 - G89.4) I had a nice visit with the patient today regarding his chronic pain issues. We reviewed his EMG/nerve conduction study results which revealed severe carpal tunnel syndrome so I recommended referral to a surgeon. He was resistant to doing any surgeries soon due to horror stories he has heard but I recommended he at least go in for a discussion with a surgeon. He has an MRI of his brain coming up and a couple of stress tests. He is also trying to get weight loss medication but has been struggling with getting that approved. For now, we will continue his medications unchanged and see him back in a couple of months. Refer to Dr. 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 He unfortunately has been to the ER couple of times since his last visit due to chest pains. He states that he was diagnosed with pneumonia at one point but he really thought he was having a stroke. However, they did not find any signs of that. He continues to take the hydrocodone as it does provide some relief with his pain. He does continue to remain compliant with accurate pill counts and consistent drug screens so refills will be provided on his medication. He will follow-up with Dr. German in a couple of months for a biannual visit. 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 He unfortunately has been to the ER couple of times since his last visit due to chest pains. He states that he was diagnosed with pneumonia at one point but he really thought he was having a stroke. However, they did not find any signs of that. He continues to take the hydrocodone as it does provide some relief with his pain. He does continue to remain compliant with accurate pill counts and consistent drug screens so refills will be provided on his medication. He will follow-up with Dr. German in a couple of months for a biannual visit. 09/27/2024 Unilateral primary osteoarthritis, left knee (ICD-10 - M17.12) I had a nice discussion with patient today regarding his chronic pain complaints. He unfortunately has been to the ER couple of times since his last visit due to chest pains. He states that he was diagnosed with pneumonia at one point but he really thought he was having a stroke. However, they did not find any signs of that. He continues to take the hydrocodone as it does provide some relief with his pain. He does continue to remain compliant with accurate pill counts and consistent drug screens so refills will be provided on his medication. He will follow-up with Dr. German in a couple of months for a biannual visit. 11/17/2024 Unilateral primary osteoarthritis, left knee (ICD-10 - M17.12) 01/26/2025 Unilateral primary osteoarthritis, right knee (ICD-10 - M17.11) 07/20/2025 Unilateral primary osteoarthritis, right knee (ICD-10 - M17.11) 03/23/2025 Unilateral primary osteoarthritis, right knee (ICD-10 - M17.11) 05/25/2025 Unilateral primary osteoarthritis, right knee (ICD-10 - M17.11) 05/25/2025 Unilateral primary osteoarthritis, left knee (ICD-10 - M17.12) 03/23/2025 Unilateral primary osteoarthritis, left knee (ICD-10 - M17.12) 07/20/2025 Unilateral primary osteoarthritis, left knee (ICD-10 - M17.12) 01/26/2025 Unilateral primary osteoarthritis, left knee (ICD-10 - M17.12) 11/17/2024 Pain in right ankle and joints of right foot (ICD-10 - M25.571) 09/27/2024 Pain in right ankle and joints of right foot (ICD-10 - M25.571) I had a nice discussion with patient today regarding his chronic pain complaints. He unfortunately has been to the ER couple of times since his last visit due to chest pains. He states that he was diagnosed with pneumonia at one point but he really thought he was having a stroke. However, they did not find any signs of that. He continues to take the hydrocodone as it does provide some relief with his pain. He does continue to remain compliant with accurate pill counts and consistent drug screens so refills will be provided on his medication. He will follow-up with Dr. German in a couple of months for a biannual visit. 01/26/2025 Pain in right ankle and joints of right foot (ICD-10 - M25.571) 07/20/2025 Pain in right ankle and joints of right foot (ICD-10 - M25.571) 03/23/2025 Pain in right ankle and joints of right foot (ICD-10 - M25.571) 09/27/2024 Unspecified abnormalities of gait and mobility (ICD-10 - R26.9) I had a nice discussion with patient today regarding his chronic pain complaints. He unfortunately has been to the ER couple of times since his last visit due to chest pains. He states that he was diagnosed with pneumonia at one point but he really thought he was having a stroke. However, they did not find any signs of that. He continues to take the hydrocodone as it does provide some relief with his pain. He does continue to remain compliant with accurate pill counts and consistent drug screens so refills will be provided on his medication. He will follow-up with Dr. German in a couple of months for a biannual visit. 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 He unfortunately has been to the ER couple of times since his last visit due to chest pains. He states that he was diagnosed with pneumonia at one point but he really thought he was having a stroke. However, they did not find any signs of that. He continues to take the hydrocodone as it does provide some relief with his pain. He does continue to remain compliant with accurate pill counts and consistent drug screens so refills will be provided on his medication. He will follow-up with Dr. German in a couple of months for a biannual visit. 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 We will monitor with in-office testing (rapid testing) today and review the results prior to dispensing prescription. All positive results will be sent for quantitative analysis to ensure accuracy and quantify amounts. Any expected positive results that return negative will also be sent for quantitative analysis. Any questionable read or any medication we cannot test for in the office confidently will be sent for quantitative analysis, as well. Patient has been made aware of this policy and agrees to abide by our urine testing policy. 07/20/2025 Other Pattie Mosley, daphney scribing for Dr. David German. I, Dr. David German, personally performed the services described in this documentation, as scribed by Pattie Ac, and it is both accurate and complete. 11/17/2024 Other Austin Mosley am scribing for Dr. David German. I, Dr. David German, personally performed the services described in this documentatio n, as scribed by Austin Palm, and it is both accurate and complete. 01/26/2025 Other Austin Mosley am scribing for Dr. David German. Dimitri, Dr. David German, personally performed the services described in this documentation, as scribed by Austin Palm, and it is both accurate and complete. 03/23/2025 Other Renetta Mosley [facility], am scribing for Dr. David German. I, Dr. David German, personally performed the services described in this documentation, as scribed by BIN Sebastian, and it is both accurate and complete. 05/25/2025 Other I, Pattie Ac, am scribing for Dr. David German. I, Dr. Davdi German, personally performed the services described in this documentation, as scribed by Pattie Ac, and it is both accurate and complete. Plan Of Treatment Pending Test Test Name Order Date Urine Confirmation Panel (instrument) - 33598 07/20/2025 Next Appt Details Provider Name:David German, 09/21/2025 02:20:00 PM, [address] [place], [address], Insurance Providers Payer Name Payer Address Payer Phone Subscriber Number Group Number Insured Name Patient Relationship to Insured Coverage Start Date Coverage End Date [facility] Medicare Replacement [address] [place] [address] [id number] Stephen Byrnes Self - patient is the insured [employer] Medicare Advantage - PPO [address] [address] [place] [address] [id number] Stephen Byrnes Self - patient is the insured Medical (General) History Medical History History ICD Code Arthritis, Cancer, Depression, Thyroid disease, Headache, migraine Depression Cancer Arthritis Thyroid disease Swelling of multiple joints heart stents Surgical History Surgery Date(Month/Year) Arthroscopic Surgery cardiac angiogram 2022 [facility] Arthrodesis right foot surgery cardiac angiogram 02/2025
--- OUTSIDE RECORDS SUMMARY | 2025-07-27 21:38 | XMS_ITS | Continuity of Care Document ---
Author Organization [facility] Liu [facility] Albert App[place], [facility] ([facility]) Address [address] [place] [address] Care Team Providers Care Sanitary Inspector Name Role Phone SANDRA LIRA Primary Care Provider CALVIN Mary Referring Provider MICHAEL ELIZABETH Referring Provider Assessment No assessment recorded. Plan of Treatment Reminders Order Date Submit Date Provider Last Modified By Organization Details Last Modified Time Details Appointments LAB 2024 09:30A M LAB Not available Not available Not available Lab CBC - ordered by [facility] / will fax YF 2024 025 BRANDON Noe [facility], [address], [facility] [address], [place], [address], 07/27/2025 11:19:06 estradi ol, serum 2024 025 [facility], [address] [place], [address], 07/27/2025 10:25:48 testost erone, total, serum 2024 025 [employer] [facility], [address], [place], [address], 07/27/2025 10:25:49 Referral None recorde d. Procedures None recorde d. Surgeries None recorde d. Imaging None recorde d. Medication Orders None recorde d. Patient TargetsNo targets recorded. Patient InstructionsNo instructions recorded. Reason for Referral None Reported. 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 Active 2022 Not Available [facility] 3 14:55:33 Obstructiv e sleep apnea of adult 6144536378530 Active 2022 JEREMY diez [facility], [facility] 4 00:46:00 Chronic pain 51948526 Active 2022 JEREMY diez [facility], [facility] 4 00:45:48 Chronic obstructiv e pulmonary disease 22264445 Active 2022 JEREMY diez [facility], [facility] 4 00:45:34 Mixed hyperlipid emia 993522119 Active 2022 JEREMY diez [facility], [facility] 4 00:45:51 Prediabete s 365017877 Active 2023 JEREMY diez [facility], [facility] 4 00:46:39 Coronary arterioscl erosis 53108701 Active 2023 JEREMY diez [facility], [facility] 4 00:47:05 Morbid obesity 098423137 Active 2024 SANDRA LIRA, [facility] [address] [place], [address] , [facility], Jaret.L[facility] 5 22:21:06 Superficia l laceration 003926846 Active 2024 Ernst Rivas MD [address] [place], [address] , [facility], L.[facility] 5 14:44:32 Problem Notes None recorded. Procedures Surgical History Date Name Laterality Status Provider Name and Address Organization Details Recorded Time 5 MRI of brain completed [facility] 02/08/2025 00:14:40 5 jr skin tag removal completed JENNIFER GREGORY [address] [place], [address], [facility], [facility] 11/24/2024 15:41:47 4 plain X-ray of chest completed [facility] 09/22/2024 13:14:13 4 plain X-ray of chest completed [facility] 08/17/2024 17:47:[address] of head completed [facility] 08/17/2024 17:48:09 4 continuous positive airway pressure titration completed [facility] 02/11/2024 13:22:45 3 Colonoscopy completed AUDREY MERINO [facility] 02/16/2024 12:21:22 Knee Surgery completed [facility] 11/18/2023 11:28:30 Imaging Results None recorded. Procedure Notes None recorded. Medical Equipment None Reported. Allergies Allergen ID Allergen Name Allergen Category Reaction Reaction Severity Criticality Documentation Date Start Date Code Code System Note Provider Name and Address Organization Details Recorded Time 90364 minocycli ne medicatio n Not available Not available Not available 08/13/2023 6980 RxNorm TREBA NEUSCHWAN SHEBA null, [facility], [facility] 3 11:59:06 Medications Name Sig Start Date Stop Date Status Note LastModified by Organization Details LastModified Time amoxicill in 500 mg capsule take 1 capsule BY MOUTH THREE TIMES DAILY UNTIL GONE 08/03 completed Not Available Not Available Not Available furosemid e 40 mg tablet TAKE 1 TABLET BY MOUTH EVERY DAY AND TAKE AN EXTRA TABLET ONCE A WEEK active Not Available Not Available No t Available atorvasta tin 40 mg tablet TAKE 1 TABLET BY MOUTH AT BEDTIME 01/15 completed Not Available Not Available Not Available promethaz ine-DM 6.25 mg-15 mg/5 mL oral syrup take 5ml BY MOUTH EVERY 4 HOURS NEEDED 04/18 completed Not Available Not Available Not Available doxycycli ne hyclate 100 mg capsule take 1 capsule BY MOUTH TWICE DAILY for 10 days 04/18 completed Not Available Not Available Not Available albuterol sulfate 2.5 mg/3 mL (0.083 %) solution for nebulizat ion use 1 vial in nebulize r EVERY 6 HOURS NEEDED 03/25 completed Not Available Not Available Not Available benzonata te 200 mg capsule take 1 capsule BY MOUTH THREE TIMES DAILY NEEDED for 7 days 09/10 completed Not Available Not Available Not Available meloxicam 15 mg tablet TAKE 1 TABLET BY MOUTH EVERY DAY active Not Available Not Available No t Available prednison e 20 mg tablet TAKE 2 TABLETS BY MOUTH EVERY DAY FOR THREE DAYS 12/28 completed Not Available Not Available Not Available Zithromax Z-Jeyson 250 mg tablet TAKE 2 TABLETS (500 MG) BY ORAL ROUTE ONCE DAILY FOR 1 DAY THEN 1 TABLET (250 MG) BY ORAL ROUTE ONCE DAILY FOR 4 DAYS 12/07 completed Not Available Not Available Not Available clopidogr el 75 mg tablet TAKE 1 TABLET BY MOUTH EVERY DAY active Not Available Not Available No t Available sulfameth oxazole 800 mg-trimet hoprim 160 mg tablet TAKE 1 TABLET BY MOUTH TWICE DAILY for 7 days 04/07 completed Not Available Not Available Not Available hydrocodo ne 10 mg-acetam inophen 325 mg tablet TAKE 1 TABLET BY MOUTH EVERY 6 HOURS NEEDED FOR 30 DAYS max of FOUR PER day active Not Available Not Available No t Available aspirin 81 mg tablet,de layed release Take 1 tablet every day by oral route. active Not Available Not Available No t Available triamcino lone acetonide 0.1 % topical cream apply topicall y THREE TIMES DAILY 03/25 completed Not Available Not Available Not Available meloxicam 7.5 mg tablet take one tablet BY MOUTH EVERY DAY 03/25 completed Not Available Not Available Not Available betametha sone acetate and sodium phos 6 mg/mL suspensio n for injection Take 6 mg by injectio n route. 05/20 completed Not Available Not Available Not Available potassium chloride ER 8 mEq tablet,ex tended release TAKE 1 TABLET BY MOUTH EVERY DAY. TAKE AN EXTRA TABLET ONCE A WEEK active Not Available Not Available No t Available cephalexi n 500 mg capsule take 1 capsule BY MOUTH FOUR TIMES DAILY for 7 days 11/30 completed Not Available Not Available Not Available lisinopri l 10 mg tablet TAKE 1 TABLET BY MOUTH EVERY DAY active Not Available Not Available No t Available lisinopri l 5 mg tablet TAKE 2 TABLETS BY MOUTH EVERY DAY 01/15 completed Not Available Not Available Not Available mupirocin 2 % topical ointment APPLY TO SKIN TWICE DAILY FOR TWO WEEKS 12/07 completed Not Available Not Available Not Available furosemid e 20 mg tablet TAKE 2 TABLETS BY MOUTH EVERY DAY 09/22 completed Not Available Not Available Not Available diazepam 10 mg tablet TAKE 1 TABLET BY MOUTH one hour before procedur e active Not Available Not Available No t Available levofloxa opal 750 mg tablet 09/22 completed Not Available Not Available Not Available doxycycli ne hyclate 100 mg tablet TAKE 1 TABLET BY MOUTH TWICE DAILY for 10 days 05/20 completed Not Available Not Available Not Available diazepam 5 mg tablet TAKE 1 TABLET BY MOUTH one hour prior TO procedur e 03/11 completed Not Available Not Available Not Available amoxicill in 875 mg-potass ium clavulana te 125 mg tablet TAKE 1 TABLET BY MOUTH TWICE DAILY FOR cough for 7 days 12/28 completed Not Available Not Available Not Available metoprolo l tartrate 25 mg tablet TAKE ONE TABLET BY MOUTH TWICE DAILY active Not Available Not Available No t Available meloxicam daily 05/20 completed 9; Recorded 10/29/19 23 2:40PM by Jeremy Light CMT (i yumiko through Corbin Arce MD), Refill Request; Refill Quantity : 30; Tablet; Not Available Not Available Not Available Hydrocodo ne W/Acetami nophen four times daily 05/20 completed [facility]; Recorded 10/03/20 21 12:50PM by Corbin Arce MD, Refill Request; Refill Quantity : 0; Not Available Not Available Not Available Repatha SureClick 140 mg/mL subcutane ous pen injector INJECT 140MG SUBCUTAN EOUSLY EVERY TWO WEEKS active Not Available Not Available No t Available Ozempic 0.25 mg or 0.5 mg (2 mg/1.5 mL) subcutane ous pen injector Inject 0.25mg every week for 30 days 11/18 completed Not Available Not Available Not Available Jatenzo 198 mg capsule TAKE 2 CAPSULES BY MOUTH TWICE DAILY active Not Available Not Available No t Available Jatenzo 237 mg capsule take 2 capsule BY MOUTH TWICE DAILY 09/30 completed Not Available Not Available Not Available Breztri Aerospher e 160 mcg-9mcg- 4.8mcg/ac tuation HFA aerosol inhaler INHALE TWO PUFFS TWICE DAILY 11/18 completed Not Available Not Available Not Available Ozempic 1 mg/dose (4 mg/3 mL) subcutane ous pen injector inject 1mg SUBCUTAN EOUSLY every week 08/03 completed Not Available Not Available Not Available Wegovy 0.25 mg/0.5 mL subcutane ous pen injector Inject 0.25 mg every week by subcutan eous route for 30 days. 07/31 completed Not Available Not Available Not Available Paxlovid 300 mg (150 mg x 2)-100 mg tablets in a dose pack take all 3 morning tabs (yellow side) by mouth at the same time & all 3 evening tabs (blue side) at the same time for 5 days as directed 07/31 completed Not Available Not Available Not Available Ozempic 2 mg/dose (8 mg/3 mL) subcutane ous pen injector Inject by subcutan eous route for 28 days. 2024 active Not Available Not Available Not Avai lable Ozempic 0.25 mg or 0.5 mg (2 mg/3 mL) subcutane ous pen injector INJECT 0.5mg SUBCUTAN EOUSLY every week FOR 30 DAYS 04/20 completed Not Available Not Available Not Available Zepbound 2.5 mg/0.5 mL subcutane ous pen injector INJECT 2.5MG SUBCUTAN EOUSLY every week FOR sleep apnea 2024 active Not Available Not Available Not Avai lable Vitals None Recorded Social History Question Answer Notes LastModified by Organizat ion Details LastModified Time Tobacco Smoking Status [email or web address] 18:07:59 What Is Your Level Of Caffeine Consumption? Moderate [email or web address] Information not available 11/18/2023 What Was The Date Of Your Most Recent Tobacco Screening? 04/07/2025 [email or web address] Information not available 04/07/2025 What Is Your Relationship Status? Single [email or web address] Information not available 11/18/2023 Do You Have Difficulty Walking Or Climbing Stairs? Yes Uses A Cane [email or web address] Information not available 11/18/2023 Sex: Unknown Functional Status Question Answer Note LastModified by Organizat ion Details LastModified Time How many times per week do you consume alcohol? 1-2 times per week [email or web address] Information not available 03/25/2023 Do you use any illicit or recreational drugs? No [email or web address] Information not available 11/18/2023 What is your level of alcohol consumption? Moderate Information not available 03/25/2023 Are you able to walk independently without assistance or assistive devices? YESASSIST [email or web address] Information not available 12/28/2024 Are you able to care for yourself independently? Yes [email or web address] Information not available 11/18/2023 Mental Status None recorded. Family History Relationship Description Onset Age of this Age Resolved Age Notes LastModified by Organization Details LastModified Time Mother Essential hypertension [email or web address] Not available 16:19:17 Mother Hyperlipidem ia [email or web address] Not available 11/18 11:25:59 Maternal Grandfather Malignant neoplasm of colon [email or web address] Not available 07/31 16:19:44 Father Hyperlipidem ia [email or web address] Not available 11/18 11:25:59 Medical History Condition Response Anxiety Disorder Y Muscle, Joint, or Bone Problems Y Coronary Artery Disease Y Arthritis Y Blood Diseases Y Kidney Stones Y Cancer Y High Cholesterol Y Heart Disease Y Hypertension Y Osteoporosis Y Immunizations Vaccine Type Date Status Note Provider Nam e and Address Organization Details Recorded Time Influenza, split virus, trivalent, preservative 5 completed Not Available [facility] 07/02/2023 14:55:34 Tdap 5 completed [facility] [place] 04/08/2025 09:53:11 Past Encounters Encounter ID Performer Location Encounter Start Date Encounter Closed Date Diagnosis/Indication Diagnosis SNOMED-CT Code Diagnosis ICD10 Code Diagnosis IMO Codes Diagnosis Note [id number] JENNIFER GREGORY [facility] ([facility]) [address] [place] [address] 07/27/2025 10:22:02 07/27/2025 10:26:55 Male hypogonadism 60022810 E29.1 [id number] Health Concerns Section Related Observation LastModified by Organization Detai ls LastModified Time None Recorded Concern Status LastModified by Organization Details LastModified Time None Recorded Payers Encounter Date Sequence Insurance Name Policy Number Policy Head Covered Member ID Head Member ID Guarantor Name 07/27/2025 1 [id number] - PPO) [id number] Stephen Byrnes [id number] Stephen Byrnes
--- OUTSIDE RECORDS SUMMARY | 2025-07-27 21:38 | XMS_ITS | Data Portability ---
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 He would like to pay for it once and not see a bill. He recently had a angiogram and some MRI testing done. Not available 05/20/2025 13:56:30 Plan of Treatment Reminders Order Date Submit Date Provider Last Modified By Organization Details Last Modified Time Details Appointments LAB 2024 09:30A M LAB Not available Not available Not available Lab CBC - ordered by [facility] / will fax YF 2024 025 [facility], [address], [address], [place], [address], 07/27/2025 11:19:06 estradi ol, serum 2024 025 [facility], [address], [address] [place], [address], 07/27/2025 10:25:48 testost erone, total, serum 2024 025 [facility], [address] [facility], [place], [address], 07/27/2025 10:25:49 hemoglo bin A1C/hem oglobin total, QN, blood 2024 025 [facility], [address], [address], [place], [address], 03/24/2025 10:20:32 CMP, serum or plasma 2024 025 [facility], [address], [address], [place], [address], 03/24/2025 10:43:45 thyrotr opin, QN, serum or plasma 2024 025 [facility], [address], [address], [place], [address], 03/24/2025 10:54:54 estradi ol, serum 2024 025 [facility] [place], [address] [place] [address] [address], [address], [place], [address], 03/22/2025 09:03:15 CBC - ALL LABS ORDERED BY [facility] / WILL FAX YF 2024 025 [facility], [address], [address], [place], [address], 03/21/2025 10:37:58 PSA, serum or plasma 2024 025 [facility], [address] [place] [address] [address], [address], [place], [address], 03/22/2025 09:03:16 testost erone, total, serum 2024 025 [facility] [place], [address] [place] [address] [address], [address], [place], [address], 03/22/2025 09:03:14 Referral None recorde d. Procedures None recorde d. Surgeries None recorde d. Imaging None recorde d. Medication Orders None recorde d. Patient TargetsNo targets recorded. Patient Instructions Encounter Date Encounter Id Patient Instructions Last Modified By Organization Details Last Modified Time 05/20/2025 [id number] Call or return for questions or concerns. Not available 05/20/2025 13:52:40 Reason for Referral None Reported. Results Created Date Observation Date Name Description Value Unit Range Abnormal Flag Note LastModifiedBy Organization Detail LastModifiedTime 03/21/2003/21/2025 CBC WBC 7.6 x10 4.5-10 .5 Not Available [facility] [address] [facility] [address], [place], [address], 03/21/2025 10:37:58 03/21/2003/21/2025 CBC RBC 4.89 x10 4.30-5 .90 Not Available [facility] [address] [facility] [address], [place], [address], 03/21/2025 10:37:58 03/21/2003/21/2025 CBC HGB 15.0 g/dL 13.5-1 8.0 Not Available [facility] [address] [facility] [address], [place], [address], 03/21/2025 10:37:58 03/21/2003/21/2025 CBC HCT 45.2 % 35.0-6 0.0 Not Available [facility] [address] [facility] 1, [place], [address], 03/21/2025 10:37:58 03/21/2003/21/2025 CBC MCV 92.4 fL 80.0-9 9.9 Not Available [facility] [address] [facility], [place], [address], 03/21/2025 10:37:58 03/21/202025 CBC MCH 30.6 pg 27.0-3 2.0 Not Available [facility] [address] [facility] 1, [place], [address], 03/21/2025 10:37:58 03/21/2003/21/2025 CBC MCHC 33.1 g/dL 32.0-3 6.0 Not Available [facility] [address] [facility] 1, [place], [address], 03/21/2025 10:37:58 03/21/20 25 03/21/2025 CBC RDW 13.5 % 11.5-1 4.5 Not Available [facility] [address] [facility], [place], [address], 03/21/2025 10:37:58 03/21/2003/21/2025 CBC plt 211.5 x10 150.0- 451.0 Not Available [facility] [address] [facility], [place], [address], 03/21/2025 10:37:58 03/21/2003/21/2025 CBC lymphocytes % 22.3 % 20.0-5 0.0 Not Available [facility] [address] [facility], [place], [address], 03/21/2025 10:37:58 03/21/2003/21/2025 CBC granulcytes % 66.9 % 30.0-7 0.0 Not Available [facility] [address] [facility], [place], [address], 03/21/2025 10:37:58 03/21/2003/21/2025 CBC monocytes % 8.9 % 2.0-16 .0 Not Available [facility] [address] [facility], [place], [address], 03/21/2025 10:37:58 03/21/20 25 03/21/2025 CBC granulcytes# 5.1 x10 Not Arelis ilable [facility] [address] [address], [place], [address], 03/21/2025 10:37:58 03/21/20 25 03/21/2025 CBC lymphocytes # 1.7 x10 Not Available [facility] [address] [facility] [address], [place], [address], 03/21/2025 10:37:58 03/21/20 25 03/21/2025 CBC monocytes # 0.7 x10 Not Avai lable [facility] [address] [address], [place], [address], 03/21/2025 10:37:58 03/21/20 25 03/22/2025 TESTO STERO NE, TOTAL , MALES (ADUL T), IA testosterone , total, males (adult), ia 298 NG/dL 250-82 7 normal Not Available [facility] [address] [place], [address], 03/22/2025 09:03:13 03/21/2003/22/2025 ESTRA DIOL estradiol 27 pg/mL < or = 39 normal Refer ence range estab lishe d on post- puber jeni patie nt popul ation . No pre-p ubert al refer ence range estab lishe d using this assay . For any patie nts for whom low Estra diol level s are antic ipate d (e.g. males , pre-p ubert al child cris and hypog onada l/pos t-men opaus al femal es), the [facility] Matt [facility] Insti tute Estra diol, Ultra sensi tive, LCMSM S assay is recom elo d (orde r code 13568 ). Pleas e note: patie nts being treat ed with the drug fulve stran t (Fasl odex( R)) have demon strat ed signi fican t inter feren ce in immun oassa y metho ds for estra diol measu remen t. The cross react ivity could lead to false ly eleva jenniffer estra diol test resul ts leadi ng to an inapp ropri ate clini daniel asses sment of estro gen statu s. [facility] order code [id number] -Estr adiol , Ultra sensi tive LC/MS /MS demon strat es negli gible cross react ivity with fulve stran t. Not Available [facility] [address] [place], [address], 03/22/2025 09:03:15 03/21/2003/22/2025 PSA, TOTAL PSA, total 1.31 NG/mL < or = 4.00 normal The total PSA value from this assay syste m is stand ardiz ed again st the WHO stand derrell. The test resul t will be appro ximat jude 20% lower when berto red to the equim olar- stand ardiz ed total PSA (Bustamante man Coult er). Berto rison of seria l PSA resul ts shoul d be inter prete d with this fact in mind. This test was perfo rmed using the [employer] chemi lumin escen t metho d. Value s obtai xin from diffe rent assay metho ds canno t be used inter santiago eably . PSA level s, regar dless of value , shoul d not be inter prete d as absol akiak evide nce of the prese nce or absen ce of disea se. Not Available [facility] [address] [place], [address], 03/22/2025 09:03:16 03/24/2003/24/2025 HBA1C hemaglobin A1C 5.6 4.2-6. 5 normal Not Available [facility] [address] [facility] [address], [place], [address], 03/24/2025 10:20:32 03/24/20 25 03/24/2025 CMP (MALE ) glucose 101.0 mg/dL 60.0-9 9.0 high Not Available [facility] [address] [facility], [place], [address], 03/24/2025 10:43:45 03/24/20 25 03/24/2025 CMP (MALE ) BUN (blood urea nitrogen) 18.0 mg/dL 10.0-2 6.0 Not Available [facility] [address] [facility], [place], [address], 03/24/2025 10:43:45 03/24/20 25 03/24/2025 CMP (MALE ) creatinine (serum) 0.8 mg/dL 0.4-1. 5 Not Available [facility] [address] [address], [place], [address], 03/24/2025 10:43:45 03/24/20 25 03/24/2025 CMP (MALE ) BUN/creatini ne ratio 22.50 ratio Not Available [facility] [address] [address], [place], [address], 03/24/2025 10:43:45 03/24/20 25 03/24/2025 CMP (MALE ) eGFR calculated 107.9 Not Available [facility] [address] [address], [place], [address], 03/24/2025 10:43:45 03/24/20 25 03/24/2025 CMP (MALE ) total protein 7.5 g/dL 6.0-8. 5 Not Available [facility] [address] [facility] [address] [address], [place], [address], 03/24/2025 10:43:45 03/24/20 25 03/24/2025 CMP (MALE ) total bilirubin 0.7 mg/dL 0.2-1. 3 Not Available [facility] [address] [place], [address], 03/24/2025 10:43:45 03/24/20 25 03/24/2025 CMP (MALE ) albumin 4.4 g/dL 3.5-5. 5 Not Available [facility] [address] [facility] 1, [place], [address], 03/24/2025 10:43:45 03/24/20 25 03/24/2025 CMP (MALE ) globulin 3.1 calc Not Available [facility] [address] [facility] 1, [place], [address], 03/24/2025 10:43:45 03/24/20 25 03/24/2025 CMP (MALE ) AST (SGOT) 45.0 U/L 0.0-46 .0 Not Available [facility] [address] [facility] 1, [place], [address], 03/24/2025 10:43:45 03/24/20 25 03/24/2025 CMP (MALE ) altv (SGPT) 45.0 U/L 13.0-6 9.0 normal Not Available [facility] [address] [facility] 1, [place], [address], 03/24/2025 10:43:45 03/24/20 25 03/24/2025 CMP (MALE ) A/G ratio 1.4 ratio Not Available [facility] [address] [facility] 1, [place], [address], 03/24/2025 10:43:45 03/24/20 25 03/24/2025 CMP (MALE ) ALP phos 59.0 U/L 30.0-1 40.0 normal Not Available [facility] [address] [facility] 1, [place], [address], 03/24/2025 10:43:45 03/24/20 25 03/24/2025 CMP (MALE ) calcium 9.3 mg/dL 8.4-10 .5 Not Available [facility] [address] [facility] [address], [place], [address], 03/24/2025 10:43:45 03/24/20 25 03/24/2025 CMP (MALE ) sodium 138.0 mmol/ L 136.0- 145.0 Not Available [facility] [address] [facility] [address], [place], [address], 03/24/2025 10:43:45 03/24/20 25 03/24/2025 CMP (MALE ) potassium 4.5 mmol/ L 3.5-5. 1 Not Available [facility] [address] [facility] [address], [place], [address], 03/24/2025 10:43:45 03/24/20 25 03/24/2025 CMP (MALE ) chloride 104.0 mmol/ L 98.0-1 10.0 normal Not Available [facility] [address] [facility] 1, [place], [address], 03/24/2025 10:43:45 03/24/20 25 03/24/2025 CMP (MALE ) C02 28.0 mmol/ L 22.0-3 1.0 Not Available [facility] [address] [facility] [address], [place], [address], 03/24/2025 10:43:45 03/24/20 25 03/24/2025 CMP (MALE ) anion gap 6.0 calc Not Available [facility] [address] [facility] [address], [place], [address], 03/24/2025 10:43:45 03/24/20 25 03/24/2025 CMP (MALE ) osmolality 287.1 calc Not Available [facility] [address] [facility] [address], [place], [address], 03/24/2025 10:43:45 03/24/20 25 03/24/2025 TSH TSH 2.97 uIU/m L 0.49-3 .82 Not Available [facility] [address] [facility] [address], [place], [address], 03/24/2025 10:54:54 04/01/20 25 04/02/2025 CORTI ALEXY, A.M. cortisol, A.M. 15.3 mcg/d L normal Refer ence Range 8 a.m. (7-9 a.m.) Speci men: 4.0-2 2.0 Not Available [facility] [address] , [place], [address], 04/02/2025 07:23:01 Result Notes None recorded. Problems Name Problem SNOMED Code Status Onset Date Resolution Date Notes Provider Name and Address Organization Details Recorded Time Pain of left hip joint 7091748218505 00 Active 2021 JEREMY diez [facility] 4 00:46:29 Osteoarthr itis of multiple joints 031740459 Active 2021 JEREMY diez [facility] 4 00:46:14 Primary cutaneous T-cell lymphoma 240125931 Active 2022 Not Available [facility] 3 14:55:33 Obstructiv e sleep apnea of adult 2542976583557 Active 2022 JEREMY diez [facility] 4 00:46:00 Chronic pain 20445874 Active 2022 JEREMY diez [facility] 4 00:45:48 Chronic obstructiv e pulmonary disease 35362416 Active 2022 JEREMY diez [facility] 4 00:45:34 Mixed hyperlipid emia 935097265 Active 2022 JEREMY diez [facility] 4 00:45:51 Prediabete s 729031449 [facility] 00:46:39 Coronary arterioscl erosis 43912159 Active 2023 JEREMY diez [facility] 4 00:47:05 Morbid obesity 728304852 Active 2024 SANDRA LIRA [address], [address] , [facility] 5 22:21:06 Superficia l laceration 135360332 Active 2024 Ernst Rivas MD [address] [place], [address] , [facility] 5 14:44:32 Problem Notes None recorded. Procedures Surgical History Date Name Laterality Status Provider Name and Address Organization Details Recorded Time 5 MRI of brain completed JEREMY HODGES [facility] 02/08/2025 00:14:40 5 jr skin tag removal completed SANDRA LIRA [facility] [address] [place], [address], [facility] 11/24/2024 15:41:47 4 plain X-ray of chest completed JEREMY TRACIE [facility] 09/22/2024 13:14:13 4 plain X-ray of chest completed JEREMY HODGES [facility] 08/17/2024 17:47:[address] of head completed [facility] 08/17/2024 17:48:09 4 continuous positive airway pressure titration completed [facility] 02/11/2024 13:22:45 3 Colonoscopy completed AUDREY WILBER [facility] 02/16/2024 12:21:22 Knee Surgery completed [facility] 11/18/2023 11:28:30 Imaging Results None recorded. Procedure Notes None recorded. Medical Equipment None Reported. Allergies Allergen ID Allergen Name Allergen Category Reaction Reaction Severity Criticality Documentation Date Start Date Code Code System Note Provider Name and Address Organization Details Recorded Time 99238 minocycli ne medicatio n Not available Not available Not available 08/13/2023 6980 RxNorm MEREDITH Chacko [facility] 3 11:59:06 Medications Name Sig Start Date [...] 9; Recorded 10/29/19 23 2:40PM by Jeremy Hodges CMT (i [email or web address] through Corbin Arce MD), Refill Request; Refill Quantity : 30; Tablet; Not Available Not Available Not Available Hydrocodo ne W/Acetami nophen four times daily 05/20 completed [facility]; Recorded 10/03/20 21 12:50PM by [...] Available Not Available Not Avai lable Vitals Date Recorded Body height Body mass index (BMI) Body weight Oxygen saturation Oxygen saturation in Arterial blood by Pulse oximetry Heart rate Body temperature Systolic And Diastolic Provider Name and Address Organization Details Last Updated DateTime 5 182.88 cm 46.1 kg/m2 920064. 41 g 96 % 96 % 98 /min 98.6 [degF] 120/80 mm[Hg] [facility] 5 14:38:57 Date Recorded Body height Body mass index (BMI) Body weight Oxygen saturation Oxygen saturation in Arterial blood by Pulse oximetry Heart rate Respiratory rate Systolic And Diastolic Provider Name and Address Organization Details Last Updated DateTime 5 182.88 cm 45.4 kg/m2 784852. 44 g 96 % 96 % 70 /min 20 /min 130/78 mm[Hg] JEREMY HODGES [facility] 13:18:07 Social History Question Answer Notes LastModified by Organizat RF Code Details LastModified Time Tobacco Smoking Status Former Smoker JEREMY HODGES [facility] 03/25/2023 18:07:59 What Is Your Level Of Caffeine Consumption? Moderate [email or web address] Information not available 11/18/2023 What Was The Date Of Your Most Recent Tobacco Screening? 04/07/2025 [email or web address] Information not available 04/07/2025 What Is Your Relationship Status? Single [email or web address] Information not available 11/18/2023 Do You Have Difficulty Walking Or Climbing Stairs? Yes Uses A Cane [email or web address] Information not available 11/18/2023 Sex: Unknown Functional Status Question Answer Note LastModified by [employer] Details LastModified Time How many times per week do you consume alcohol? 1-2 times per week [email or web address] Information not available 03/25/2023 Do you use any illicit or recreational drugs? No [email or web address] Information not available 11/18/2023 What is your level of alcohol consumption? Moderate [email or web address] Information not available 03/25/2023 Are you able to walk independently without assistance or assistive devices? YESASSIST [email or web address] Information not available 12/28/2024 Are you able to care for yourself independently? Yes [email or web address] Information not available 11/18/2023 Mental Status None recorded. Family History Relationship Description Onset Age of this Age Resolved Age Notes LastModified by Organization Details LastModified Time Mother Essential hypertension [email or web address] Not available 16:19:17 Mother Hyperlipidem ia [email or web address] Not available 11/18 11:25:59 Maternal Grandfather Malignant neoplasm of colon [email or web address] Not available 07/31 16:19:44 Father Hyperlipidem ia [email or web address] Not available 11/18 11:25:59 Medical History Condition Response Anxiety Disorder Y Coronary Artery Disease Y Muscle, Joint, or Bone Problems Y Arthritis Y Kidney Stones Y Blood Diseases Y High Cholesterol Y Heart Disease Y Cancer Y Hypertension Y Osteoporosis Y Immunizations Vaccine Type Date Status Note Provider Augusto jefferson and Address Organization Details Recorded Time Influenza, split virus, trivalent, preservative 5 completed Not Available [facility] 07/02/2023 14:55:34 Tdap 5 completed [facility] 04/08/2025 09:53:11 Past Encounters Encounter ID Performer Location Encounter Start Date Encounter Closed Date Diagnosis/Indication Diagnosis SNOMED-CT Code Diagnosis ICD10 Code Diagnosis IMO Codes Diagnosis Note JENNIFER GREGORY [facility] ([facility]) [address] [place] [address] [id number] 03/25/2023 17:15:37 04/07/2023 09:57:33 Obstructive sleep apnea of adult 6294393460 103 G47.33 Acute bronchitis 6980965 2 J20.9 Primary cu taneous T-cell lymphoma 025263854 C84.A8 Follows with Kecia. Morbid obesity 670941018 E66.01 Z68.42 Discussed diet and exercise. Mixed hyperlipidemia 267 529884 E78.2 Serum thyr oid stimulating hormone level outside reference range 425321120 R89.1 Chronic pain 62489809 G8 9.29 F11.90 Follows with pain management . Depressive disorder 3548 9007 F32.A Waxes and wanes. Chronic ob structive pulmonary disease 62446477 J44.9 Doing well, not currently on medication . Worsening following COVID. [id number] JENNIFER GREGORY [facility] ([facility]) [address] [place] [address] [id number] 5 05/20/2023 14:05:56 05/20/2023 16:03:01 Adult health examination 845959407 Z00.00 Screening for malignant neoplasm of colon 007839407 Z12.11 Colonoscop y consult to be scheduled with Dr. Seth, last 10/2022. Obstructiv e sleep apnea of adult 0130271105 103 G47.33 Wears CPAP nightly. Chronic ob structive pulmonary disease 00380317 J44.9 Recent exposure to amonia gas. Osteoarthr itis of multiple joints 324136828 M15.3 Chronic pain, follows with Dr. German. Obesity 984283841 E66.9 Wegocatracho has been sent in. He is in physical therapy/aq uatics therapy. Primary cu taneous T-cell lymphoma 127117142 C84.18 Follows with Kecia. Intermitte nt palpitations 641731538 R00.2 [id number] JENNIFER GREGORY [facility] ([facility]) [address] [place] [address] [id number] 5 07/31/2023 14:50:27 07/31/2023 17:13:40 Chronic bronchitis 39600954 J42 COVID infection in May. [id number] Sundeep Seth MD [facility] ([facility]) [address] [place] [address] [id number] 08/13/2023 11:17:17 08/13/2023 14:47:29 Screening for malignant neoplasm of colon 437273603 Z12.11 Pt is scheduled for a colonoscop y on 09/12/23, pt has been given prep instructio ns and advised [facility] will contact him of arrival time prior to procedure [id number] JENNIFER GREGORY [facility] ([facility]) [address] [place] [address] [id number] 5 09/10/2023 12:58:37 09/25/2023 08:50:28 Spinal stenosis 55811614 M48.00 Coronary arteriosclerosis 14126975 I25.10 Recent stent placement, symptoms improved. [id number] JENNIFER GREGORY [facility] ([facility]) [address] [place] [address] [id number] 09/23/2023 14:59:04 09/23/2023 16:38:12 Coronary atherosclerosis 070259055 I25.10 [id number] JENNIFER GREGORY [facility] ([facility]) [address] [place] [address] [id number] 5 11/18/2023 14:34:42 11/18/2023 19:26:36 Tight chest 37725817 R07.89 Awaiting results from ECHO tomorrow, [facility]. Edema of l ower extremity 646034442 R60.0 He missed a few doses of Lasix because he was out of meds. 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 Chronic pain 61329136 G8 9.29 F11.90 Follows with pain management . Obstructiv e sleep apnea of adult 8043146055 103 G47.33 Wears CPAP nightly. Body mass index 40+ - severely obese 694861789 Z68.42 Diet and exercise. Mixed hyperlipidemia 267 994015 E78.2 Does not tolerate statins. [id number] SANDRA LIRA RATE ANALYST [facility] ([facility]) [address] [place] [address] [id number] 5 12/11/2023 14:45:24 12/11/2023 15:47:14 Hypertensive heart disease with congestive heart failure 3910215 I11.0 Most recent appt with cardiology was a week ago. [id number] JENNIFER GREGORY [facility] ([facility]) [address] [place] [address] [id number] 5 01/16/2024 12:03:10 01/16/2024 13:22:35 Adult health examination 532769610 Z00.00 Prediabetes 475146574 R7 3.03 Obstructiv e sleep apnea of adult 3695821943 103 G47.33 Wears CPAP nightly. Hyperlipidemia 21325561 E78.5 Currently on Praluent. Edema of l ower extremity 703877804 R60.0 Advised him to wear compressio n stockings to help with leg swelling. Fatigue 52491775 R53.83 Screening for malignant neoplasm of colon 423893534 Z12.11 Colonoscop y consult to be scheduled with Dr. Seth, last 10/2022. [id number] Sundeep Seth MD [facility] ([facility]) [address] [place] [address] [id number] 02/16/2024 11:59:55 02/16/2024 13:56:30 Screening for malignant neoplasm of colon 874836275 Z12.11 [id number] [facility]DO [facility] [address] [place] [address] [id number] 5 03/03/2024 14:06:49 03/03/2024 14:33:54 Community acquired pneumonia 458699267 J18.9 Discussed use of prescripti ons.Pt given rxn for nebulizer machine. He has albuterol neb soln he can use.F/u with PCP next week or sooner if symptoms worsen. 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 Osteoarthr itis of multiple joints [id number] M15.3 Chronic pain, follows with Dr. German. [id number] SANDRA LIR[facility] [place] ([facility]) [address] [place] [address] [phone] 05/26/2024 09:55:36 05/27/2024 12:19:01 Male hypogonadism [id number] E29.1 [id number] SANDRA LIR[facility] [place] ([facility]) [address] [place] [address] [phone] 08/23/2024 10:15:08 08/24/2024 11:03:41 Male hypogonadism [id number] E29.1 [id number] Sundeep Seth MD [facility] ([facility]) [address] [place] [address] [phone] 5 09/28/2024 15:17:38 09/28/2024 16:22:14 Screening for malignant neoplasm of colon [id number] Z12.11 [id number] SANDRA LIR[facility] [place] ([facility]) [address] [place] [address] 5 09/22/2024 13:00:15 09/22/2024 14:08:34 Obstructive sleep apnea of adult [id number] 103 G47.33 Wears CPAP nightly. [id number] SANDRA LIRA [facility] [place] ([facility]) [address] [place] [address] [phone] 5 11/23/2024 10:04:11 11/24/2024 12:14:42 Male hypogonadism 81136180 E29.1 [id number] [facility] [address] [place] [address] [phone] 5 11/24/2024 15:03:25 11/24/2024 16:00:36 Skin tag [id number] L91.8 Cryocauter y to 1 skin tag. [id number] SANDRA LIR[facility] [place] ([facility]) [address] [place] [address] [phone] 11/30/2024 11:49:35 11/30/2024 13:15:24 Acute sinusitis 52830900 J01.90 [id number] [facility] [address] [place] [address] [phone] 12/28/2024 14:18:33 12/28/2024 15:45:05 Adult health examination [id number] Z00.00 Obstructiv e sleep apnea syndrome 43187769 G47.33 He does not tolerate CPAP. He was diagnosed in 2001. He feels worse following the usage of the CPAP because it blows too much the wrong way. May be improved if he would shave his lux but he doesn't want to do that at this time. Floaters i n visual field [id number] H43.399 Increasing . Recently got new glasses. Aphasia 88704873 R47.01 He feels like his thought process and focus is way off and at times he has trouble getting his thoughts out. Migraine. CT was good in August. Primary cu taneous T-cell lymphoma 825617668 C84.18 C84.A0 Follows with Kecia. Morbid obesity 808089143 E66.01 Z68.42 Discussed diet and exercise. Previously was on Ozempic with good results. Prediabete s, insurance will no longer cover. Chronic ob structive pulmonary disease 95531922 J44.9 Recent URI. Mixed hyperlipidemia 267 320558 E78.2 G72.0 Does not tolerate statins. Repatha every 2 weeks. Chronic pain 71869723 G8 9.29 F11.90 Follows with pain management . Chronic low back pain 27 7342865 M54.50 Follows with pain management . Chronic pr imary musculoskeletal limb pain [id number] 7102 M79.609 R26.9 Z91.81 Z74.1 Right leg, surgery in 2009. Uses cane for ambulation . Hypertensi ve heart disease with congestive heart failure 2322016 I11.0 Most recent appt with cardiology was a week ago. [id number] SANDRA LIRA RATE ANALYST [facility] ([facility]) [address] [place] [address] [phone] 03/21/2025 10:06:03 03/22/2025 11:13:25 Male hypogonadism 53857938 E29.1 [id number] SANDRA LIRA RATE ANALYST [facility]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
--- OUTSIDE RECORDS SUMMARY | 2025-07-27 21:38 | XMS_ITS | Clinical Summary ---
Author Organization [facility] Address [address] [place] [address] Phone Care Team Providers Care Camp Assistant Name Role Phone Unavailable Primary Care Provider Unavailabl e Medications HYDROcodone-acet aminophen (ZAMICET) 10-325 mg/15 mL(15 mL) Solution solution every 4 hours as needed for Pain, Mild. Active meloxicam (MOBIC) 15 mg tablet Take 15 mg by mouth daily. 11/12/2022 Active Active Problems No known active problems Social History Tobacco Use Types Packs/Day Years Used Date Smoking Tobacco: Former Cigarettes Tobacco Cessation:Counseling Given: Not Answered Sex and Gender Information Value Date Recorded Sex Assigned at Not on file Legal Sex Male 7:40 AM [employer] Gender Identity Not on file Sexual Orientation Not on file Last Filed Vital Signs Vital Sign Reading Time Taken Comments Blood Pressure 138/89 01/31/2023 1:14 PM CDT Pulse 86 11/20/2022 2:03 PM [employer] Temperature - - Respiratory Rate - - Oxygen Saturation - - Inhaled Oxygen Concentration - - Weight 166.5 kg (367 lb) 01/31/2023 1:14 PM CDT Height 188 cm (6' 2 ) 01/31/2023 1:14 PM CDT Body Mass Index 47.12 01/31/2023 1:14 PM CDT Plan of Treatment Health Maintenance Due Date Last Done Comments DTAP/TDAP/TD VACCINES (1 - Tdap) 1991 HEPATITIS B VACCINES (1 of 3 - 19+ 3-dose series) 03/14 COLORECTAL SCREENING 2017 Colorectal Cancer Screening 2017 FIT-DNA Q 3 years 2017 FIT/FOBT Q 1 year 2017 Flex Sig/CT Colonography Q 5 years 2017 ZOSTER VACCINE (1 of 2) 2022 INFLUENZA VACCINE (#1) 2025 Insurance [facility] [id number]
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
[2025-07-27 23:23] VITALS: BP 110/70; PULSE 71; O2SAT 91
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
[2025-07-28] MEDS: orphenadrine 30 mg/mL Inj 2 mL 60 MG IM (00:11)
[2025-07-28 00:38] VITALS: BP 116/76; PULSE 66; O2SAT 91
== END 2025-07-28 00:40 | disposition home or self-care (01) ==
PROVIDERS: Emergency Provider Physician Assistant; PCP Nurse Practitioner Family
DX: S90.01XA Contusion of right ankle, initial encounter (principal); S80.01XA Contusion of right knee, initial encounter; S40.011A Contusion of right shoulder, initial encounter; Z79.02 Long term (current) use of antithrombotics/antiplatelets; Z79.82 Long term (current) use of aspirin; I25.10 Atherosclerotic heart disease of native coronary artery without angina pectoris; I11.0 Hypertensive heart disease with heart failure; I50.30 Unspecified diastolic (congestive) heart failure; V86.55XA Driver of 3- or 4- wheeled all-terrain vehicle (ATV) injured in nontraffic accident, initial encounter
CPT/HCPCS: 73560; 73610; 96372; 99284; J1885; J2360

== ENCOUNTER → 2025-08-09 14:24 | Outpatient (BNVA) | payer MEDICARE, SELFPAY | PROVIDERS: PCP Nurse Practitioner Family; Visit Provider Podiatrist Foot & Ankle Surgery | DX: I73.9 Peripheral vascular disease, unspecified (principal); L60.3 Nail dystrophy; S99.911A Unspecified injury of right ankle, initial encounter; M19.271 Secondary osteoarthritis, right ankle and foot; W01.0XXA Fall on same level from slipping, tripping and stumbling without subsequent striking against object, initial encounter | CPT/HCPCS: 11721; 99213 ==

== ENCOUNTER → 2025-09-13 09:24 | Outpatient (BNVA) | payer MEDICARE, SELFPAY | PROVIDERS: PCP Nurse Practitioner Family; Visit Provider Nurse Practitioner Family | DX: I25.10 Atherosclerotic heart disease of native coronary artery without angina pectoris (principal); I73.9 Peripheral vascular disease, unspecified; I11.0 Hypertensive heart disease with heart failure; I50.30 Unspecified diastolic (congestive) heart failure; G47.33 Obstructive sleep apnea (adult) (pediatric); E78.5 Hyperlipidemia, unspecified; Z87.891 Personal history of nicotine dependence | CPT/HCPCS: 99214 ==

== ENCOUNTER 2025-09-24 02:24 | Emergency (ER) | payer MEDICARE, SELFPAY ==
--- OUTSIDE RECORDS SUMMARY | 2024-08-07 03:00 | XMS_ITS ---
Author Organization [facility] Address [address] [place] [id number] Care Team Providers Care Permit Agent Name Role Phone Ese Rodriguez APRNn Primary Care Provider Unavaila David Valente Unavailable [phone] Migration, Provider Unavailable Unavailable REASON FOR VISIT EMR-French Encounters Encounter Location Date Provider Diagnosis Migrated_Facility 0 0 08/07/2024 Provider Migration Plan Of Treatment Medication Medication Name Sig Start Date Stop Date Notes HYDROcodone-Acetaminop hen 10-325 MG Oral Tablet 1 Tablet Every 6 Hours PRN 05/01/2024 05/31/2024 *Reorder from [facility] for eRx and Interaction Alerts* Next Appt Details Provider Name:David German, 11/23/2025 02:40:00 PM, [address] [place], [address], Progress Notes * Stephen BYRNES CDOB:[birth year] (55 yo M)Acc No.[id number]:08/07/2024 Patient: Stephen ECKERT Joya :1970 A ge:54 Y S ex:Male Address:[address] [place] [address], [id number] * Refills Stop HYDROcodone-Acetaminophen 10-325 MG Oral Tablet, 1 Tablet Every 6 Hours PRN Stop HYDROcodone-Acetaminophen 10-325 MG Oral Tablet, 1 Tablet Every 6 Hours PRN Subjective: * Chief Complaints: * E MR-French * * Date:
--- OUTSIDE RECORDS SUMMARY | 2024-08-08 03:00 | XMS_ITS ---
Author Organization [facility] Address [address] [place] [address] Care Team Providers Care Convention Services Director Name Role Phone Deanna Rodriguez APRN Primary Care Provider Unavaila David Valente Unavailable [phone] Migration, Provider Unavailable Unavailable Allergies Allergen (clinical drug ingredient) Drug/Non Drug Allergy documented on EMR Reaction Allergy Type Onset Date Status minocycline Minocycline dizzy, weakness Drug Allergy Active REASON FOR VISIT EMR-French Medications Medication SIG (Take, Route, Frequency, Duration) Notes Start Date End Date Status Meloxicam 15 MG Tablet TAKE 1 TABLET BY MOUTH EVERY DAY Oral Active Breztri Aerosphere 160 mcg-9mcg-4.8mcg/actuati on HFA aerosol inhaler INHALE TWO PUFFS TWICE DAILY *Reorder from [facility] for eRx and Interaction Alerts* Active Atorvastatin Calcium 40 MG Tablet TAKE 1 TABLET BY MOUTH AT BEDTIME Oral Active cyclobenzaprine 10mg *Reorder fr [facility] for eRx and Interaction Alerts* Active tramadol 50mg *Reorder from [facility] for eRx and Interaction Alerts* Active Metoprolol Tartrate 25 MG Tablet TAKE ONE TABLET BY MOUTH TWICE DAILY Oral Active Furosemide 20 MG Tablet TAKE 1 TABLET BY MOUTH EVERY DAY Oral Active Cymbalta 30mg *Reorder from [facility] for eRx and Interaction Alerts* Active celecoxib 200mg *Reorder from [facility] for eRx and Interaction Alerts* Active Ozempic 0.25 mg or 0.5 mg (2 mg/3 mL) subcutaneous pen injector INJECT 0.25MG every week *Reorder from [facility] for eRx and Interaction Alerts* Active Lisinopril 5 MG Tablet TAKE 1 TABLET BY MOUTH EVERY DAY Oral Active Clopidogrel Bisulfate 75 MG Tablet TAKE 1 TABLET BY MOUTH EVERY DAY Oral Active Zonisamide *Pick strength-form from [facility] for eRX* Active Potassium Chloride ER 8 MEQ Tablet Extended Release TAKE 1 TABLET BY MOUTH EVERY DAY Oral Active Social History Social History Additional Details Category Social Info Options Details Migrated Social History Migrated Social History Alcoholic beverages? - No, Currently on disability? - Yes, Drug or substance abuse? - No, Involved in any legal proceedings or lawsuits? - No, Marital Status - single, Nonprescription drug use? - No, Participation in detoxification or rehabilitation - No, Smoked in the past? - No, Smoking - No, Smoking status (MU) - Unknown if ever smoked, Working currently? - No Encounters Encounter Location Date Provider Diagnosis Migrated_Facility 0 0 08/08/2024 Provider Migration Plan Of Treatment Next Appt Details Provider Name:David German, 11/23/2025 02:40:00 PM, [address] [place], [address], Progress Notes * Stephen BYRNES CDOB:[birth year] (55 yo M)Acc No.[id number]:08/08/2024 Patient: Beka ECKERTaniya Hinson :1970 A ge:54 Y S ex:Male Address:[address] [place] [address], [place], [address] Subjective: * Chief Complaints: * E MR-French * Medical History: Arthritis, C ancer, D epression, T hyroid disease, * Surgical History: Arthroscopic Surgery cardiac angiogram Club Foot-Triple Arthrodesis right foot surgery * Family History: M igrated Family History: : Cancer, C hronic pain, H eart disease, S troke. * Social History: M igrated Social History: M igrated Social History: Alcoholic beverages? - No, C urrently on disability? - Yes, D rug or substance abuse? - No, I nvolved in any legal proceedings or lawsuits? - No, M arital Status - single, N onprescription drug use? - No, P articipation in detoxification or rehabilitation - No, S moked in the past? - No, S moking - No, S moking status (MU) - Unknown if ever smoked, W orking currently? - No. * Medications: T akingCymbalta 30mg , Notes to Pharmacist: *Reorder from [facility] for eRx and Interaction Alerts*Atorvastatin Calcium 40 MG Tablet TAKE 1 TABLET BY MOUTH AT BEDTIME Oral Furosemide 20 MG Tablet TAKE 1 TABLET BY MOUTH EVERY DAY Oral cyclobenzaprine 10mg , Notes to Pharmacist: *Reorder from [facility] for eRx and Interaction Alerts*Zonisamide , Notes to Pharmacist: *Pick strength-form from [facility] for eRX*Clopidogrel Bisulfate 75 MG Tablet TAKE 1 TABLET BY MOUTH EVERY DAY Oral tramadol 50mg , Notes to Pharmacist: *Reorder from [facility] for eRx and Interaction Alerts*celecoxib 200mg , Notes to Pharmacist: *Reorder from [facility] for eRx and Interaction Alerts*Breztri Aerosphere 160 mcg-9mcg-4.8mcg/actuation HFA aerosol inhaler INHALE TWO PUFFS TWICE DAILY , Notes to Pharmacist: *Reorder from [facility] for eRx and Interaction Alerts*Meloxicam 15 MG Tablet TAKE 1 TABLET BY MOUTH EVERY DAY Oral Potassium Chloride ER 8 MEQ Tablet Extended Release TAKE 1 TABLET BY MOUTH EVERY DAY Oral Metoprolol Tartrate 25 MG Tablet TAKE ONE TABLET BY MOUTH TWICE DAILY Oral Ozempic 0.25 mg or 0.5 mg (2 mg/3 mL) subcutaneous pen injector INJECT 0.25MG every week , Notes to Pharmacist: *Reorder from [facility] for eRx and Interaction Alerts*Lisinopril 5 MG Tablet TAKE 1 TABLET BY MOUTH EVERY DAY Oral Taking Cymbalta 30mg , Notes to Pharmacist: *Reorder from [facility] for eRx and Interaction Alerts*Taking Atorvastatin Calcium 40 MG Tablet TAKE 1 TABLET BY MOUTH AT BEDTIME Oral Taking Furosemide 20 MG Tablet TAKE 1 TABLET BY MOUTH EVERY DAY Oral Taking cyclobenzaprine 10mg , Notes to Pharmacist: *Reorder from [facility] for eRx and Interaction Alerts*Taking Zonisamide , Notes to Pharmacist: *Pick strength-form from [facility] for eRX*Taking Clopidogrel Bisulfate 75 MG Tablet TAKE 1 TABLET BY MOUTH EVERY DAY Oral Taking tramadol 50mg , Notes to Pharmacist: *Reorder from [facility] for eRx and Interaction Alerts*Taking celecoxib 200mg , Notes to Pharmacist: *Reorder from [facility] for eRx and Interaction Alerts*Taking Breztri Aerosphere 160 mcg-9mcg-4.8mcg/actuation HFA aerosol inhaler INHALE TWO PUFFS TWICE DAILY , Notes to Pharmacist: *Reorder from [facility] for eRx and Interaction Alerts*Taking Meloxicam 15 MG Tablet TAKE 1 TABLET BY MOUTH EVERY DAY Oral Taking Potassium Chloride ER 8 MEQ Tablet Extended Release TAKE 1 TABLET BY MOUTH EVERY DAY Oral Taking Metoprolol Tartrate 25 MG Tablet TAKE ONE TABLET BY MOUTH TWICE DAILY Oral Taking Ozempic 0.25 mg or 0.5 mg (2 mg/3 mL) subcutaneous pen injector INJECT 0.25MG every week , Notes to Pharmacist: *Reorder from [facility] for eRx and Interaction Alerts*Taking Lisinopril 5 MG Tablet TAKE 1 TABLET BY MOUTH EVERY DAY Oral * Allergies: M inocycline: dizzy, weakness - Allergy * * Date:
--- OUTSIDE RECORDS SUMMARY | 2025-09-21 08:20 | XMS_ITS ---
Author Organization [facility] Address [address] [place] [address] Care Team Providers Care Senior Technical Trainer Name Role Phone Deanna Rodriguez APRN Primary Care Provider Regine GaticamaruDavid menendez Unavailable [phone] REASON FOR VISIT 2 month f/u Medications Medication SIG (Take, Route, Frequency, Duration) Notes Start Date End Date Status Clopidogrel Bisulfate 75 MG Tablet TAKE 1 TABLET BY MOUTH EVERY DAY Oral Active HYDROcodone-Acetam inophen 10-325 MG Tablet 1 tablet as needed Orally every 6 hrs; Duration: 30 days As needed Not to exceed 4 per day fill 09/25/2025 09/21/2025 10/25/2025 Active Aspirin 81 81 MG Tablet Delayed Release 1 tablet Orally Once a day Active Breztri Aerosphere 160 mcg-9mcg-4.8mcg/ac tuation HFA aerosol inhaler INHALE TWO PUFFS TWICE DAILY *Reorder from [facility] for eRx and Interaction Alerts* Active Zonisamide *Pick strength-form from [facility] for eRX* Not-Taking Ozempic 0.25 mg or 0.5 mg (2 mg/3 mL) subcutaneous pen injector INJECT 0.25MG every week *Reorder from [facility] for eRx and Interaction Alerts* Not-Taking tramadol 50mg *Reorder from [facility] for eRx and Interaction Alerts* Not-Taking celecoxib 200mg *Reorder from [facility] for eRx and Interaction Alerts* Not-Taking Cymbalta 30mg *Reorder from [facility] for eRx and Interaction Alerts* Not-Taking Atorvastatin Calcium 40 MG Tablet TAKE 1 TABLET BY MOUTH AT BEDTIME Oral Not-Taking HYDROcodone-Acetam inophen 10-325 MG Tablet 1 tablet as needed Orally every 6 hrs; Duration: 30 days As needed Not to exceed 4 per day fill 10/25/2025 09/21/2025 11/24/2025 Active Repatha Active Potassium Chloride ER 8 MEQ Tablet Extended Release TAKE 1 TABLET BY MOUTH EVERY DAY Oral Active Vitamin D3 Active Zepbound 2.5 MG/0.5ML Solution Auto-injector 0.5 mL Subcutaneous once a week Active Furosemide 20 MG Tablet TAKE 1 TABLET BY MOUTH EVERY DAY Oral Active Metoprolol Tartrate 25 MG Tablet TAKE ONE TABLET BY MOUTH TWICE DAILY Oral Active Meloxicam 15 MG Tablet TAKE 1 TABLET BY MOUTH EVERY DAY Oral Active Jatenzo Active Lisinopril 5 MG Tablet TAKE 1 [...] No Section Notes: Patient is on disability Problems Problem Type SNOMED Code ICD Code Onset Dates Problem Status W/U Status Risk Notes Problem Osteoarthritis of knee (001436877) Bilateral primary osteoarthritis of knee (M17.0) Active confirmed Vital Signs Height 74.00 in 09/21/2025 Weight 330 lbs 09/21/2025 BMI 42.36 kg/m2 09/21/2025 Height-cm 187.96 cm 09/21/2025 Weight-kg 149.69 kg 09/21/2025 Encounters Encounter Location Date Provider Diagnosis [facility] [address] [place] [address] 09/21/2025 David German Chronic pain syndrom e G89.4 ; Cervicalgia M54.2 ; Degeneration of intervertebral disc of lumbar region with discogenic back pain M51.360 ; Pain in right ankle and joints of right foot M25.571 ; Paresthesia of upper extremity R20.2 ; Unspecified abnormalities of gait and mobility R26.9 ; Bilateral primary osteoarthritis of knee M17.0 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 Unfortunately, he has had a rough time since he rolled the golf cart, pinning himself. He is awaiting updated imaging of his shoulder and knee. It sounds like he has imaging of his hip pending, and he has been struggling with the pain. He also reports dental issues and some sinus pain. He presents in the clinic not looking too well as a result of these events. He continues to find the current medication regimen somewhat effective overall. His UDS and pill counts have been consistent with his current treatment regimen. We will continue his medications unchanged. We will follow up in a couple of months and proceed accordingly. 09/21/2025 Cervicalgia (ICD-10 - M54.2) 09/21/2025 Degeneration of intervertebral disc of lumbar region with discogenic back pain (ICD-10 - M51.360) 09/21/2025 Pain in right ankle and joints of right foot (ICD-10 - M25.571) 09/21/2025 Paresthesia of upper extremity (ICD-10 - R20.2) 09/21/2025 Unspecified abnormalities of gait and mobility (ICD-10 - R26.9) 09/21/2025 Bilateral primary osteoarthritis of knee (ICD-10 - M17.0) 09/21/2025 care home (current) use of opiate analgesic (ICD-10 - Z79.891) 09/21/2025 Other I, Pattie Ac, am scribing for Dr. David German. I, Dr. David German, personally performed the services described in this documentation, as scribed by Pattie Ac, and it is both accurate and complete. Plan Of Treatment Medication Medication Name Sig Start Date Stop Date Notes HYDROcodone-Acetaminophen 10-325 MG Tablet 1 tablet as needed Orally every 6 hrs; Duration: 30 days 09/21/2025 10/25/2025 fill 09/25/2025 HYDROcodone-Acetaminophen 10-325 MG Tablet 1 tablet as needed Orally every 6 hrs; Duration: 30 days 09/21/2025 11/24/2025 fill 10/25/2025 Treatment Notes Assessment Notes Chronic pain syndrome I had a nice visit with the patient today regarding his chronic pain issues. Unfortunately, he has had a rough time since he rolled the golf cart, pinning himself. He is awaiting updated imaging of his shoulder and knee. It sounds like he has imaging of his hip pending, and he has been struggling with the pain. He also reports dental issues and some sinus pain. He presents in the clinic not looking too well as a result of these events. He continues to find the current medication regimen somewhat effective overall. His UDS and pill counts have been consistent with his current treatment regimen. We will continue his medications unchanged. We will follow up in a couple of months and proceed accordingly. Other I, Pattie Ac, am scribing for Dr. David German. I, Dr. David German, personally performed the services described in this documentation, as scribed by Pattie Ac, and it is both accurate and complete. Next Appt Details Follow Up: 2 Months, Reason: Provider Name:David German, 11/23/2025 02:40:00 PM, [address] [place], [address], History and Physical Notes * HPI (History of Present Illness) Category Sub-Category Detail Notes Category Not es Pain Details Pain Location Neck,Headaches,L eft Arm,Right Arm,Wrists,Mid-Back,Left Shoulder,Right Shoulder,Left Knee,Right Knee,Lower Back,Left Leg,Right Leg,Left Foot,Right Foot Quality Sharp/Stabbing,Dull/ Ache,Pins/[place],Throbbing,Burn/Tingle,Numb Severity of pain at its worst 10 Severity of pain at its best 10 Severity of average pain 10 Severity of pain right now 10 Severity of pain on medication 10 When did you last take your pain medicine 09/21/25 1300 Hydrocodone 10/325 Medication Details Do you have a lock b ox or safe place for medication away from minors and/or others? Yes Do you have any leftover pain medication building up at your house? No Do you understand that pain medication c an be addicting and can cause overdose? Yes Do you feel you can REDUCE the amount of medication you take today? No Opioid Assessment Tools Pill Count 18 Last Urine Drug Screen 07/20/25 Conf Today's Rapid Urine Drug Screen None [place] Prescription Monitoring Program [place] PDMP, found to be consistent with treatment history, reviewed today Treatment History Test undergone in the past 5 EMGHip XRAY 2020 Past medication you have taken Hydrocodo ne #120 Treatments you have had None IPMA Examination Category Sub-Category Detail Notes Category Not es General Examination Constitutional: Patient appears to be appropriate looking for stated age, morbidly obese. Patient is awake, alert and oriented to person, place and time with recent/ remote memory intact. , in no acute distress. Respiratory: Visual Inspection: breathing equal bilaterally, trachea midline. HEENT: Atraumatic, Normocephalic. Pupils grossly normal on inspection. Cardiovascular: Cardiac rhythm is regular. Lumbar Spine: Inspection of the lumbar spine reveals normal lordosis with no obvious scoliosis or asymmetry noted. Range of Motion: Reduced ROM in all directions with pain throughout Joints- Hips/ SI Joint: SI Joint Palpation : Restriction of hip ROM on the left with pain B/L Knees: Arthritic appearance, no obvious edema. + pain on ROM, which is ~0-90, + crepitus. Right ankle pain on limited ROM. Generalized tenderness. Deformity of b/l feet/ankles with custom boots Neurology - Mental Status: Mood and affect are grossly normal. Neurology - Coordination: Slow antalgic gait with a straight cane Neurology - Straight Leg Raising: Right: 60 degrees and negative. Left: 60 degrees and negative. Neurology - Motor Strength: Left UE strength - Flexors: 4+/5. Right UE strength - Flexors: 4+/5. Left UE strength - Extensors: 4+/5. Right UE strength - Extensors: 4+/5. 4+/5 with setter up strength Left UE Tone: Normal. Right UE Tone: Normal. Left LE strength - Flexors: 4/5. Right LE strength - Flexors: 4/5. Left LE strength - Extensors: 4/5. Right LE strength - Extensors: 4/5. Left LE Tone: Normal. Right LE Tone: Normal. Neurology - Sensation: decreased in b/l hands throughout, worse in first 3 fingers b/l with dysesthesias, b/l median neuropathies Neurology - Deep Tendon Reflexes: Left biceps (DTR): 2. Right biceps (DTR): 2. Left triceps (DTR): 2. Right triceps (DTR): 2. Left brachioradialis (DTR): 2. Right brachioradialis (DTR): 2. Left patellar (DTR): 1. Right patellar (DTR): 1. Left achilles (DTR): 0. Right achilles (DTR): 0. Skin: Scars : scars consistent with hx. Inspection: no obvious bruising, rash, ulcerations or discolorations noted. Progress Notes * Beka BYRNESn CDOB:[birth year] (55 yo M)Acc No.[id number]:09/21/2025 Progress Notes Patient: Stephen Walker Provider: Bharti German D.O. :1970 A ge:55 Y S ex:Male Date:09/21/2025 Address:[address] [place] [address] Pcp:Deanna Rodriguez APRN Check In:02:14 PM WHAT JOB TITLES MEAN Subjective: * Chief Complaints: * 2 month f/u * HPI: P ain Details: Pain Location N alva,Headaches,Left Arm,Right Arm,Wrists,Mid-Back,Left Shoulder,Right Shoulder,Left Knee,Right Knee,Lower Back,Left Leg,Right Leg,Left Foot,Right Foot. Quality S harp/Stabbing,Dull/Ache,Pins/[place],Throbbing,Burn/Tingle,Numb. Severity of pain at its worst 1 0. Severity of pain at its best 1 0. Severity of pain on medication 1 0. Severity of average pain 1 0. Severity of pain right now 1 0. When did you last take your pain medicine 1 11/22/24 1300 Hydrocodone 10/325. M edication Details: Do you have a lock box or safe place for medication away from minors and/or others? Y es. Do you have any leftover pain medication building up at your house? N o. Do you understand that pain medication can be addicting and can cause overdose? Y es. Do you feel you can REDUCE the amount of medication you take today? N o. O pioid Assessment Tools: Pill Count 1 8. Last Urine Drug Screen 1 Conf. Today's Rapid Urine Drug Screen N one. [place] Prescription Monitoring Program [place], f ound to be consistent with treatment history, reviewed today. T reatment History: Test undergone in the past 0 11/25/2024 [facility] H ip XRAY 2020. Past medication you have taken Hydrocodone 10/325 #120 . Treatments you have had N one IPMA. Corin chu Note: My face hurts. I rolled my golf cart. Patient returns to the clinic for a 2-month follow-up visit. He reports increased facial pain, and he plans to see his dentist to further evaluate it. He is prescribed hydrocodone 10-325 mg #120 by the clinic. 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 * ROS: G eneral/Constitutional: Fatigue/Tiredness Y es. F ever N o. R ecent weight gain N o. R ecent weight loss N o. R espiratory: Cough N o. W heezing N o. S hortness of breath?Yes. G astrointestinal: Abdominal pain N o. C onstipation N o. N ausea?No. V omiting N o. P sychiatric: Anxiety N o. D epression N o. S uicidal thoughts N o. P anic Attacks N o. * Screening: * COMM - Current Opioid Misuse Measure: D ocumented By: Ranjeet Villa core: 6?Interpretation: Score indicates low risk of abuse behaviors C OMM - Current Opioid Misuse Measure How often have you had trouble with thinking clearly or had memory problems?SometimesHow often do people complain that you are not completing necessary tasks? (i.e., doing things that need to be done, such as going to class, work or appointments)NeverHow often have you had to go to someone other than your prescribing physician to get sufficient pain relief from medications? (i.e., another doctor, the Emergency Room, friends, street sources)NeverHow often have you taken your medications differently from how they are prescribed?NeverHow often have you seriously thought about hurting yourself?NeverHow much of your time was spent thinking about opioid medications (having enough, taking them, dosing schedule, etc.)?NeverHow often have you been in an argument?SeldomHow often have you had trouble controlling your anger (e.g., road rage, screaming, etc.)?SeldomHow often have you needed to take pain medications belonging to someone else?NeverHow often have you been worried about how you're handling your medications?NeverHow often have others been worried about how you're handling your medications?NeverHow often have you had to make an emergency phone call or show up at the clinic without an appointment?NeverHow often have you gotten angry with people?SeldomHow often have you had to take more of your medication than prescribed?NeverHow often have you borrowed pain medication from someone else?NeverHow often have you used your pain medicine for symptoms other than for pain (e.g., to help you sleep, improve your mood, or relieve stress)?NeverHow often have you had to visit the Emergency Room?Seldom * Medical History: Arthritis, Cancer, Depression, Thyroid disease, Headache, migraine Depression Cancer Arthritis Thyroid disease Swelling of multiple joints Heart stents Medical History Verified * Surgical History: Arthroscopic Surgery cardiac angiogram 2022 Club Foot-Triple Arthrodesis right foot surgery cardiac angiogram 02/2025 Surgical History verified. * Family History: M igrated Family History: : Cancer, C hronic pain, H eart disease, S troke. F amily History Verified.. * Social History: T obacco Use: T obacco Control (Standard) T obacco use: N onsmoker D rugs/Alcohol: D o you drink alcohol?: No. M igrated Social History: M igrated Social [...] ever smoked, W orking currently? - No. S ocial History Verified. P atient is on disability. * Medications: T akingAspirin 81 81 MG Tablet Delayed Release 1 tablet Orally Once a day Breztri Aerosphere 160 mcg-9mcg-4.8mcg/actuation HFA aerosol inhaler INHALE TWO PUFFS TWICE DAILY , Notes to Pharmacist: *Reorder from [facility] for eRx and Interaction Alerts*Clopidogrel Bisulfate 75 MG Tablet TAKE 1 TABLET BY MOUTH EVERY DAY Oral Furosemide 20 MG Tablet TAKE 1 TABLET BY MOUTH EVERY DAY Oral HYDROcodone-Acetaminophen 10-325 MG Tablet 1 tablet as needed Orally every 6 hrs As needed Not to exceed 4 per day, stop date 09/25/2025, Notes to Pharmacist: fill 08/26/2025Jarocho Lisinopril 5 MG Tablet TAKE 1 TABLET BY MOUTH EVERY DAY Oral Meloxicam 15 MG Tablet TAKE 1 TABLET BY MOUTH EVERY DAY Oral Metoprolol Tartrate 25 MG Tablet TAKE ONE TABLET BY MOUTH TWICE DAILY Oral Potassium Chloride ER 8 MEQ Tablet Extended Release TAKE 1 TABLET BY MOUTH EVERY DAY Oral Repatha Vitamin D3 Zepbound 2.5 MG/0.5ML Solution Auto-injector 0.5 mL Subcutaneous once a week Taking Aspirin 81 81 MG Tablet Delayed Release 1 tablet Orally Once a day Taking Breztri Aerosphere 160 mcg-9mcg-4.8mcg/actuation HFA aerosol inhaler INHALE TWO PUFFS TWICE DAILY , Notes to Pharmacist: *Reorder from [facility] for eRx and Interaction Alerts*Taking Clopidogrel Bisulfate 75 MG Tablet TAKE 1 TABLET BY MOUTH EVERY DAY Oral Taking Furosemide 20 MG Tablet TAKE 1 TABLET BY MOUTH EVERY DAY Oral Taking HYDROcodone-Acetaminophen 10-325 MG Tablet 1 tablet as needed Orally every 6 hrs As needed Not to exceed 4 per day, stop date 09/25/2025, Notes to Pharmacist: fill 08/26/2025Felton Avendaño Taking Lisinopril 5 MG Tablet TAKE 1 TABLET BY MOUTH EVERY DAY Oral Taking Meloxicam 15 MG Tablet TAKE 1 TABLET BY MOUTH EVERY DAY Oral Taking Metoprolol Tartrate 25 MG Tablet TAKE ONE TABLET BY MOUTH TWICE DAILY Oral Taking Potassium Chloride ER 8 MEQ Tablet Extended Release TAKE 1 TABLET BY MOUTH EVERY DAY Oral Taking Repatha Taking Vitamin D3 Taking Zepbound 2.5 MG/0.5ML Solution Auto-injector 0.5 mL Subcutaneous once a week Not-TakingAtorvastatin Calcium 40 MG Tablet TAKE 1 TABLET BY MOUTH AT BEDTIME Oral celecoxib 200mg , Notes to Pharmacist: *[facility] Interaction Alert[facility]*Cymbalta 30mg , Notes to Pharmacist: *[facility]*Ozempic 0.25 mg or 0.5 mg (2 mg/3 mL) subcutaneous pen injector INJECT 0.25MG every week , Notes to Pharmacist: *[facility] and Interaction Alert[facility]*tramadol 50mg , Notes to Pharmacist: *[facility] Interaction [facility]*Zonisamide , Notes to Pharmacist: *[facility]*Medication List reviewed and reconciled with the patientNot-Taking Atorvastatin Calcium 40 MG Tablet TAKE 1 TABLET BY MOUTH AT BEDTIME Oral Not-Taking celecoxib 200mg , Notes to Pharmacist: *[facility]*Not-Taking Cymbalta 30mg , Notes to Pharmacist: *[facility] for [facility] and Interaction Alerts*Not-Taking Ozempic 0.25 mg or 0.5 mg (2 mg/3 mL) subcutaneous pen injector INJECT 0.25MG every week , Notes to Pharmacist: *[facility] for [facility] and Interaction Alerts*Not-Taking tramadol 50mg , Notes to Pharmacist: *[facility] for [facility] and Interaction Alert[facility]*Not-Taking Zonisamide , Notes to Pharmacist: *[facility]*Medication List reviewed and reconciled with the patient Objective: * Vitals: H t: 74.00 in, Wt:330lbs, Wt-k.69 kg, BMI:42.36Index, Ht-cm: 187.96 cm. * P ast Orders: L ab:Urine Confirmation Panel (instrument) - [id number] (Order Date - 07/20/2025) (Collection Date & Time - 07/20/2025) Value Reference Range 6-Acetylmorphine 0 <6 - ng/mL 7-Aminoclonazepam 0 <60 - ng/mL Alprazolam 0 <60 - ng/mL Amphetamine 0 <75 - ng/mL aOH-Alprazolam 0 <60 - ng/mL Buprenorphine 0.0 <7.5 - ng/mL Norbuprenorphine 0.0 <37.5 - ng/mL Carisoprodol 0 <75 - ng/mL Codeine 0 <75 - ng/mL EDDP 0 <75 - ng/mL Fentanyl 0 <6 - ng/mL Hydrocodone 387 H <75 - ng/mL Hydromorphone 305 H <75 - ng/mL Lorazepam 0 <60 - ng/mL MDMA 0 <75 - ng/mL Meperidine 0.0 <37.5 - ng/mL Meprobamate 0 <75 - ng/mL Methamphetamine 0 <75 - ng/mL Methadone 0 <75 - ng/mL Morphine 0 <75 - ng/mL Nordiazepam 0 <60 - ng/mL Norfentanyl 0 <6 - ng/mL Normeperidine 0.0 <37.5 - ng/mL O-desmethyltramadol 0 <75 - ng/mL Oxazepam 0 <60 - ng/mL Oxycodone 0.0 <37.5 - ng/mL Oxymorphone 0 <75 - ng/mL Phencyclidine 0.0 <7.5 - ng/mL Tapentadol 17.7 <37.5 - ng/mL Temazepam 29 <60 - ng/mL Tramadol 30 <75 - ng/mL Norhydrocodone 773 H <75 - ng/mL Noroxycodone 0 <38 - ng/mL Pregabalin 0 <225 - ng/mL Gabapentin 0 <225 - ng/mL Benzoylecgonine 0.0 <37.5 - ng/mL 4-Hydroxy Xylazine 0 <25 - ng/mL * Examination: G eneral Examination: C onstitutional: Patient appears to be appropriate looking for stated age, morbidly obese. Patient is awake, alert and oriented to person, place and time with recent/ remote memory intact. , in no acute distress. Respiratory: Visual Inspection: breathing equal bilaterally, trachea midline. HEENT: Atraumatic, Normocephalic. Pupils grossly normal on inspection. Cardiovascular: Cardiac rhythm is regular. Lumbar Spine: Inspection of the lumbar spine reveals normal lordosis with no obvious scoliosis or asymmetry noted. Range of Motion: Reduced ROM in all directions with pain throughout Joints- Hips/ SI Joint: SI Joint Palpation : Restriction of hip ROM on the left with pain B/L Knees: Arthritic appearance, no obvious edema. + pain on ROM, which is ~0-90, + crepitus. Right ankle pain on limited ROM. Generalized tenderness. Deformity of b/l feet/ankles with custom boots Neurology - Mental Status: Mood and affect are grossly normal. Neurology - Coordination: Slow antalgic gait with a straight cane Neurology - Straight Leg Raising: Right: 60 degrees and negative. Left: 60 degrees and negative. Neurology - Motor Strength: Left UE strength - Flexors: 4+/5. Right UE strength - Flexors: 4+/5. Left UE strength - Extensors: 4+/5. Right UE strength - Extensors: 4+/5. 4+/5 with setter up strength Left UE Tone: Normal. Right UE Tone: Normal. Left LE strength - Flexors: 4/5. Right LE strength - Flexors: 4/5. Left LE strength - Extensors: 4/5. Right LE strength - Extensors: 4/5. Left LE Tone: Normal. Right LE Tone: Normal. Neurology - Sensation: decreased in b/l hands throughout, worse in first 3 fingers b/l with dysesthesias, b/l median neuropathies Neurology - Deep Tendon Reflexes: Left biceps (DTR): 2. Right biceps (DTR): 2. Left triceps (DTR): 2. Right triceps (DTR): 2. Left brachioradialis (DTR): 2. Right brachioradialis (DTR): 2. Left patellar (DTR): 1. Right patellar (DTR): 1. Left achilles (DTR): 0. Right achilles (DTR): 0. Skin: Scars : scars consistent with hx. Inspection: no obvious bruising, rash, ulcerations or discolorations noted. Assessment: * Assessment: 1. C hronic pain syndrome - G89.4 (Primary) 2 . C ervicalgia - M54.2 ? 3 . D egeneration of intervertebral disc of lumbar region with discogenic back pain - M51.360 4 . P ain in right ankle and joints of right foot - M25.571 5. P aresthesia of upper extremity - R20.2 6 . U nspecified abnormalities of gait and mobility - R26.9 7 . B ilateral primary osteoarthritis of knee - M17.0 8 . L dilcia term (current) use of opiate analgesic - Z79.891 ? Plan: * Treatment: 2. C ervicalgia Refill HYDROcodone-Acetaminophen Tablet, 10-325 MG, 1 tablet as needed, Orally, every 6 hrs As needed Not to exceed 4 per day, 30 days, 120 Tablet, Start Date: 09/21/2025, Stop Date: 10/25/2025, Refills 0, Notes to Pharmacist: fill 09/25/2025; R efill HYDROcodone-Acetaminophen Tablet, 10-325 MG, 1 tablet as needed, Orally, every 6 hrs As needed Not to exceed 4 per day, 30 days, 120 Tablet, Start Date: 09/21/2025, Stop Date: 11/24/2025, Refills 0, Notes to Pharmacist: fill 10/25/2025. ? 3. O thers Notes: IPattie, am scribing for Dr. David German. I, Dr. David German, personally performed the services described in this documentation, as scribed by Pattie Ac, and it is both accurate and complete. * Follow Up: 2 Months Billing Information: * Visit Code: 70567 Office Visit, Est Pt., Level 4. * Procedure Codes: Care Plan Details* * Electronic signature of David German DO on 09/24/2025 at 02:29 AM WHAT JOB TITLES MEAN Sign off status: Pending * Provider: Bharti German D.O. Date: 11/22/2024 Generated for Bertha etienne/Chris/Car on: 11/25/2024 02:29 AM WHAT JOB TITLES MEAN
[2025-09-24 02:28] VITALS: BP 140/86; PULSE 78; RESP 16; TEMP 37; O2SAT 97; BMI 46.0
--- OUTSIDE RECORDS SUMMARY | 2025-09-24 02:29 | XMS_ITS | Clinical Summary ---
Author Organization 

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
--- OUTSIDE RECORDS SUMMARY | 2025-09-24 02:30 | XMS_ITS | Patient Health Record ---
Author Organization [facility] Address [address] [facility] [place] [address] Care Team Providers Care Fiscal Economist Name Role Phone Michael HARITHA Deanna Primary Care Provider Unavaila sergio IQBAL KURTIS Unavailable [phone] EjIbrahima shepard Unavailable [phone] Allergies Allergen (clinical drug ingredient) Drug/Non Drug Allergy documented on EMR Reaction Allergy Type Onset Date Status minocycline Minocycline Unknown Drug Allergy Act yolanda Results Component Value Reference Range Notes TESTOSTERONE, TOTAL, MALES ( ADULT), IA (873) Reviewed date:07/29/2025 09:39:57 AM Interpretation: Performing Lab: Notes/Report: Reason For Referral No Information Medications Medication SIG (Take, Route, Frequency, Duration) Notes Start Date End Date Status Meloxicam 15 MG 1 tablet Orally Once a day Active Aspirin 81 81 MG 1 tablet Orally Once a day Active Lisinopril 10 MG 1 tablet Orally Once a day Active Furosemide Active Repatha 140 MG/ML 1 mL Subcutaneous Active Zepbound 2.5 MG/0.5ML 0.5 mL Subcutaneous Active Jatenzo 237 MG 1 capsule Orally Twi ce a day; Duration: 90 days 04/12/2024 Not-Takin g Ozempic Not-Taking Jatenzo 198 mg TAKE 2 CAPSULES BY M OUTH TWICE DAILY; Duration: 30 05/20/2025 Active HYDROcodone-Acetaminoph en 10-325 MG 1 tablet as needed Orally every 6 hrs Active Plavix 75 MG 1 tablet Orally Once a day Active Social History Tobacco Use: Social History Observation Description Date Details (start date - stop date) Former Smoker NA - NA Tobacco Control (Standard) Question Answer Notes Tobacco use: Former smoker How long has it been since you last smoked? 5-10 years AUDIT-C (Standard) Question Answer Notes Did you have a drink containing alcohol in the p ast year? No Points 0 Interpretation Negative Problems Problem Type SNOMED Code ICD Code Onset Dates Problem Status W/U Status Risk Notes Problem Essential hypertension (17921911) Essential hypertension (I10) Active confirmed Problem Obesity (380087084) Obesity (E66.9) Active confirmed Problem Obstructive sleep apnea (18054755) Obstructive sleep apnea (G47.33) Active confirmed Problem Body mass index 40+ - morbidly obese (989569164) BMI 40.0-44.9, adult (Z68.41) Active confirmed Problem Male hypogonadism (89808166) Hypogonadism in male (E29.1) Active confirmed Problem Needle phobia (168408635) Needle phobia (F40.298) Active confirmed Problem Coronary artery disease (84419898) CAD (coronary artery disease) (I25.10) Active confirmed Vital Signs Heart Rate 75 /min 07/28/2025 Blood pressure diastolic 78 mm Hg 07/28/2025 Height-cm 185.42 cm 07/28/2025 Weight-kg 150.59 kg 07/28/2025 Height 73 in 07/28/2025 Blood pressure systolic 117 mm Hg 07/28/2025 Weight 332 lbs 07/28/2025 BMI 43.8 kg/m2 07/28/2025 Encounters Encounter Location Date Provider Diagnosis [facility] [address] [facility] [place] [address] 11/25/2024 Ibrahima Pevril Hypogonadism in male E29.1 ; Fatigue R53.83 ; Needle phobia F40.298 ; CAD (coronary artery disease) I25.10 ; Essential hypertension I10 ; Obstructive sleep apnea G47.33 and Obesity E66.[address] [facility] [address] [facility] [place] [address] 03/24/2025 Ibrahima Pevril Hypogonadism in male E29.1 ; Fatigue R53.83 ; Needle phobia F40.298 ; CAD (coronary artery disease) I25.10 ; Essential hypertension I10 ; Obstructive sleep apnea G47.33 ; Obesity E66.9 and BMI 40.0-44.9, adult Z68.41 [facility] [address] [facility] [place] [address] 07/28/2025 Ibrahima Ta Hypogonadism in male E29.1 ; Fatigue R53.83 ; CAD (coronary artery disease) I25.10 ; Essential hypertension I10 ; Obstructive sleep apnea G47.33 ; Obesity E66.9 and BMI 40.0-44.9, adult Z68.41 [facility] [address] [facility] [place] [address] 10/27/2024 KURTIS IQBAL [facility] [address] [facility] [place] [address] 11/29/2024 Ibrahima Ta Assessments Encounter Date Diagnosis (ICD Code) Assessment Notes Treatment Notes Treatment Clinical Notes Section Notes 11/25/2024 Hypogonadism in male (ICD-10 - E29.1) The patient and I agree on continuing with agreed regimen of TRT with previously increased dose of 396mg given better results of surveillance labs that were previously checked. 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 We again discussed diet and exercise and the importance of this, and patient reports to be trying to better this. We discussed risks vs benefits on TRT, especially assisted supplementation. 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 For now, no need for further intervention or workup. Plan is to have patient return care in 4 months with repeat surveillance labs and continued reassessment. Vitals continue to remain stable. No new complaints mentioned. Through shared decision making, we are in agreement with this plan. All questions that were asked, were answered, and he is satisfied with this plan. He understands to return care sooner if needed. 03/24/2025 Hypogonadism in male (ICD-10 - E29.1) The patient and I agree on continuing with agreed regimen of TRT with previously increased dose of 396mg given better results of surveillance labs that were previously checked. We again discussed diet and exercise and the importance of this, and patient reports to be trying to better this. 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 For now, no need for further intervention or workup. Plan is to have patient return care in 4 months with repeat surveillance labs and continued reassessment. Vitals continue to remain stable. No new complaints mentioned. Through shared decision making, we are in agreement with this plan. All questions that were asked, were answered, and he is satisfied with this plan. He understands to return care sooner if needed. 03/24/2025 Fatigue (ICD-10 - R53.83) The patient and I agree on continuing with agreed regimen of TRT with previously increased dose of 396mg given better results of surveillance labs that were previously checked. We again discussed diet and exercise and the importance of this, and patient reports to be trying to better this. 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 For now, no need for further intervention or workup. Plan is to have patient return care in 4 months with repeat surveillance labs and continued reassessment. Vitals continue to remain stable. No new complaints mentioned. Through shared decision making, we are in agreement with this plan. All questions that were asked, were answered, and he is satisfied with this plan. He understands to return care sooner if needed. 07/28/2025 Hypogonadism in male (ICD-10 - E29.1) The patient and I agree on continuing with agreed regimen of TRT with previously increased dose of 396mg given better results of surveillance labs that were previously checked. We again discussed diet and exercise and the importance of this, and patient reports to be trying to better this. 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 For now, no need for further intervention or workup. Plan is to have patient return care in 4 months with repeat surveillance labs and continued reassessment. He may call in the future as he is interested in possibly transitioning TRT regimen to T. cypionate injections.. Vitals continue to remain stable. No new complaints mentioned. Through shared decision making, we are in agreement with this plan. All questions that were asked, were answered, and he is satisfied with this plan. He understands to return care sooner if needed. 07/28/2025 Fatigue (ICD-10 - R53.83) The patient and I agree on continuing with agreed regimen of TRT with previously increased dose of 396mg given better results of surveillance labs that were previously checked. We again discussed diet and exercise and the importance of this, and patient reports to be trying to better this. 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 For now, no need for further intervention or workup. Plan is to have patient return care in 4 months with repeat surveillance labs and continued reassessment. He may call in the future as he is interested in possibly transitioning TRT regimen to T. cypionate injections.. Vitals continue to remain stable. No new complaints mentioned. Through shared decision making, we are in agreement with this plan. All questions that were asked, were answered, and he is satisfied with this plan. He understands to return care sooner if needed. 07/28/2025 CAD (coronary artery disease) (ICD-10 - I25.10) The patient and I agree on continuing with agreed regimen of TRT with previously increased dose of 396mg given better results of surveillance labs that were previously checked. We again discussed diet and exercise and the importance of this, and patient reports to be trying to better this. We discussed risks vs benefits on TRT, especially assisted supplementation. For now, no need for further intervention or workup. Plan is to have patient return care in 4 months with repeat surveillance labs and continued reassessment. He may call in the future as he is interested in possibly transitioning TRT regimen to T. cypionate injections.. Vitals continue to remain stable. No new complaints mentioned. Through shared decision making, we are in agreement with this plan. All questions that were asked, were answered, and he is satisfied with this plan. He understands to return care sooner if needed. 03/24/2025 Needle phobia (ICD-10 - F40.298) The patient and I agree on continuing with agreed regimen of TRT with previously increased dose of 396mg given better results of surveillance labs that were previously checked. We again discussed diet and exercise and the importance of this, and patient reports to be trying to better this. We discussed risks vs benefits on TRT, especially assisted supplementation. For now, no need for further intervention or workup. Plan is to have patient return care in 4 months with repeat surveillance labs and continued reassessment. Vitals continue to remain stable. No new complaints mentioned. Through shared decision making, we are in agreement with this plan. All questions that were asked, were answered, and he is satisfied with this plan. He understands to return care sooner if needed. 11/25/2024 Fatigue (ICD-10 - R53.83) The patient and I agree on continuing with agreed regimen of TRT with previously increased dose of 396mg given better results of surveillance labs that were previously checked. 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 We again discussed diet and exercise and the importance of this, and patient reports to be trying to better this. 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 For now, no need for further intervention or workup. Plan is to have patient return care in 4 months with repeat surveillance labs and continued reassessment. Vitals continue to remain stable. No new complaints mentioned. Through shared decision making, we are in agreement with this plan. All questions that were asked, were answered, and he is satisfied with this plan. He understands to return care sooner if needed. 11/25/2024 Needle phobia (ICD-10 - F40.298) The patient and I agree on continuing with agreed regimen of TRT with previously increased dose of 396mg given better results of surveillance labs that were previously checked. 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 We again discussed diet and exercise and the importance of this, and patient reports to be trying to better this. We discussed risks vs benefits on TRT, especially assisted supplementation. 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 For now, no need for further intervention or workup. Plan is to have patient return care in 4 months with repeat surveillance labs and continued reassessment. Vitals continue to remain stable. No new complaints mentioned. Through shared decision making, we are in agreement with this plan. All questions that were asked, were answered, and he is satisfied with this plan. He understands to return care sooner if needed. 03/24/2025 CAD (coronary artery disease) (ICD-10 - I25.10) The patient and I agree on continuing with agreed regimen of TRT with previously increased dose of 396mg given better results of surveillance labs that were previously checked. We again discussed diet and exercise and the importance of this, and patient reports to be trying to better this. 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 For now, no need for further intervention or workup. Plan is to have patient return care in 4 months with repeat surveillance labs and continued reassessment. Vitals continue to remain stable. No new complaints mentioned. Through shared decision making, we are in agreement with this plan. All questions that were asked, were answered, and he is satisfied with this plan. He understands to return care sooner if needed. 07/28/2025 Essential hypertension (ICD-10 - I10) The patient and I agree on continuing with agreed regimen of TRT with previously increased dose of 396mg given better results of surveillance labs that were previously checked. We again discussed diet and exercise and the importance of this, and patient reports to be trying to better this. We discussed risks vs benefits on TRT, especially assisted supplementation. For now, no need for further intervention or workup. Plan is to have patient return care in 4 months with repeat surveillance labs and continued reassessment. He may call in the future as he is interested in possibly transitioning TRT regimen to T. cypionate injections.. Vitals continue to remain stable. No new complaints mentioned. Through shared decision making, we are in agreement with this plan. All questions that were asked, were answered, and he is satisfied with this plan. He understands to return care sooner if needed. 07/28/2025 Obstructive sleep apnea (ICD-10 - G47.33) The patient and I agree on continuing with agreed regimen of TRT with previously increased dose of 396mg given better results of surveillance labs that were previously checked. We again discussed diet and exercise and the importance of this, and patient reports to be trying to better this. We discussed risks vs benefits on TRT, especially assisted supplementation. For now, no need for further intervention or workup. Plan is to have patient return care in 4 months with repeat surveillance labs and continued reassessment. He may call in the future as he is interested in possibly transitioning TRT regimen to T. cypionate injections.. Vitals continue to remain stable. No new complaints mentioned. Through shared decision making, we are in agreement with this plan. All questions that were asked, were answered, and he is satisfied with this plan. He understands to return care sooner if needed. 11/25/2024 CAD (coronary artery disease) (ICD-10 - I25.10) The patient and I agree on continuing with agreed regimen of TRT with previously increased dose of 396mg given better results of surveillance labs that were previously checked. 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 We again discussed diet and exercise and the importance of this, and patient reports to be trying to better this. We discussed risks vs benefits on TRT, especially assisted supplementation. 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 For now, no need for further intervention or workup. Plan is to have patient return care in 4 months with repeat surveillance labs and continued reassessment. Vitals continue to remain stable. No new complaints mentioned. Through shared decision making, we are in agreement with this plan. All questions that were asked, were answered, and he is satisfied with this plan. He understands to return care sooner if needed. 03/24/2025 Essential hypertension (ICD-10 - I10) The patient and I agree on continuing with agreed regimen of TRT with previously increased dose of 396mg given better results of surveillance labs that were previously checked. We again discussed diet and exercise and the importance of this, and patient reports to be trying to better this. 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 For now, no need for further intervention or workup. Plan is to have patient return care in 4 months with repeat surveillance labs and continued reassessment. Vitals continue to remain stable. No new complaints mentioned. Through shared decision making, we are in agreement with this plan. All questions that were asked, were answered, and he is satisfied with this plan. He understands to return care sooner if needed. 11/25/2024 Essential hypertension (ICD-10 - I10) The patient and I agree on continuing with agreed regimen of TRT with previously increased dose of 396mg given better results of surveillance labs that were previously checked. 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 We again discussed diet and exercise and the importance of this, and patient reports to be trying to better this. We discussed risks vs benefits on TRT, especially assisted supplementation. 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 For now, no need for further intervention or workup. Plan is to have patient return care in 4 months with repeat surveillance labs and continued reassessment. Vitals continue to remain stable. No new complaints mentioned. Through shared decision making, we are in agreement with this plan. All questions that were asked, were answered, and he is satisfied with this plan. He understands to return care sooner if needed. 07/28/2025 Obesity (ICD-10 - E66.9) The patient and I agree on continuing with agreed regimen of TRT with previously increased dose of 396mg given better results of surveillance labs that were previously checked. We again discussed diet and exercise and the importance of this, and patient reports to be trying to better this. 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 For now, no need for further intervention or workup. Plan is to have patient return care in 4 months with repeat surveillance labs and continued reassessment. He may call in the future as he is interested in possibly transitioning TRT regimen to T. cypionate injections.. Vitals continue to remain stable. No new complaints mentioned. Through shared decision making, we are in agreement with this plan. All questions that were asked, were answered, and he is satisfied with this plan. He understands to return care sooner if needed. 03/24/2025 Obstructive sleep apnea (ICD-10 - G47.33) The patient and I agree on continuing with agreed regimen of TRT with previously increased dose of 396mg given better results of surveillance labs that were previously checked. We again discussed diet and exercise and the importance of this, and patient reports to be trying to better this. 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 For now, no need for further intervention or workup. Plan is to have patient return care in 4 months with repeat surveillance labs and continued reassessment. Vitals continue to remain stable. No new complaints mentioned. Through shared decision making, we are in agreement with this plan. All questions that were asked, were answered, and he is satisfied with this plan. He understands to return care sooner if needed. 07/28/2025 BMI 40.0-44.9, adult (ICD-10 - Z68.41) The patient and I agree on continuing with agreed regimen of TRT with previously increased dose of 396mg given better results of surveillance labs that were previously checked. We again discussed diet and exercise and the importance of this, and patient reports to be trying to better this. We discussed risks vs benefits on TRT, especially assisted supplementation. For now, no need for further intervention or workup. Plan is to have patient return care in 4 months with repeat surveillance labs and continued reassessment. He may call in the future as he is interested in possibly transitioning TRT regimen to T. cypionate injections.. Vitals continue to remain stable. No new complaints mentioned. Through shared decision making, we are in agreement with this plan. All questions that were asked, were answered, and he is satisfied with this plan. He understands to return care sooner if needed. 03/24/2025 Obesity (ICD-10 - E66.9) The patient and I agree on continuing with agreed regimen of TRT with previously increased dose of 396mg given better results of surveillance labs that were previously checked. We again discussed diet and exercise and the importance of this, and patient reports to be trying to better this. 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 For now, no need for further intervention or workup. Plan is to have patient return care in 4 months with repeat surveillance labs and continued reassessment. Vitals continue to remain stable. No new complaints mentioned. Through shared decision making, we are in agreement with this plan. All questions that were asked, were answered, and he is satisfied with this plan. He understands to return care sooner if needed. 11/25/2024 Obstructive sleep apnea (ICD-10 - G47.33) The patient and I agree on continuing with agreed regimen of TRT with previously increased dose of 396mg given better results of surveillance labs that were previously checked. 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 We again discussed diet and exercise and the importance of this, and patient reports to be trying to better this. 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 For now, no need for further intervention or workup. Plan is to have patient return care in 4 months with repeat surveillance labs and continued reassessment. Vitals continue to remain stable. No new complaints mentioned. Through shared decision making, we are in agreement with this plan. All questions that were asked, were answered, and he is satisfied with this plan. He understands to return care sooner if needed. 11/25/2024 Obesity (ICD-10 - E66.9) The patient and I agree on continuing with agreed regimen of TRT with previously increased dose of 396mg given better results of surveillance labs that were previously checked. 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 We again discussed diet and exercise and the importance of this, and patient reports to be trying to better this. We discussed risks vs benefits on TRT, especially assisted supplementation. 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 For now, no need for further intervention or workup. Plan is to have patient return care in 4 months with repeat surveillance labs and continued reassessment. Vitals continue to remain stable. No new complaints mentioned. Through shared decision making, we are in agreement with this plan. All questions that were asked, were answered, and he is satisfied with this plan. He understands to return care sooner if needed. 03/24/2025 BMI 40.0-44.9, adult (ICD-10 - Z68.41) The patient and I agree on continuing with agreed regimen of TRT with previously increased dose of 396mg given better results of surveillance labs that were previously checked. We again discussed diet and exercise and the importance of this, and patient reports to be trying to better this. 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 For now, no need for further intervention or workup. Plan is to have patient return care in 4 months with repeat surveillance labs and continued reassessment. Vitals continue to remain stable. No new complaints mentioned. Through shared decision making, we are in agreement with this plan. All questions that were asked, were answered, and he is satisfied with this plan. He understands to return care sooner if needed. Plan Of Treatment Pending Test Test Name Order Date HEPATIC FUNCTION PANEL (48566) CBC (H/H, RBC, INDICES, WBC, PLT) (1759) 03/25/2024 ESTRADIOL (4021) 03/25/2024 TESTOSTERONE, TOTAL, MALES (ADULT), IA ( 873) 03/25/2024 LH (615) 03/25/2024 PSA, TOTAL (5363) 03/25/2024 PROLACTIN (746) 03/25/2024 CBC w/ Auto Diff 08/24/2024 CBC w/ Auto Diff 11/25/2024 CBC w/ Auto Diff 03/24/2025 CBC w/ Auto Diff 07/28/2025 Estradiol Level 03/24/2025 Estradiol Level 07/28/2025 Estradiol Level 11/25/2024 Estradiol Level 08/24/2024 Hepatic Function Panel 08/24/2024 Testosterone (Free&Total) 07/28/2025 Testosterone Total 11/25/2024 PSA-Diagnostic 07/28/2025 PSA-Diagnostic 11/25/2024 PSA-Diagnostic 08/24/2024 Next Appt Details Provider Name:Ibrahima Ta, 12/01/2025 01:00:00 PM, [address] [place], [address], Insurance Providers Payer Name Payer Address Payer Phone Subscriber Number Group Number Insured Name Patient Relationship to Insured Coverage Start Date Coverage End Date BCBS [place] [address] [place], [place] [id number] Stephen Byrnes Self - patient is the insured Medical (General) History Medical History History ICD Code hypogonadism nonhodgkins lymphoma hypertension hyperlipidemia coronary artery disease sleep apnea Surgical History Surgery Date(Month/Year) knee arthroscopy cardiac stent 08/2023 ankle repair bunionectomy x2 angiogram 03/11/2025 Hospitalization History Reason Date(Month/Year) pneumonia/bronchitis 07/2002
--- OUTSIDE RECORDS SUMMARY | 2025-09-24 02:30 | XMS_ITS | Continuity of Care Document ---
Author Organization [facility] Noe Carr [facility] [place], [facility] ([facility]) Address [address] [place] [address] Care Team Providers Care Usability Strategist Name Role Phone SANDRA LIRA Primary Care Provider CALVIN Mary Referring Provider MICHAEL ELIZABETH Referring Provider [phone] Assessment No assessment recorded. Plan of Treatment Reminders Order Date Submit Date Provider Last Modified By Organization Details Last Modified Time Details Appointments None recorded. Lab CBC - ordered by [facility]/ will fax YF 2024 025 CECIL [facility], [address] [facility], [place], [address], 11:19:06 estradiol , serum 2024 025 [facility], [address] [facility] [address] [place], [address], 06:58:21 testoster one, total, serum 2024 025 [facility], [address] [facility], [place], [address], 06:58:21 Referral None recorded. Procedures None recorded. Surgeries None recorded. Imaging None recorded. Medication Orders None recorded. Patient TargetsNo targets recorded. Patient InstructionsNo instructions recorded. Reason for Referral None Reported. Results Created Date Observation Date Name Description Value Unit Range Abnormal Flag Note LastModifiedBy Organization Detail LastModifiedTime 10/15/07/27/2025 CBC WBC 7.5 x10 4.5-10 .5 Not Available [facility] [address], [place], [address], 07/27/2025 11:19:06 07/27/2007/27/2025 CBC RBC 4.96 x10 4.30-5 .90 Not Available [facility] [address] [facility], [place], [address], 07/27/2025 11:19:06 07/27/2007/27/2025 CBC HGB 15.4 g/dL 13.5-1 8.0 Not Available [facility] [address] [facility], [place], [address], 07/27/2025 11:19:06 07/27/2007/27/2025 CBC HCT 46.5 % 35.0-6 0.0 Not Available [facility] [address] [facility], [place], [address], 07/27/2025 11:19:06 07/27/2007/27/2025 CBC MCV 93.8 fL 80.0-9 9.9 Not Available [facility] [address] [facility], [place], [address], 07/27/2025 11:19:06 07/27/2007/27/2025 CBC MCH 31.1 pg 27.0-3 2.0 Not Available [facility] [address] [facility], [place], [address], 07/27/2025 11:19:06 07/27/2007/27/2025 CBC MCHC 33.2 g/dL 32.0-3 6.0 Not Available [facility] [address] [facility], [place], [address], 07/27/2025 11:19:06 07/27/2007/27/2025 CBC RDW 13.3 % 11.5-1 4.5 Not Available [facility] [address] [facility], [place], [address], 07/27/2025 11:19:06 07/27/2007/27/2025 CBC plt 246.4 x10 150.0- 451.0 Not Available [facility] [address] [place] [address] [facility], [place], [address], 07/27/2025 11:19:06 07/27/2007/27/2025 CBC lymphocytes % 22.2 % 20.0-5 0.0 Not Available [facility] [address] [place] [address] [facility], [place], [address], 07/27/2025 11:19:06 07/27/2007/27/2025 CBC granulcytes % 67.6 % 30.0-7 0.0 Not Available [facility] [address] [place] [facility] [address], [place], [address], 07/27/2025 11:19:06 07/27/2007/27/2025 CBC monocytes % 8.9 % 2.0-16 .0 Not Available [facility] [address] [place] [facility] [address], [place], [address], 07/27/2025 11:19:06 07/27/2007/27/2025 CBC granulcytes# 5.1 x10 Not Arelis ilable [facility] [address] [place] [address] [facility], [place], [address], 07/27/2025 11:19:06 07/27/2007/27/2025 CBC lymphocytes # 1.7 x10 Not Available [facility] [address] [place] [address] [facility], [place], [address], 07/27/2025 11:19:06 07/27/20 25 07/27/2025 CBC monocytes # 0.7 x10 Not Avai lable [facility] [address] [place] [address], [place], [address], 07/27/2025 11:19:06 07/27/20 25 07/28/2025 TESTO STERO NE, TOTAL , MALES (ADUL T), IA testosterone , total, males (adult), ia 686 NG/dL 250-82 7 normal Not Available [facility] [address] [place], [address], 07/28/2025 06:58:21 07/27/2007/28/2025 ESTRA DIOL estradiol 36 [...] is recom elo d (orde r code 98326 ). Pleas e note: patie nts being [...] s. [facility] s order code 53137 -Estr adiol , Ultra sensi tive LC/MS /MS demon strat es negli gible cross react ivity with fulve stran t. Not Available [facility] [address] [place], [address], 07/28/2025 06:58:21 08/31/2008/30/2025 XR, knee, 3 view No observ ation record ed. [facility] [place] [address] [place], [address], 09/02/2025 13:38:44 08/31/2008/30/2025 XR, hip, unila teral , 2 or 3 view No observ ation record ed. [facility] [place] [address] [place], [address], 09/02/2025 13:41:13 08/31/2008/30/2025 XR, shoul kwadwo, 2 or more view No observ ation record ed. [facility] [place] [address] [place], [address], 09/02/2025 13:38:44 Result Notes None recorded. Problems Name Problem SNOMED Code Status Onset Date Resolution Date Notes Provider Name and Address Organization Details Recorded Time Pain of knee region 6636375709 Active SANDRA LIRA, [address], , [facility] 15:05:10 Atypical chest pain [id number] Sam SANDRA SORAYA, [address], , [facility] 15:05:10 Electrocar diogram abnormal [id number] Sam SANDRA SORAYA, [address], , [facility] 15:05:10 Arthritis of left glenohumer al joint 7453619959174 100 Active SANDRANany LIRA, [address], , [facility] 5 15:05:10 Contusion of right ankle 3603860176164 9108 Sam LIRA, [address], , [facility] 5 15:05:10 Contusion of right knee 4610493038054 9104 Sam LIRA, [address], , [facility] 5 15:05:10 Contusion of right shoulder 1353929461778 9100 Sam LIRA, [address], , [facility] 5 15:05:10 Benign essential hypertensi on [id number] Sam LIRA, [address], , [facility] 5 15:05:10 Peripheral neuropathy due to type 2 diabetes mellitus [id number] Sam LIRA, [address], , [facility] 5 15:05:10 Backache [id number] Sam LIRA, [address], , [facility] 5 15:05:10 Osteoarthr itis of joint of right ankle 2309081843779 9101 Sam LIRA, [address], , [facility] 5 15:05:10 Stefan hematuria [id number] Sam LIRA, [address], , [facility] 15:05:10 Acquired valgus heel 710022319 Active SANDRA LIRA, [address], , [facility] 15:05:10 Lethargy 991047982 Active SANDRA LIRA, [address], [address] , [facility] 15:05:10 Pneumonia [id number] Sam LIRA, [address], [address] , [facility] 15:05:10 Osteoarthr itis of hip [id number] Sam LIRA, [address], , [facility] 15:05:10 Ankle pain [id number] Sam LIRA, [address], , [facility] 5 15:05:10 Infected insect bite [id number] Sam LIRA, [address], , [facility] 5 15:05:10 Dyspnea [id number] Sam LIRA, [address], [address] , [facility] 5 15:05:10 Cutaneous peripheral T-cell lymphoma [id number] Sam LIRA, [address], [address] , [facility] 5 15:05:10 Patient encounter status [id number] Sam LIRA, [address], , [facility] 5 15:05:11 Drug therapy finding [id number] Sam LIRA, [address], , [facility] 5 15:05:11 Impingemen t syndrome of left shoulder region 5804725740900 04 Sam LIRA, [address], [address] , [facility] 5 15:05:11 Tobacco smoking behavior - finding [id number] Sam LIRA, [address], [address] , [facility] 5 15:05:11 Cervical spondylosi s [id number] Sam LIRA, [address], [address] , [facility] 5 15:05:11 Peripheral vascular disease [id number] Sam LIRA, [address], [address] , [facility] 5 15:05:11 Body mass index 40+ - severely obese [id number] Sam LIRA, [address], [address] , [facility] 5 15:05:11 Bunion [id number] Sam LIRA, [address], [address] , [facility] 5 15:05:11 Diastolic heart failure [id number] Sam LIRA, [address], , [facility] 5 15:05:11 Cardiovasc ular stress test abnormal [id number] Sam LIRA, [address], , [facility] 5 15:05:11 Coronary atheroscle rosis [id number] Sam LIRA, [address], , [facility] 5 15:05:11 Pain of hip region [id number] Sam LIRA, [address], [address] , [facility] 5 15:05:11 Degenerati on of cervical interverte bral disc [id number] Sam LIRA, [address], [address] , [facility] 5 15:05:11 Inflammato ry dermatosis [id number] Sam LIRA, [address], [address] , [facility] 5 15:05:11 Obstructiv e sleep apnea syndrome [id number] Sam LIRA, [address], [address] , [facility] 5 15:05:11 Palpitatio ns 15019371 Active SANDRA SORAYA, [facility] [address] [place] [address], [address] , [facility] 5 15:05:11 COVID-19 625892745 Active SANDRA SORAYA, [address], [address] , [facility] 5 15:05:11 Dystrophia unguium 83041264 Active SANDRANany LIRA, [address], [address] , [facility] 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 Active 2022 Not Available [facility] 3 14:55:33 Obstructiv e sleep apnea of adult 3454476894184 Active 2022 JEREMY diez [facility] 4 00:46:00 Chronic pain 64766795 Active 2022 JEREMY diez [facility] 4 00:45:48 Chronic obstructiv e pulmonary disease 79424851 Active 2022 JEREMY diez [facility] 4 00:45:34 Mixed hyperlipid emia 775880027 Active 2022 JEREMY diez [facility] [place] 4 00:45:51 Prediabete s 841782951 Active 2023 JEREMY diez [facility] [place] 4 00:46:39 Coronary arterioscl erosis 25202941 Active 2023 JEREMY diez [facility] [place] 4 00:47:05 Morbid obesity 805919118 Active 2024 JENNIFER GREGORY [address] [place], [address] , [facility] 5 22:21:06 Superficia l laceration 224706816 Active 2024 Ernst Rivas MD [address] [place], [address] , [facility] 5 14:44:32 Problem Notes None recorded. Procedures Surgical History Date Name Laterality Status Provider Name and Address Organization Details Recorded Time 5 plain X-ray of right knee region completed JEREMYCOURTNEY HODGES [facility] 09/02/2025 13:36:56 5 plain X-ray of shoulder [facility]25 13:38:15 5 plain X-ray of hip completed JEREMY HODGES [facility] 09/02/2025 13:40:38 5 plain X-ray of right ankle completed [facility] 07/28/2025 10:43:36 5 plain X-ray of right knee region completed [facility] 07/28/2025 10:47:43 5 MRI of brain completed [facility] 02/08/2025 00:14:40 5 jr skin tag removal completed SANDRA LIRA, [facility] [address] [place], [address], [facility] 11/24/2024 15:41:47 4 plain X-ray of chest completed [facility] 09/22/2024 13:14:13 4 plain X-ray of chest completed [facility] 08/17/2024 17:47:[address] of head completed [facility] 08/17/2024 17:48:09 4 continuous positive airway pressure titration completed [facility] 02/11/2024 13:22:45 3 Colonoscopy completed AUDREY MERINO [facility] 02/16/2024 12:21:22 Knee Surgery completed [facility] 11/18/2023 11:28:30 Imaging Results None recorded. Procedure Notes None recorded. Medical Equipment None Reported. Allergies Allergen ID Allergen Name Allergen Category Reaction Reaction Severity Criticality Documentation Date Start Date Code Code System Note Provider Name and Address Organization Details Recorded Time 66460 minocycli ne medicatio n Not available Not available Not available 08/13/20232024 6980 RxNorm SANDRA LIRA, [facility] [address] [place], [address], [facility] 15:05:22 29803 atorvasta tin medicatio n Not available Not available Not available 08/08/20252024 56454 RxNorm SANDRA LIRA, [facility] [address] [place], [address], [facility] [place] 5 15:05:22 Medications Name Sig Start Date Stop [...] 10/29/19 23 2:40PM by Jeremy Hodges CMT (Naye calderon through Corbin Arce MD), Refill Request; Refill Quantity : 30; Tablet; Not Available Not Available Not Available Hydrocodo ne W/Acetami nophen four times daily 05/20 completed [facility]; Recorded 10/03/20 21 12:50PM by [...] Available Not Available No t Available Vitals None Recorded Social History Question Answer Notes LastModified by Invenshure ion Details LastModified Time Tobacco Smoking Status [facility] 18:07:59 What Is Your Level Of Caffeine Consumption? Moderate Information not available 11/18/2023 What Was The Date Of Your Most Recent Tobacco Screening? 04/07/2025 [email or web address] Information not available 04/07/2025 What Is Your Relationship Status? Single Information not available 11/18/2023 Do You Have Difficulty Walking Or Climbing Stairs? Yes Uses A Cane [email or web address] Information not available 11/18/2023 Sex: Unknown Functional Status Question Answer Note LastModified by Organizat ion Details LastModified Time How many times per week do you consume alcohol? 1-2 times per week [email or web address] Information not available 03/25/2023 Do you use any illicit or recreational drugs? No [email or web address] Information not available 11/18/2023 What is your level of alcohol consumption? Moderate [email or web address] Information not available 03/25/2023 Are you able to walk independently without assistance or assistive devices? YESASSIST [email or web address] Information not available 12/28/2024 Are you able to care for yourself independently? Yes [email or web address] Information not available 11/18/2023 Mental Status None recorded. Family History Relationship Description Onset Age of this Age Resolved Age Notes LastModified by Organization Details LastModified Time Mother Essential hypertension [email or web address] Not available 16:19:17 Mother Hyperlipidem ia Not available 11/18 11:25:59 Maternal Grandfather Malignant neoplasm of colon [email or web address] Not available 07/31 16:19:44 Father Hyperlipidem ia [email or web address] Not available 11/18 11:25:59 Medical History Condition Response Coronary Artery Disease Y Blood Diseases Y Kidney Stones Y Anxiety Disorder Y Muscle, Joint, or Bone Problems Y Arthritis Y Cancer Y High Cholesterol Y Heart Disease Y Hypertension Y Osteoporosis Y Immunizations Vaccine Type Date Status Note Provider Nam e and Address Organization Details Recorded Time Influenza, split virus, trivalent, preservative 5 completed Not Available [facility] 07/02/2023 14:55:34 Tdap 5 completed [facility] 04/08/2025 09:53:11 Past Encounters Encounter ID Performer Location Encounter Start Date Encounter Closed Date Diagnosis/Indication Diagnosis SNOMED-CT Code Diagnosis ICD10 Code Diagnosis IMO Codes Diagnosis Note [id number] JENNIFER GREGORY [facility] ([facility]) [address] [place] [address] 07/27/2025 10:22:02 07/28/2025 11:03:07 Male hypogonadism 96374896 E29.1 [id number] Health Concerns Section Related Observation LastModified by Organization Detai ls LastModified Time None Recorded Concern Status LastModified by Organization Details LastModified Time None Recorded Payers Encounter Date Sequence Insurance Name Policy Number Policy Head Covered Member ID Head Member ID Guarantor Name 07/27/2025 1 [place]/ [place]ANTAGE - PPO) [id number] Stephen Byrnes [id number] Stephen Byrnes
--- OUTSIDE RECORDS SUMMARY | 2025-09-24 02:30 | XMS_ITS | Patient Health Record ---
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 Name Role Phone Deanna Rodriguez APRN Primary Care Provider Unavaila sergio BrunnerDavid menendez Unavailable [phone] Albertina Moscoso Unavailable [phone] Betty, Earline Unavailable [phone] Allergies Allergen (clinical drug ingredient) Drug/Non Drug Allergy documented on EMR Reaction Allergy Type Onset Date Status minocycline Minocycline dizzy, weakness Drug Allergy Active Results Component Value Reference Range Flag Notes Tox Results Reviewed date:03/29/2025 02:53:42 PM Interpretation: Performing Lab: Notes/Report: Urine Confirmation Panel (in strument) - [id number] Reviewed date:03/29/2025 02:42:04 PM Interpretation: Performing Lab: [...] by the U.S. Food and Drug Administration. Urine Drug Screen (cup read) - [id number] Reviewed date:03/23/2025 03:03:42 PM Interpretation: Performing Lab: Notes/Report: AMP - BRIANA - BUP - BZO - MDMA - OPI + PCP - OXY - MTD - MAMP - Tox Results Reviewed date:07/28/2025 10:56:42 AM Interpretation: Performing Lab: Notes/Report: Tox Results Reviewed date:02/02/2025 03:31:04 PM Interpretation: Performing Lab: Notes/Report: Urine Confirmation Panel (in strument) - [id number] Reviewed date:07/28/2025 10:24:36 AM Interpretation: Performing Lab: Notes/Report: 6-Acetylmorphine 0 <6 [...] the U.S. Food and Drug Administration. Hydrocodone 387 <75 ng/mL H This test was developed and its performance characteristics determined by [facility]. It has not been cleared or approved by the U.S. Food and Drug Administration. Hydromorphone 305 <75 ng/mL H This test w as [...] the U.S. Food and Drug Administration. Tapentadol 17.7 <37.5 ng/mL N This test was developed and its performance characteristics determined by [facility]. It has not been cleared or approved by the U.S. Food and Drug Administration. Temazepam 29 <60 ng/mL N This test was developed and its performance characteristics determined by [facility]. It has not been cleared or approved by the U.S. Food and Drug Administration. Tramadol 30 <75 ng/mL N This test was developed and its performance characteristics determined by [facility]. It has not been cleared or approved by the U.S. Food and Drug Administration. Norhydrocodone 773 <75 ng/mL H This test was developed [...] by the U.S. Food and Drug Administration. Urine Drug Screen (cup read) - [id number] Reviewed date:07/20/2025 02:08:06 PM Interpretation: Performing Lab: Notes/Report: OPI + Urine Confirmation Panel (in strument) - [id number] Reviewed date:02/02/2025 02:50:47 PM Interpretation: Performing Lab: [...] by the U.S. Food and Drug Administration. Urine Drug Screen (cup read) - [id number] Reviewed date:01/26/2025 03:30:09 PM Interpretation:Negative all Performing Lab: Notes/Report: Negative all zzzUrine Drug Screen (confir mation by instrument) - [id number] Reviewed date:10/05/2024 01:56:11 PM Interpretation: Performing Lab: Notes/Report: Reason For Referral Reason B/L Carpel Tunnel Ev al and Treat Diagnosis 1 Chronic pain syndrom e (G89.4) Referral Organization [facility] Referring Provider First Name David Referring Provider Last Name Monserrat Referring Provider Speciality [facility] Referred Provider Hali Alex Referred Provider Specialty Orthopedic S urgery Referral Priority Routine Medications Medication SIG (Take, Route, Frequency, Duration) Notes Start Date End Date Status Zonisamide *Pick strength-form from [facility] for eRX* Not-Taking Ozempic 0.25 mg or 0.5 mg (2 mg/3 mL) subcutaneous pen injector INJECT 0.25MG every week *Reorder from [facility] for eRx and Interaction Alerts* Not-Taking HYDROcodone-Acetam inophen 10-325 MG Tablet 1 tablet as needed Orally every 6 hrs; Duration: 30 days As needed Not to exceed 4 per day fill 10/25/2025 09/21/2025 11/24/2025 Active tramadol 50mg *Reorder from [facility] for eRx and Interaction Alerts* Not-Taking Repatha Active Clopidogrel Bisulfate 75 MG Tablet TAKE 1 TABLET BY MOUTH EVERY DAY Oral Active celecoxib 200mg *Reorder from [facility] for eRx and Interaction Alerts* Not-Taking Furosemide 20 MG Tablet TAKE 1 TABLET BY MOUTH EVERY DAY Oral Active Cymbalta 30mg *Reorder from [facility] for eRx and Interaction Alerts* Not-Taking HYDROcodone-Acetam inophen 10-325 MG Tablet 1 tablet as needed Orally every 6 hrs; Duration: 30 days As needed Not to exceed 4 per day fill 09/25/2025 09/21/2025 10/25/2025 Active Metoprolol Tartrate 25 MG Tablet TAKE ONE TABLET BY MOUTH TWICE DAILY Oral Active Aspirin 81 81 MG Tablet Delayed Release 1 tablet Orally Once a day Active Meloxicam 15 MG Tablet TAKE 1 TABLET BY MOUTH EVERY DAY Oral Active Potassium Chloride ER 8 MEQ Tablet Extended Release TAKE 1 TABLET BY MOUTH EVERY DAY Oral Active Breztri Aerosphere 160 mcg-9mcg-4.8mcg/ac tuation HFA aerosol inhaler INHALE TWO PUFFS TWICE DAILY *Reorder from [facility] for eRx and Interaction Alerts* Active Atorvastatin Calcium 40 MG Tablet TAKE 1 TABLET BY MOUTH AT BEDTIME Oral Not-Taking Jatenzo Active Vitamin D3 Active Zepbound 2.5 MG/0.5ML Solution Auto-injector 0.5 mL Subcutaneous once a week Active Lisinopril 5 MG Tablet TAKE 1 [...] Status Risk Notes Problem Morbid obesity (disorder) (538631189) Morbid (severe) obesity due to excess calories (E66.01) 04/02/20 Active confirmed Problem Chronic pain syndrome (653349604) Chronic pain syndrome (G89.4) 04/02/20 Active confirmed Problem Osteoarthritis of knee (533455712) Bilateral primary osteoarthritis of knee (M17.0) Active confirmed Problem Primary osteoarthritis (328405570) Unilateral primary osteoarthritis, right knee (M17.11) 04/02/20 Active confirmed Problem Osteoarthritis of knee (696728902) Unilateral primary osteoarthritis, left knee (M17.12) 04/02/20 Active confirmed Problem Degeneration of lumbar intervertebral disc (76672787) Other intervertebral disc degeneration, lumbar region (M51.36) 04/02/20 Active confirmed Problem Cervicalgia (22247948) Cervicalgia (M54.2) 04/02/20 Active confirmed Problem Abnormal gait (98395266) Unspecified abnormalities of gait and mobility (R26.9) 04/02/20 Active confirmed Problem Cervical radiculopathy (11402871) Cervical radiculopathy (M54.12) Active confirmed Problem Bilateral carpal tunnel syndrome (6298367621314792 1) Bilateral carpal tunnel syndrome (G56.03) Active confirmed Problem Paresthesia of upper extremity (62975020) Paresthesia of upper extremity (R20.2) Active confirmed Problem Degeneration of intervertebral disc of lumbar region with discogenic back pain (M51.360) Active confirmed Vital Signs Height-cm 187.96 cm 09/21/2025 Weight-kg 149.69 kg 09/21/2025 Height 74.00 in 09/21/2025 Weight 330 lbs 09/21/2025 BMI 42.36 kg/m2 09/21/2025 Encounters Encounter Location Date Provider Diagnosis [facility] [address] [address] 05/25/2025 David German Chronic pain syndrom e [...] abnormalities of gait and mobility R26.9 and half-way (current) use of opiate analgesic Z79.891 [facility] [address] [address] 03/23/2025 David German Chronic pain syndrom e [...] abnormalities of gait and mobility R26.9 and manager terminal (current) use of opiate analgesic Z79.891 [facility] [address] [address] 01/26/2025 David German Chronic pain syndrom e [...] abnormalities of gait and mobility R26.9 and half-way (current) use of opiate analgesic Z79.891 [facility] [address] [address] 11/17/2024 David German Chronic pain syndrom e [...] abnormalities of gait and mobility R26.9 and manager terminal (current) use of opiate analgesic Z79.891 [facility] [address] [address] 09/27/2024 Earline Hernández Chronic pain syndrom e G89.4 ; Cervicalgia M54.2 ; Degeneration of intervertebral disc of lumbar region with discogenic back pain M51.360 ; Unilateral primary osteoarthritis, right knee M17.11 ; Unilateral primary osteoarthritis, left knee M17.12 ; Pain in right ankle and joints of right foot M25.571 ; Unspecified abnormalities of gait and mobility R26.9 and manager terminal (current) use of opiate analgesic Z79.891 [facility] [address] [address] 09/21/2025 David German Chronic pain syndrom e G89.4 ; Cervicalgia M54.2 ; Degeneration of intervertebral disc of lumbar region with discogenic back pain M51.360 ; Pain in right ankle and joints of right foot M25.571 ; Paresthesia of upper extremity R20.2 ; Unspecified abnormalities of gait and mobility R26.9 ; Bilateral primary osteoarthritis of knee M17.0 and manager terminal (current) use of opiate analgesic Z79.891 [facility] [address] [place] [address] 11/25/2024 Albertina gibson Cervical radiculopathy M54.12 and Bilateral carpal tunnel syndrome G56.03 [facility] [address] [address] 07/20/2025 David German Chronic pain syndrom e G89.4 ; Cervicalgia M54.2 ; Degeneration of intervertebral disc of lumbar region with discogenic back pain M51.360 ; half-way (current) use of opiate analgesic Z79.891 ; Pain in right ankle and joints of right foot M25.571 ; Paresthesia of upper extremity R20.2 ; Unspecified abnormalities of gait and mobility R26.9 and Bilateral primary osteoarthritis of knee M17.0 [facility] [address] [place] [place] [address] 09/27/2024 David German Assessments Encounter Date Diagnosis [...] couple of months for a biannual visit. 11/25/2024 Cervical radiculopathy (ICD-10 - M54.12) 11/25/2024 Bilateral carpal tunnel syndrome (ICD-10 - G56.03) 01/26/2025 Chronic pain syndrome (ICD-10 - G89.4) [...] to Dr. Alex for Carpal Tunnel Syndrome 09/27/2024 Cervicalgia (ICD-10 - M54.2) I had [...] couple of months for a biannual visit. 03/23/2025 Chronic pain syndrome (ICD-10 - G89.4) [...] to abide by our urine testing policy. 05/25/2025 Chronic pain syndrome (ICD-10 - G89.4) [...] a couple of months and proceed accordingly. 07/20/2025 Cervicalgia (ICD-10 - M54.2) 09/21/2025 Chronic pain syndrome (ICD-10 - G89.4) [...] a couple of months and proceed accordingly. 11/17/2024 Chronic pain syndrome (ICD-10 - G89.4) [...] effects are noted. 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 Patient is advised that best long-term goals include increased activity, core strengthening, proper weight management, coping strategies, avoidance of painful triggers, and targeted interventional therapy. We will see the patient for routine follow up in accordance with all clinic policies. We did remind patient today of current guidelines to decrease opioid when possible. We will continue to stress nonopioid treatment. 09/21/2025 Cervicalgia (ICD-10 - M54.2) 11/17/2024 Cervicalgia (ICD-10 - M54.2) 09/21/2025 Degeneration of intervertebral disc of lumbar region with discogenic back pain (ICD-10 - M51.360) 07/20/2025 Degeneration of intervertebral disc of lumbar region with discogenic back pain (ICD-10 - M51.360) 11/17/2024 Degeneration of intervertebral disc of lumbar region with discogenic back pain (ICD-10 - M51.360) 05/25/2025 Cervicalgia (ICD-10 - M54.2) 09/27/2024 Degeneration of [...] couple of months for a biannual visit. 03/23/2025 Cervicalgia (ICD-10 - M54.2) 01/26/2025 Cervicalgia (ICD-10 - M54.2) 09/27/2024 Unilateral primary osteoarthritis, right knee (ICD-10 [...] of months for a biannual visit. 01/26/2025 Degeneration of intervertebral disc of lumbar region with discogenic back pain (ICD-10 - M51.360) 03/23/2025 Degeneration of intervertebral disc of lumbar region with discogenic back pain (ICD-10 - M51.360) 09/21/2025 Pain in right ankle and joints of right foot (ICD-10 - M25.571) 11/17/2024 Unilateral primary osteoarthritis, right knee (ICD-10 - M17.11) 07/20/2025 half-way (current) use of opiate analgesic (ICD-10 - Z79.891) 05/25/2025 Degeneration of intervertebral disc of lumbar region with discogenic back pain (ICD-10 - M51.360) 07/20/2025 Pain in right ankle and joints of right foot (ICD-10 - M25.571) 11/17/2024 Unilateral primary osteoarthritis, left knee (ICD-10 - M17.12) 09/21/2025 Paresthesia of upper extremity (ICD-10 - R20.2) 05/25/2025 Unilateral primary osteoarthritis, right knee (ICD-10 - M17.11) 09/27/2024 Unilateral primary osteoarthritis, left knee (ICD-10 [...] of months for a biannual visit. 01/26/2025 Unilateral primary osteoarthritis, right knee (ICD-10 - M17.11) 03/23/2025 Unilateral primary osteoarthritis, right knee (ICD-10 - M17.11) 03/23/2025 Unilateral primary osteoarthritis, left knee (ICD-10 - M17.12) 01/26/2025 Unilateral primary osteoarthritis, left knee (ICD-10 - M17.12) 09/27/2024 Pain in right ankle and joints [...] of months for a biannual visit. 05/25/2025 Unilateral primary osteoarthritis, left knee (ICD-10 - M17.12) 09/21/2025 Unspecified abnormalities of gait and mobility (ICD-10 - R26.9) 11/17/2024 Pain in right ankle and joints of right foot (ICD-10 - M25.571) 07/20/2025 Paresthesia of upper extremity (ICD-10 - R20.2) 09/21/2025 Bilateral primary osteoarthritis of knee (ICD-10 - M17.0) 07/20/2025 Unspecified abnormalities of gait and mobility (ICD-10 - R26.9) 11/17/2024 Paresthesia of upper extremity (ICD-10 - R20.2) 05/25/2025 Pain in right ankle and joints of right foot (ICD-10 - M25.571) 01/26/2025 Pain in right ankle and joints [...] of months for a biannual visit. 09/27/2024 half-way (current) use of opiate analgesic (ICD-10 - [...] of months for a biannual visit. 01/26/2025 Paresthesia of upper extremity (ICD-10 - R20.2) 05/25/2025 Paresthesia of upper extremity (ICD-10 - R20.2) 07/20/2025 Bilateral primary osteoarthritis of knee (ICD-10 - M17.0) 03/23/2025 Paresthesia of upper extremity (ICD-10 - R20.2) 09/21/2025 half-way (current) use of opiate analgesic (ICD-10 - Z79.891) 11/17/2024 Unspecified abnormalities of gait and mobility (ICD-10 - R26.9) 11/17/2024 manager terminal (current) use of opiate analgesic (ICD-10 - Z79.891) 05/25/2025 Unspecified abnormalities of gait and mobility (ICD-10 - R26.9) 03/23/2025 Unspecified abnormalities of gait and mobility (ICD-10 - R26.9) 01/26/2025 Unspecified abnormalities of gait and mobility (ICD-10 - R26.9) 01/26/2025 manager terminal (current) use of opiate analgesic (ICD-10 - [...] to abide by our urine testing policy. 03/23/2025 half-way (current) use of opiate analgesic (ICD-10 - Z79.891) 05/25/2025 manager terminal (current) use of opiate analgesic (ICD-10 - Z79.891) 09/21/2025 Pattie Hunt am scribing for Dr. David German. I, [...] it is both accurate and complete. 01/26/2025 Austin Hunt am scribing for Dr. David German. Dr. David Mosley, personally performed the services described in this documentation, as scribed by Austin Palm, and it is both accurate and complete. 03/23/2025 Other I, BIN Sebastian, am scribing for Dr. David German. I, Dr. David German, personally performed the services described in this documentation, as scribed by BIN Sebastian, and it is both accurate and complete. 05/25/2025 Other Dimitri, Pattie Ac, am scribing for Dr. David German. I, Dr. David German, personally performed the services described in this documentation, as scribed by Pattie Ac, and it is both accurate and complete. 07/20/2025 Other Dimitri, Pattie Ac, am scribing for Dr. David German. I, Dr. David German, personally performed the services described in this documentation, as scribed by Pattie Ac, and it is both accurate and complete. Plan Of Treatment Next Appt Details Provider Name:David German, 11/23/2025 02:40:00 PM, [address] [place], [address], Insurance Providers Payer Name Payer Address Payer Phone Subscriber Number Group Number Insured Name Patient Relationship to Insured Coverage Start Date Coverage End Date [employer] [place] [employer] Replacement [address] [place] [address] [id number] Stephen Byrnes Self - patient is the insured [facility] Medicare Advantage PPO [address] [address] [place] [address] [id number] Stephen Byrnes Self - patient is the insured Medical (General) History Medical History History ICD Code Arthritis, Cancer, Depression, Thyroid disease, Headache, migraine Depression Cancer Arthritis Thyroid disease Swelling of multiple joints heart stents Surgical History Surgery Date(Month/Year) Arthroscopic Surgery cardiac angiogram 2022 [place] Foot-Triple Arthrodesis right foot surgery cardiac angiogram 02/2025
--- OUTSIDE RECORDS SUMMARY | 2025-09-24 02:30 | XMS_ITS | Data Portability ---
Author Organization [facility] Address [address] [facility] [address] [place] [address] Care Team Providers Care Project Development Leader Name Role Phone DEANNA LIRA Primary Care [...] MRI testing done. Not available 05/20/2025 13:56:30 08/08/2025 08/08/2025 Patient reports his foot got [...] Plus Urology/ will fax YF 2024 025 BRANDON [facility], [address], [facility] [address], [place], [address], 11:19:06 estradiol , serum 2024 [employer]limation [facility], [address] [place], [address], 06:58:21 testoster one, total, serum 2024 BRANDONProtection Plus [facility], [address] [facility], [place], [address], 06:58:21 hemoglobi n A1C/hemog lobin total, QN, blood 2024 [facility]ly [facility], [address] [facility], [facility], [place], [address], 10:20:32 CMP, serum or plasma 2024 [facility], [address] [facility], [facility], [place], [address], 10:43:45 thyrotrop in, QN, serum or plasma 2024 [facility], [address], [facility] [address], [place], [address], 10:54:54 Referral orthopedi c surgeon referral 2024 [email or web address] 2 [facility] [place] DO, [address] [place], [address], 11:29:17 Procedures None recorded. Surgeries None recorded. Imaging MRI, shoulder, w/o contrast [address] [facility], [address] [place], [address], 12:56:14 MRI, knee, w/o contrast [address] [facility], [address], [place], [address], 13:09:26 Medication Orders None recorded. Patient TargetsNo targets recorded. Patient Instructions Encounter Date Encounter Id Patient Instructions Last Modified By Organization Details Last Modified Time 05/20/2025 [id number] Call or return for questions or concerns. Not available 05/20/2025 13:52:40 08/08/2025 [id number] Call or return for questions or concerns. Not available 08/08/2025 15:09:24 Reason for Referral Orthopedic Surgeon Referral for Pain of right knee joint Referring Physician: Deanna Lira, Family Medicine, Encounter Date: 08/08/2025 Results Created Date Observation Date Name Description Value Unit Range Abnormal Flag Note LastModifiedBy Organization Detail LastModifiedTime 03/21/2003/21/2025 CBC WBC 7.6 x10 4.5-10 .5 Not Available [facility] [address] [facility] [address], [place], [address], 03/21/2025 10:37:58 03/21/2003/21/2025 CBC RBC 4.89 x10 4.30-5 .90 Not Available [facility] [address], [place], [address], 03/21/2025 10:37:58 03/21/2003/21/2025 CBC HGB 15.0 g/dL 13.5-1 8.0 Not Available [facility] [address], [place], [address], 03/21/2025 10:37:58 03/21/2003/21/2025 CBC HCT 45.2 % 35.0-6 0.0 Not Available [facility] [address], [place], [address], 03/21/2025 10:37:58 03/21/2003/2103/21/2025 CBC MCV 92.4 fL 80.0-9 9.9 Not Available [facility] [address] [facility] [address], [place], [address], 03/21/2025 10:37:58 03/21/20 25 03/21/2025 CBC MCH 30.6 pg 27.0-3 2.0 Not Available [facility] [address] [facility] [address], [place], [address], 03/21/2025 10:37:58 03/21/20 25 03/21/2025 CBC MCHC 33.1 g/dL 32.0-3 6.0 Not Available [facility] [address] [facility] [address], [place], [address], 03/21/2025 10:37:58 03/21/20 25 03/21/2025 CBC RDW 13.5 % 11.5-1 4.5 Not Available [facility] [address] [facility], [place], [address], 03/21/2025 10:37:58 03/21/20 25 03/21/2025 CBC plt 211.5 x10 150.0- 451.0 Not Available [facility] [address] [facility] [address], [place], [address], 03/21/2025 10:37:58 03/21/20 25 03/21/2025 CBC lymphocytes % 22.3 % 20.0-5 0.0 Not Available [facility] [address] [facility], [place], [address], 03/21/2025 10:37:58 03/21/20 25 03/21/2025 CBC granulcytes % 66.9 % 30.0-7 0.0 Not Available [facility] [address] [facility] [address], [place], [address], 03/21/2025 10:37:58 03/21/20 25 03/21/2025 CBC monocytes % 8.9 % 2.0-16 .0 Not Available [facility] [address] [facility] [address], [place], [address], 03/21/2025 10:37:58 03/21/20 25 03/21/2025 CBC granulcytes# 5.1 x10 Not Arelis ilable [facility] [address] [facility] [facility] [address], [place], [address], 03/21/2025 10:37:58 03/21/20 25 03/21/2025 CBC lymphocytes # 1.7 x10 Not Available [address] [address], [place], [address], 03/21/2025 10:37:58 03/21/20 25 03/21/2025 CBC monocytes # 0.7 x10 Not Avai lable [address] [place] [address] [address], [place], [address], 03/21/2025 10:37:58 03/21/20 25 03/22/2025 TESTO STERO NE, TOTAL , MALES (ADUL T), IA testosterone , total, males (adult), ia 298 NG/dL 250-82 7 normal Not Available [employer] [facility] [address] [place], [address], 03/22/2025 09:03:13 03/21/2003/22/2025 ESTRA DIOL estradiol 27 [...] is recom elo d (orde r code 20601 ). Carlitos jefferson note: patie nts being [...] s. [facility] ostic s order code 76560 -Estr adiol , Ultra sensi tive LC/MS /MS demon strat es negli gible cross react ivity with fulve stran t. Not Available [employer] [address] [address] [place], [address], 03/22/2025 09:03:15 03/21/2003/22/2025 PSA, TOTAL PSA, total [...] This test was perfo rmed using the Sieme ns chemi lumin escen t metho d. Value s obtai xin from diffe rent assay metho ds canno t be used inter santiago eably . PSA level s, regar dless of value , shoul d not be inter prete d as absol pauma evide nce of the prese nce or absen ce of disea se. Not Available [employer] [facility] [address] [place], [address], 03/22/2025 09:03:16 03/24/2003/24/2025 HBA1C hemaglobin A1C 5.6 4.2-6. 5 normal Not Available [facility] [address] [facility], [place], [address], 03/24/2025 10:20:32 03/24/20 25 03/24/2025 CMP (MALE ) glucose 101.0 mg/dL 60.0-9 9.0 high Not Available [facility] [address] [facility], [place], [address], 03/24/2025 10:43:45 03/24/20 25 03/24/2025 CMP (MALE ) BUN (blood urea nitrogen) 18.0 mg/dL 10.0-2 6.0 Not Available [facility] [address] [facility], [place], [address], 03/24/2025 10:43:45 03/24/20 25 03/24/2025 CMP (MALE ) creatinine (serum) 0.8 mg/dL 0.4-1. 5 Not Available [facility] [address] [facility], [place], [address], 03/24/2025 10:43:45 03/24/20 25 03/24/2025 CMP (MALE ) BUN/creatini ne ratio 22.50 ratio Not Available [facility] [address] [facility] [address], [place], [address], 03/24/2025 10:43:45 03/24/20 25 03/24/2025 CMP (MALE ) eGFR calculated 107.9 Not Available [facility] [address] [facility], [place], [address], 03/24/2025 10:43:45 03/24/20 25 03/24/2025 CMP (MALE ) total protein 7.5 g/dL 6.0-8. 5 Not Available [facility] [address] [facility], [place], [address], 03/24/2025 10:43:45 03/24/20 25 03/24/2025 CMP (MALE ) total bilirubin 0.7 mg/dL 0.2-1. 3 Not Available [facility] [address] [facility] [address], [place], [address], 03/24/2025 10:43:45 03/24/20 25 03/24/2025 CMP (MALE ) albumin 4.4 g/dL 3.5-5. 5 Not Available [facility] [address] [facility] [address], [place], [address], 03/24/2025 10:43:45 03/24/20 25 03/24/2025 CMP (MALE ) globulin 3.1 calc Not Available [facility] [address] [address], [place], [address], 03/24/2025 10:43:45 03/24/20 25 03/24/2025 CMP (MALE ) AST (SGOT) 45.0 U/L 0.0-46 .0 Not Available [facility] [address] [facility], [place], [address], 03/24/2025 10:43:45 03/24/20 25 03/24/2025 CMP (MALE ) altv (SGPT) 45.0 U/L 13.0-6 9.0 normal Not Available [facility] [address] [facility], [place], [address], 03/24/2025 10:43:45 03/24/20 25 03/24/2025 CMP (MALE ) A/G ratio 1.4 ratio Not Available [facility] [address] [facility], [place], [address], 03/24/2025 10:43:45 03/24/20 25 03/24/2025 CMP (MALE ) ALP phos 59.0 U/L 30.0-1 40.0 normal Not Available [facility] [address] [facility] [address], [place], [address], 03/24/2025 10:43:45 03/24/20 25 03/24/2025 CMP (MALE ) calcium 9.3 mg/dL 8.4-10 .5 Not Available [facility] [address] [facility] [address], [place], [address], 03/24/2025 10:43:45 03/24/20 25 03/24/2025 CMP (MALE ) sodium 138.0 mmol/ L 136.0- 145.0 Not Available [facility] [address] [facility] [address], [place], [address], 03/24/2025 10:43:45 03/24/20 25 03/24/2025 CMP (MALE ) potassium 4.5 mmol/ L 3.5-5. 1 Not Available [facility] [address] [facility] [address], [place], [address], 03/24/2025 10:43:45 03/24/20 25 03/24/2025 CMP (MALE ) chloride 104.0 mmol/ L 98.0-1 10.0 normal Not Available [facility] [address] [facility] [address], [place], [address], 03/24/2025 10:43:45 03/24/20 25 03/24/2025 CMP (MALE ) C02 28.0 mmol/ L 22.0-3 1.0 Not Available [facility] [address] [facility] [address], [place], [address], 03/24/2025 10:43:45 03/24/20 25 03/24/2025 CMP (MALE ) anion gap 6.0 calc Not Available [facility] [address] [address], [place], [address], 03/24/2025 10:43:45 03/24/20 25 03/24/2025 CMP (MALE ) osmolality 287.1 calc Not Available [facility] [address] [facility], [place], [address], 03/24/2025 10:43:45 03/24/20 25 03/24/2025 TSH TSH 2.97 uIU/m L 0.49-3 .82 Not Available [facility] [address] [facility], [place], [address], 03/24/2025 10:54:54 04/01/20 25 04/02/2025 CORTI ALEXY, A.M. cortisol, A.M. 15.3 mcg/d L normal Refer ence Range 8 a.m. (7-9 a.m.) Speci men: 4.0-2 2.0 Not Available [employer] [facility] [address] [place], [address], 04/02/2025 07:23:01 07/27/2007/27/2025 CBC WBC 7.5 x10 4.5-10 .5 Not Available [facility] [address] [facility], [place], [address], 07/27/2025 11:19:06 07/27/2007/27/2025 CBC RBC 4.96 x10 4.30-5 .90 Not Available [facility] [address] [facility], [place], [address], 07/27/2025 11:19:06 07/27/2007/27/2025 CBC HGB 15.4 g/dL 13.5-1 8.0 Not Available [facility] [address] [facility], [place], [address], 07/27/2025 11:19:06 07/27/2007/27/2025 CBC HCT 46.5 % 35.0-6 0.0 Not Available [facility] [address] [facility], [place], [address], 07/27/2025 11:19:06 07/27/2007/27/2025 CBC MCV 93.8 fL 80.0-9 9.9 Not Available [facility] [address] [facility], [place], [address], 07/27/2025 11:19:06 07/27/2007/27/2025 CBC MCH 31.1 pg 27.0-3 2.0 Not Available [facility] [address] [facility], [place], [address], 07/27/2025 11:19:06 07/27/2007/27/2025 CBC MCHC 33.2 g/dL 32.0-3 6.0 Not Available [facility] [address] [facility], [place], [address], 07/27/2025 11:19:06 07/27/2007/27/2025 CBC RDW 13.3 % 11.5-1 4.5 Not Available [facility] [address] [facility], [place], [address], 07/27/2025 11:19:06 07/27/2007/27/2025 CBC plt 246.4 x10 150.0- 451.0 Not Available [facility] [address] [facility], [place], [address], 07/27/2025 11:19:06 07/27/2007/27/2025 CBC lymphocytes % 22.2 % 20.0-5 0.0 Not Available [facility] [address] [facility], [place], [address], 07/27/2025 11:19:06 07/27/2007/27/2025 CBC granulcytes % 67.6 % 30.0-7 0.0 Not Available [address] [address], [place], [address], 07/27/2025 11:19:06 07/27/2007/27/2025 CBC monocytes % 8.9 % 2.0-16 .0 Not Available [address] [address], [place], [address], 07/27/2025 11:19:06 07/27/2007/27/2025 CBC granulcytes# 5.1 x10 Not Arelis ilable [address] [address], [place], [address], 07/27/2025 11:19:06 07/27/2007/27/2025 CBC lymphocytes # 1.7 x10 Not Available [address] [address], [place], [address], 07/27/2025 11:19:06 07/27/2007/27/2025 CBC monocytes # 0.7 x10 Not Avai lable [address] [address], [place], [address], 07/27/2025 11:19:06 07/27/2007/28/2025 TESTO STERO NE, TOTAL , MALES (ADUL T), IA testosterone , total, males (adult), ia 686 NG/dL 250-82 7 normal Not Available [employer] [facility] [address] [place], [address], 07/28/2025 06:58:21 07/27/2007/28/2025 ESTRA DIOL estradiol 36 [...] is recom elo d (orde r code 20593 ). Carlitos e note: patie nts being treat ed [...] s. [facility] ostic s order code 78200 -Estr adiol , Ultra sensi tive LC/MS /MS demon strat es negli gible cross react ivity with fulve stran t. Not Available [facility] [facility] [address] [place], [address], 07/28/2025 06:58:21 08/31/20 25 08/30/2025 XR, knee, 3 view No observ ation record ed. [facility] [address] [place], [address], 09/02/2025 13:38:44 08/31/20 25 08/30/2025 XR, hip, unila teral , 2 or 3 view No observ ation record ed. [facility] [address] [place], [address], 09/02/2025 13:41:13 08/31/20 25 08/30/2025 XR, shoul kwadwo, 2 or more view No observ ation record ed. [facility] [address] [place], [place], [facility], 09/02/2025 13:38:44 Result Notes None recorded. Problems Name Problem SNOMED Code Status Onset Date Resolution Date Notes Provider Name and Address Organization Details Recorded Time Pain of knee region [id number] Sam LIRA, [address], , [facility] 15:05:10 Atypical chest pain [id number] Sam LIRA, [address], , [facility] 15:05:10 Electrocar diogram abnormal [id number] Sam LIRA, [address], , [facility] 15:05:10 Arthritis of left glenohumer al joint [id number] 100 Sam LIRA, [address], , [facility] 15:05:10 Contusion of right ankle [id number] 9108 Sam LIRA, [address], , [facility] 15:05:10 Contusion of right knee [id number] 9104 Sam LIRA, [address], , [facility] 15:05:10 Contusion of right shoulder [id number] 9100 Sam LIRA, [address], [address] , [facility] 5 15:05:10 Benign essential hypertensi on 7974941 Active DEANNA LIRA, [address], , [facility] 5 15:05:10 Peripheral neuropathy due to type 2 diabetes mellitus [id number] Sam LIRA, [address], , [facility] 5 15:05:10 Backache [id number] Sam LIRA, [address] , [facility] 5 15:05:10 Osteoarthr itis of joint of right ankle [id number] 9101 Sam LIRA, [address] , [facility] 5 15:05:10 Stefan hematuria [id number] Sam LIRA, [address], , [facility] 5 15:05:10 Acquired valgus heel [id number] Sam LIRA, [address], , [facility] 5 15:05:10 Lethargy [id number] Sam LIRA, [address] , [facility] 5 15:05:10 Pneumonia [id number] Sam LIRA, [address] , [facility] 5 15:05:10 Osteoarthr itis of hip [id number] Sam LIRA, [address], , [facility] 5 15:05:10 Ankle pain [id number] Sam LIRA, [address], , [facility] 5 15:05:10 Infected insect bite [id number] Sam LIRA, [address] , [facility] 5 15:05:10 Dyspnea [id number] Sam LIRA, [address] , [facility] 5 15:05:10 Cutaneous peripheral T-cell lymphoma [id number] Sam LIRA, [address] , [facility] 5 15:05:10 Patient encounter status [id number] Sam LIRA, [address] , [facility] 5 15:05:11 Drug therapy finding [id number] Sam LIRA, [address] , [facility] 5 15:05:11 Impingemen t syndrome of left shoulder region 4548070193754 04 Sam LIRA, [address] [place] [address] , [facility] 5 15:05:11 Tobacco smoking behavior - finding [id number] Sam LIRA, [address], , [facility] 5 15:05:11 Cervical spondylosi s [id number] Sam LIRA, [address], , [facility] 5 15:05:11 Peripheral vascular disease [id number] Sam LIRA, [address], , [facility] 5 15:05:11 Body mass index 40+ - severely obese [id number] Sam LIRA, [address], , [facility] 5 15:05:11 Bunion [id number] Sam LIRA, [address], , [facility] 5 15:05:11 Diastolic heart failure [id number] Sam LIRA [address], , [facility] 5 15:05:11 Cardiovasc ular stress test abnormal [id number] Sam LIRA, [address], , [facility] 5 15:05:11 Coronary atheroscle rosis [id number] Sam LIRA, [place] [address] , [facility] 5 15:05:11 Pain of hip region 20078526 Active DEANNA LIRA, [address], [address] , [facility] 5 15:05:11 Degenerati on of cervical interverte bral disc 11891464 Active DEANNA LIRA, [address], [address] , [facility] 5 15:05:11 Inflammato ry dermatosis 009357624 Active DEANNA LIRA, [address], [address] , [facility] 5 15:05:11 Obstructiv e sleep apnea syndrome 16800756 Active DEANNA LIRA, [address], [address] , [facility] 5 15:05:11 Palpitatio ns 27333951 Active DEANNA LIRA, [address], [address] , [facility] 5 15:05:11 COVID-19 668848377 Active DEANNA LIRA, [address], [address] , [facility] 5 15:05:11 Dystrophia unguium 53524977 Active DEANNA LIRA, [address], [address] , [facility] 5 15:05:11 Pain of left hip joint 7261575618001 00 Active 2021 JEREMY diez, [facility] 4 00:46:29 Osteoarthr itis of multiple joints 172647353 Active 2021 JEREMY diez, [facility] 4 00:46:14 Primary cutaneous T-cell lymphoma 290074752 Active 2022 Not Available [facility] 3 14:55:33 Obstructiv e sleep apnea of adult 5606550438399 Active 2022 JEREMY diez, [facility] 4 00:46:00 Chronic pain 24904292 Active 2022 JEREMY diez [facility] 4 00:45:48 Chronic obstructiv e pulmonary disease 83637277 Active 2022 JEREMYCOURTNEY diez [facility] 4 00:45:34 Mixed hyperlipid emia 686376379 Active 2022 JEREMY TRACIE rg [facility] 4 00:45:51 Prediabete s 045791346 Active 2023 JEREMY TRACIE rg [facility] 4 00:46:39 Coronary arterioscl erosis 32692874 Active 2023 JEREMYCOURTNEY diez, [facility] 4 00:47:05 Morbid obesity 814823105 Active 2024 JENNIFER RGEGORY [address] [place], [address] , [facility] 5 22:21:06 Superficia l laceration 689405021 Active 2024 Ernst Rivas MD [address] [place], [address] , [facility], Jaret.L.COpal 5 14:44:32 Problem Notes None recorded. Procedures Surgical History Date Name Laterality Status Provider Name and Address Organization Details Recorded Time 5 plain X-ray of right knee region completed [facility], RamónL.COpal 09/02/2025 13:36:56 5 plain X-ray of shoulder completed [facility], LOpalL.COpal 09/02/2025 13:38:15 5 plain X-ray of hip completed [facility], BrownCOpal 09/02/2025 13:40:38 5 plain X-ray of right ankle completed [facility], Albert 07/28/2025 10:43:36 5 plain X-ray of right knee region completed [facility], L.L.COpal 07/28/2025 10:47:43 5 MRI of brain completed [facility], RamónLOpalCOpal 02/08/2025 00:14:40 5 jr skin tag removal completed DEANNA LIRA, [facility] [address] [place], [address], [facility], LOpalL.COpal 11/24/2024 15:41:47 4 plain X-ray of chest completed [facility], RamónL.COpal 09/22/2024 13:14:13 4 plain X-ray of chest completed [facility], RamónL.COpal 08/17/2024 17:47:[address] of head completed [facility], BrownCOpal 08/17/2024 17:48:09 4 continuous positive airway pressure titration completed JEREMY HODGES [facility], L.LOpalCOpal 02/11/2024 13:22:45 3 Colonoscopy completed AUDREY WILBER [facility], LOpalLOpalCOpal 02/16/2024 12:21:22 Knee Surgery completed JEREMY HODGES [facility], LOpalLOpalCOpal 11/18/2023 11:28:30 Imaging Results None recorded. Procedure Notes None recorded. Medical Equipment None Reported. Allergies Allergen ID Allergen Name Allergen Category Reaction Reaction Severity Criticality Documentation Date Start Date Code Code System Note Provider Name and Address Organization Details Recorded Time 14121 minocycli ne medicatio n Not available Not available Not available 08/13/20232024 6980 RxNorm DEANNANany LIRA, [address], [address], [facility] 15:05:22 10276 atorvasta tin medicatio n Not available Not available Not available 08/08/20252024 82866 RxNorm DEANNANany LIRA, [address], [address], [facility] 5 15:05:22 Medications Name Sig Start Date [...] W/Acetami nophen four times daily 05/20 completed [facility]; Recorded 10/03/20 21 12:50PM by [...] No t Available Vitals Date Recorded Body height Body mass index (BMI) Body weight Oxygen saturation Heart rate Body temperature Systolic And Diastolic Provider Name and Address Organization Details Last Updated DateTime 182.88 cm 46.1 kg/m2 166760. 41 g 96 % 98 /min 98.6 [degF] 120/80 mm[Hg] Chantale Espinosamaryann [facility] 14:38:57 Date Recorded Body height Body mass index (BMI) Body weight Oxygen saturation Heart rate Respiratory rate Systolic And Diastolic Provider Name and Address Organization Details Last Updated DateTime 182.88 cm 45.4 kg/m2 009442. 44 g 96 % 70 /min 20 /min 130/78 mm[Hg] JEREMY HODGES [facility] 13:18:07 Date Recorded Body mass index (BMI) Body weight Provider Name and Address Organization Details Last Updated DateTime 08/08/2025 45.3 kg/m2 478677.85 g DEANNA LIRA, [address], [address], [facility] 08/08/2025 15:11:11 Date Recorded Body height Body temperature Heart rate Oxygen saturation Systolic And Diastolic Provider Name and Address Organization Details Last Updated DateTime 182.88 cm 98.1 [degF] 63 /min 98 % 140/92 mm[Hg] TRACIE HDZ [facility] 14:51:54 Social History Question Answer Notes LastModified by Organizat ion Details LastModified Time Tobacco Smoking Status Former Smoker JEREMY HODGES [facility] 03/25/2023 18:07:59 What Is Your Level Of Caffeine Consumption? Moderate [email or web address] Information not available 11/18/2023 What Was The Date Of Your Most Recent Tobacco Screening? 04/07/2025 [email or web address] Information not available 04/07/2025 What Is Your Relationship Status? Single Information not available 11/18/2023 Do You Have Difficulty Walking Or Climbing Stairs? Yes Uses A Cane Information not available 11/18/2023 Sex: Unknown Functional Status Question Answer Note LastModified by Organizat ion Details LastModified Time How many times per week do you consume alcohol? 1-2 times per week [email or web address] Information not available 03/25/2023 Do you use any illicit or recreational drugs? No Information not available 11/18/2023 What is your level of alcohol consumption? Moderate [email or web address] Information not available 03/25/2023 Are you able to walk independently without assistance or assistive devices? YESASSIST [email or web address] Information not available 12/28/2024 Are you able to care for yourself independently? Yes [email or web address] Information not available 11/18/2023 Mental Status None recorded. Family History Relationship Description Onset Age of this Age Resolved Age Notes LastModified by Organization Details LastModified Time Mother Essential hypertension [email or web address] Not available 16:19:17 Mother Hyperlipidem ia [email or web address] Not available 11/18 11:25:59 Maternal Grandfather Malignant neoplasm of colon [email or web address] Not available 07/31 16:19:44 Father Hyperlipidem ia [email or web address] Not available 11/18 11:25:59 Medical History Condition [...] 07/02/2023 14:55:34 Tdap 5 completed AC Su [facility] 04/08/2025 09:53:11 Past Encounters Encounter ID Performer Location Encounter Start Date Encounter Closed Date Diagnosis/Indication Diagnosis SNOMED-CT Code Diagnosis ICD10 Code Diagnosis IMO Codes Diagnosis Note [id number] JENNIFER GREGORY [facility] ([facility]) [address] [place] [address] [id number] 5 03/25/2023 17:15:37 04/07/2023 09:57:33 Obstructive sleep apnea of adult 2087062393 103 G47.33 Acute bronchitis 3442613 2 J20.9 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 Morbid obesity 831210084 E66.01 Z68.42 Discussed diet and exercise. Mixed hyperlipidemia 267 805875 E78.2 Serum thyr oid stimulating hormone level outside reference range 371195312 R89.1 Chronic pain 88279632 G8 9.29 F11.90 Follows with pain management . Depressive disorder 3548 9007 F32.A Waxes and wanes. Chronic ob structive pulmonary disease 45232786 J44.9 Doing well, not currently on medication . Worsening following COVID. [id number] JENNIFER GREGORY [facility] ([facility]) [address] [place] [address] [id number] 5 05/20/2023 14:05:56 05/20/2023 16:03:01 Adult health examination 786524504 Z00.00 Screening for malignant neoplasm of colon 348428373 Z12.11 Colonoscop y consult to be scheduled with Dr. Seth, last 10/2022. Obstructiv e sleep apnea of adult 6751780117 103 G47.33 Wears CPAP nightly. Chronic ob structive pulmonary disease 04763039 J44.9 Recent exposure to am[place] gas. Osteoarthr itis of multiple joints 994152124 M15.3 Chronic pain, follows with Dr. German. Obesity 194750746 E66.9 Wegovy has been sent in. He is in physical therapy/aq uatics therapy. 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 Intermitte nt palpitations 220800010 R00.2 [id number] JENNIFER GREGORY [facility] ([facility]) [address] [place] [address] [id number] 5 07/31/2023 14:50:27 07/31/2023 17:13:40 Chronic bronchitis 52041628 J42 COVID infection in May. [id number] Sundeep Seth MD [facility] ([facility]) [address] [place] [address] [id number] 5 08/13/2023 11:17:17 08/13/2023 14:47:29 Screening for malignant neoplasm of colon 291014388 Z12.11 Pt is scheduled for a colonoscop y on 09/12/23, pt has been given prep instructio ns and advised [facility] will contact him of arrival time prior to procedure [id number] DEANNA LIRA [employer]RIAL INSULATOR [facility] ([facility]) [address] [place] [address] [id number] 5 09/10/2023 12:58:37 09/25/2023 08:50:28 Spinal stenosis 62839884 M48.00 Coronary arteriosclerosis 61003971 I25.10 Recent stent placement, symptoms improved. [id number] JENNIFER GREGORY [facility] ([facility]) [address] [place] [address] [id number] 5 09/23/2023 14:59:04 09/23/2023 16:38:12 Coronary atherosclerosis 417170362 I25.10 [id number] DEANNA LIRA INDUSTRIAL INSULATOR [facility] ([facility]) [address] [place] [address] [phone] 5 11/18/2023 14:34:42 11/18/2023 19:26:36 Tight chest 53434962 R07.89 Awaiting results from ECHO tomorrow, lab work done at cardiologi yesterday. Edema of l ower extremity 822818560 R60.0 He missed a few doses of Lasix because he was out of meds. 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 Chronic pain 41161907 G8 9.29 F11.90 Follows with pain management . Obstructiv e sleep apnea of adult 1940328346 103 G47.33 Wears CPAP nightly. Body mass index 40+ - severely obese 539664142 Z68.42 Diet and exercise. Mixed hyperlipidemia 267 866992 E78.2 Does not tolerate statins. [id number] DEANNA LIRA INDUSTRIAL INSULATOR [facility] ([facility]) [address] [place] [address] [id number] 5 12/11/2023 14:45:24 12/11/2023 15:47:14 Hypertensive heart disease with congestive heart failure 8245616 I11.0 Most recent appt with cardiology was a week ago. [id number] DEANNA LIRA [facility] ([facility]) [address] [place] [address] [id number] 5 01/16/2024 12:03:10 01/16/2024 13:22:35 Adult health examination 817739476 Z00.00 Prediabetes 224229040 R7 3.03 Obstructiv e sleep apnea of adult 0191449069 103 G47.33 Wears CPAP nightly. Hyperlipidemia 62203354 E78.5 Currently on Praluent. Edema of l ower extremity 942677837 R60.0 Advised him to wear compressio n stockings to help with leg swelling. Fatigue 61800229 R53.83 Screening for malignant neoplasm of colon 795076468 Z12.11 Colonoscop y consult to be scheduled with Dr. Seth, last 10/2022. [id number] Sundeep Seth MD [facility] ([facility]) [address] [place] [address] [id number] 5 02/16/2024 11:59:55 02/16/2024 13:56:30 Screening for malignant neoplasm of colon 982125651 Z12.11 [id number] ARNOLDO FOWLER [facility] ([facility]) [address] [place] [address] [id number] 5 03/03/2024 14:06:49 03/03/2024 14:33:54 Community acquired pneumonia 721493764 J18.9 Discussed use of prescripti ons.Pt given rxn for nebulizer machine. He has albuterol neb soln he can use.F/u with PCP next week or sooner if symptoms worsen. [id number] JENNIFER GREGORY [facility] ([facility]) [address] [place] [address] [id number] 5 03/29/2024 10:57:14 03/30/2024 09:47:43 Male hypogonadism 96300846 E29.1 [id number] DEANNA LIRA [facility] ([facility]) [address] [place] [address] [id number] 5 04/20/2024 14:00:43 04/20/2024 15:00:21 Prediabetes 989002541 R73.03 Primary cu taneous T-cell lymphoma 294890535 C84.18 Follows with Kecia. Osteoarthr itis of multiple joints 107148711 M15.3 Chronic pain, follows with Dr. German. [id number] DEANNA LIRA [facility] ([facility]) [address] [place] [address] [id number] 5 05/26/2024 09:55:36 05/27/2024 12:19:01 Male hypogonadism 77135373 E29.1 [id number] DEANNA LIRA [facility] ([facility]) [address] [place] [address] [phone] 5 08/23/2024 10:15:08 08/24/2024 11:03:41 Male hypogonadism 62773459 E29.1 [id number] Sundeep Seth MD [facility] ([facility]) [address] [place] [address] [id number] 5 09/28/2024 15:17:38 09/28/2024 16:22:14 Screening for malignant neoplasm of colon 289052935 Z12.11 [id number] DEANNA LIRA [facility] ([facility]) [address] [place] [address] [id number] 5 09/22/2024 13:00:15 09/22/2024 14:08:34 Obstructive sleep apnea of adult 1241180544 103 G47.33 Wears CPAP nightly. [id number] DEANNA LIRA [facility] ([facility]) [address] [place] [address] [id number] 5 11/23/2024 10:04:11 11/24/2024 12:14:42 Male hypogonadism 09590644 E29.1 [id number] DEANNA LIRA [facility] ([facility]) [address] [place] [address] [id number] 5 11/24/2024 15:03:25 11/24/2024 16:00:36 Skin tag 397097928 L91.8 Cryocauter y to 1 skin tag. [id number] DEANNA LIRA [facility] ([facility]) [address] [place] [address] [id number] 5 11/30/2024 11:49:35 11/30/2024 13:15:24 Acute sinusitis 14124787 J01.90 [id number] JENNIFER GREGORY [facility] ([facility]) [address] [place] [address] 12/28/2024 14:18:33 12/28/2024 15:45:05 Adult health examination 315987983 Z00.00 Obstructiv e sleep apnea syndrome 76635287 G47.33 He does not tolerate CPAP. He was diagnosed in 2001. He feels worse following the usage of the CPAP because it blows too much the wrong way. May be improved if he would shave his lux but he doesn't want to do that at this time. Floaters i n visual field 879091425 H43.399 Increasing . Recently got new glasses. Aphasia 06010468 R47.01 He feels like his thought process and focus is way off and at times he has trouble getting his thoughts out. Migraine. CT was good in August. Primary cu taneous T-cell lymphoma 755482730 C84.18 C84.A0 Follows with Kecia. Morbid obesity 892788440 E66.01 Z68.42 Discussed diet and exercise. Previously was on Ozempic with good results. Prediabete s, insurance will no longer cover. Chronic ob structive pulmonary disease 22146670 J44.9 Recent URI. Mixed hyperlipidemia 267 094855 E78.2 G72.0 Does not tolerate statins. Repatha every 2 weeks. Chronic pain 47433303 G8 9.29 F11.90 Follows with pain management . Chronic low back pain 27 9778668 M54.50 Follows with pain management . Chronic pr imary musculoskeletal limb pain 3638338525 7102 M79.609 R26.9 Z91.81 Z74.1 Right leg, surgery in 2009. Uses cane for ambulation . Hypertensi ve heart disease with congestive heart failure 1355553 I11.0 Most recent appt with cardiology was a week ago. [id number] JENNIFER GREGORY [facility] ([facility]) [address] [place] [address] [id number] 5 03/21/2025 10:06:03 03/22/2025 11:13:25 Male hypogonadism 06239173 E29.1 [id number] DEANNA LIRA [facility] ([facility]) [address] [place] [address] [id number] 5 03/24/2025 09:56:42 03/25/2025 09:49:56 Fatigue 64615438 R53.82 Prediabetes 070770642 R7 3.03 [id number] Ernst Rivas MD [facility] ([facility]) [address] [place] [address] [id number] 5 04/07/2025 14:24:39 04/07/2025 18:21:07 Superficial laceration 280195599 T14.8XXA [id number] Patient had superficia l laceration s did not require any interventi on. He had stopped for the most part. Recommend wound cleaning and bandaging. Will update tetanus today. [id number] DEANNA LIRA INDUSTRIAL INSULATOR [facility] ([facility]) [address] [place] [address] [id number] 5 05/20/2025 12:45:30 05/20/2025 14:18:10 Obstructive sleep apnea of adult 7114026059 103 G47.33 Wears CPAP nightly. Using Zepbound. Prediabetes 440720489 R7 3.03 [id number] Last A1C 5.6. Screening for malignant neoplasm of colon 799063003 Z12.11 [id number] Colonoscop ies are done to screen for [...] schedule another colonoscop y at this time. [id number] JENNIFER GREGORY [facility] ([facility]) [address] [place] [address] 07/27/2025 10:22:02 07/28/2025 11:03:07 Male hypogonadism 99170638 E29.1 41070411 [id number] JENNIFER GREGORY [facility] ([facility]) [address] [place] [address] 08/08/2025 14:33:51 08/08/2025 15:22:15 Pain of left shoulder joint 0453175534 7989400 M25.512 829981 Pain of ri ght knee joint 2722147352 35085 M25.561 765860 Chronic ankle pain 99413 31459 9109 M25.571 G89.29 39695051 Follows with pain management . Health Concerns Section Related Observation LastModified by Organization Detai ls LastModified Time None Recorded Concern Status LastModified by Organization Details LastModified Time None Recorded Advance Directives Directive None Recorded Payers Insurance Date Sequence Insurance Name Policy Number Policy Head Covered Member ID Head Member ID Guarantor Name 07/27/2025 1 [facility] (MEDICARE REPLACEMENT/A DVANTAGE - PPO) [id number] Stephen Byrnes [id number] Stephen Byrnes 07/27/2025 1 [place] [id number] Stephen Byrnes [id number] Stephen Byrnes 08/30/2025 1 [place] - [place] [id number] Stephen Byrnes [id number] Stephen Byrnes Notes Date Note Type Note Provider Name and Address Organization Details Recorded Time 04/07/20 25 text/htm l walk inx1 hour ago- cut right calf with [employer] Ernst Rivas MD [address] [place] [address], [phone], [facility], [place] 04/07/2025 18:16:42 05/20/20 25 text/htm l Obstructive Sleep ApneaReported by PatientHPIFor severity, patient reportssevere. For timing, patient reportschronic. For duration, patient reports___years. For aggravating factors, patient reportsweight gainandfatigue. For prior tests and treatments, patient reportspolysomnography,weight loss program,regular sleep schedule, andcpap.ROS as noted in the HPI DEANNA LIRA, JENNIFER [address] [place], [address], [facility] 05/20/2025 13:59:35 08/08/20 25 text/htm l Joint PainReported by PatientHPIFor quality, patient reportssharp,tingling, anddull. For severity, patient reportsworsening. For associated symptoms, patient reportstinglingandnumbness of the legs/feet. For location, patient reportsleft shoulder,right hip,right knee, andright ankle. For timing, patient reportsconstant. DEANNA LIRA, JENNIFER [address] [place], [address], [facility] 08/08/2025 15:16:32
[2025-09-24 02:39] VITALS: BP 140/86; O2SAT 96
[2025-09-24 03:09] VITALS: BP 132/74; O2SAT 92
--- NOTE | 2025-09-24 03:09 | W.ED.DENTAL ---
HPI - Dental/Oral General: Chief complaint: Dental/Oral Stated complaint: Mouth and face is hurting Time Seen by Provider: 09/24/25 02:46 History of Present Illness: Patient is a 55-year-old male who presents to the emergency department with progressive facial swelling and severe pain. Symptoms began on Friday with what felt like a toothache in both upper and lower jaw. By Friday, swelling had started to develop. The patient was unable to see a dentist until , at which point the dentist (Dr. Boothe) noted significant swelling and was unable to perform any dental procedures. The dentist prescribed clindamycin, of which the patient has taken 6 doses so far. Despite antibiotic therapy, the patient reports worsening symptoms with swelling now extending up his cheek toward his eye. He reports intermittent fevers with a maximum temperature of 103.7?F and a minimum of 99.9?F, noting that fevers tend to spike at night. The patient has a pus pocket on the roof of his mouth, swollen gum line, and a loose tooth (described as a 'batwing bridge'). He also reports pain in his nose on that side. The patient has been experiencing significant pain that has not responded to high doses of hydrocodone or ibuprofen (reports taking approximately 2000mg of ibuprofen today). He has been unable to sleep adequately, getting only about 10 hours of sleep since Friday. He uses a CPAP with a full face mask, which is causing additional discomfort due to the facial swelling. Related Data Home Medications ?Medication ?Instructions ?Recorded ?Confirmed meloxicam 15 mg tablet 15 mg PO DAILY 01/17/25 09/13/25 testosterone undecanoate 237 mg 396 mg PO BID 04/18/25 09/13/25 capsule (Jatenzo) tirzepatide (weight loss) 2.5 10 mg SUBCUT .weekly 04/18/25 09/13/25 mg/0.5 mL subcutaneous pen injector (Zepbound) Previous Rx's ?Medication ?Instructions ?Recorded hydrocodone 10 mg-acetaminophen 1 tab PO QID PRN pain 30 days #120 07/31/21 325 mg tablet tabs aspirin 81 mg tablet,delayed 81 mg PO DAILY #30 tabs 09/04/23 release AFO to right #1 ea 12/16/23 Custom molded Accommodative #1 ea 06/02/24 orthotics Orthopedic Boots #1 ea 06/02/24 lisinopril 10 mg tablet 10 mg PO DAILY #90 tabs 10/22/24 furosemide 40 mg tablet See Rx Instructions .Route 04/22/25 .COMPLEX #100 tabs potassium chloride 8 mEq See Rx Instructions .Route 04/22/25 tablet,extended release .COMPLEX #100 tabs evolocumab 140 mg/mL subcutaneous See Rx Instructions .Route 06/20/25 pen injector (Repatha SureJuancarlosick) .COMPLEX #1 mL clopidogrel 75 mg tablet See Rx Instructions .Route 06/21/25 .COMPLEX #30 tabs metoprolol tartrate 25 mg tablet See Rx Instructions .Route 06/21/25 .COMPLEX #60 tabs methocarbamol 750 mg tablet 750 mg PO Q8H PRN muscle spasm #30 07/28/25 tabs methylprednisolone 4 mg tablets in See Rx Instructions PO .COMPLEX 09/24/25 a dose pack (Medrol (Jeyson)) #21 ea metronidazole 500 mg tablet 500 mg PO Q8H 7 days #21 tabs 09/24/25 Allergies Allergy/AdvReac Type Severity Reaction Status Date / Time atorvastatin AdvReac Severe Myalgia Verified 09/13/25 09:30 minocycline AdvReac Unknown FLUSHED - Verified 09/13/25 09:30 DRAINED FEELING PFSH ED PFSH: Medical History Diastolic heart failure Benign essential hypertension with target blood pressure below 140/90 Atherosclerosis of [place] coronary artery without angina pectoris Gross hematuria Encounter for long-term opiate analgesic use Opioid contract exists Chronic left hip pain Chronic pain of left knee Ankle pain, right Back pain with left-sided radiculopathy Surgical History H/O arthroscopic knee surgery History of foot surgery Family History Grandfather Cancer Social History Smoking and tobacco/nicotine status: former use of tobacco/nicotine Second hand smoke exposure: No Alcohol intake: current Alcohol intake frequency: few times a month Substance/Drug Use: never Physical Exam Const: COMMON NORMALS: no acute distress GENERAL APPEARANCE: not ill appearing HENMT: TEETH & GINGIVA: Yes abnormal tooth and associated gingiva and Yes bridge OTHER: Right upper lateral incisor swelling at base. Palatial swelling behind the tooth. No drainage. Mild soft tissue swelling of the buccal surface of the upper lip. Some maxillary facial tenderness on the right. Some tenderness to the base of the nose on the right, not the left. No significant swelling in the nare. No trismus. No cellulitic skin change. Eye: COMMON NORMALS: Equal, round and reactive pupils present, EOMs intact bilaterally and conjunctivae normal CONJUNCTIVA: Yes conjunctivae normal PUPIL: Yes Equal, round and reactive pupils present Chest: CHEST: Yes Symmetrical chest wall rise Resp: COMMON NORMALS: normal respiratory effort Cardio: COMMON NORMALS: regular rate and regular rhythm RATE: regular rate RHYTHM: regular rhythm Course Vital Signs: Vital signs: Vital Signs Temperature 98.6 F 09/24/25 02:28 Pulse Rate 74 09/24/25 04:03 Respiratory Rate 16 09/24/25 02:28 Blood Pressure 121/74 09/24/25 04:03 Pulse Oximetry 96 09/24/25 04:03 Oxygen Delivery Me thod Room Air 09/24/25 03:09 MDM - Dental/Oral Medical Decision Making Dental abscess with palatial and buccal surface swelling. No drainage. No signs of airway compromise. No fever here. He has had 6 doses of clindamycin without improvement. Not usually advisable to drain hard palatial abscesses. Likely little benefit. He has a follow-up dentist appointment on Friday in 2 days. Will add metronidazole for increased anaerobic coverage steroids for facial swelling. Pain control here. Dental follow-up as scheduled. Stable for discharge. No radiology studies performed this visit Discharge Plan Discharge Patient Disposition: Home Clinical Impression: Dental abscess Condition: Stable Prescriptions: New metronidazole 500 mg tablet 500 mg PO Q8H 7 Days Qty: 21 0RF methylprednisolone [Medrol (Jeyson)] 4 mg tablets,dose pack See Rx Instructions .ROUTE .COMPLEX Qty: 21 0RF Rx Instructions: orally per package directions No Action hydrocodone-acetaminophen 10-325 mg tablet 1 tab PO QID PRN (Reason: pain) 30 Days Qty: 120 0RF Rx Instructions: Fill on or after 09/03/21 (DME) AFO to right See Rx Instructions .Route .MEDSUPPLY Qty: 1 0RF Rx Instructions: As directed meloxicam 15 mg tablet 15 mg PO DAILY (DME) Custom molded Accommodative orthotics See Rx Instructions .Route .MEDSUPPLY Qty: 1 0RF Rx Instructions: As directed by [facility] (DME) Orthopedic Boots See Rx Instructions .Route .MEDSUPPLY Qty: 1 0RF Rx Instructions: As directed Jatenzo 237 mg capsule 396 mg PO BID Rx Instructions: must administer with a meal/food Zepbound 2.5 mg/0.5 mL pen injector 10 mg SUBCUT .weekly lisinopril 10 mg tablet 10 mg PO DAILY Qty: 90 3RF furosemide 40 mg tablet See Rx Instructions .ROUTE .COMPLEX Qty: 100 3RF Dose Instruction: TAKE 1 TABLET BY MOUTH EVERY DAY AND TAKE AN EXTRA TABLET ONCE A WEEK Rx Instructions: TAKE 1 TABLET BY MOUTH EVERY DAY AND TAKE AN EXTRA TABLET ONCE A WEEK potassium chloride 8 mEq tablet extended release See Rx Instructions .ROUTE .COMPLEX Qty: 100 3RF Dose Instruction: TAKE 1 TABLET BY MOUTH EVERY DAY. TAKE AN EXTRA TABLET ONCE A WEEK Rx Instructions: TAKE 1 TABLET BY MOUTH EVERY DAY. TAKE AN EXTRA TABLET ONCE A WEEK Repatha SureClick 140 mg/mL pen injector See Rx Instructions .ROUTE .COMPLEX Qty: 1 12RF Dose Instruction: INJECT 140MG SUBCUTANEOUSLY EVERY TWO WEEKS Rx Instructions: INJECT 140MG SUBCUTANEOUSLY EVERY TWO WEEKS metoprolol tartrate 25 mg tablet See Rx Instructions .ROUTE .COMPLEX Qty: 60 5RF Dose Instruction: TAKE ONE TABLET BY MOUTH TWICE DAILY Rx Instructions: TAKE ONE TABLET BY MOUTH TWICE DAILY clopidogrel 75 mg tablet See Rx Instructions .ROUTE .COMPLEX Qty: 30 10RF Dose Instruction: TAKE 1 TABLET BY MOUTH EVERY DAY Rx Instructions: TAKE 1 TABLET BY MOUTH EVERY DAY aspirin 81 mg Tablet,Delayed Release (Dr/Ec) 81 mg PO DAILY Qty: 30 10RF methocarbamol 750 mg tablet 750 mg PO Q8H PRN (Reason: muscle spasm) Qty: 30 0RF Discharge Orders: Discharge ED (Routine); Ordered 09/24/25 Ordered By: Magdaleno Michel Referrals: Deanna Rodriguez FNP [Primary Care Provider, Unknown] Patient Instructions: Dental Abscess (ED), Opioid Safety, Pain Management, Patient Portal & Ign[facility] Instructions Activity Restrictions/Additional Instructions: Add a second antibiotic to your current antibiotic regimen. Steroids will help with pain and swelling. They take time to work. Ice may help with pain and swelling as well. Keep your dental appointment on Friday for follow-up. 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
[2025-09-24] MEDS: HYDROmorphone 0.5 MG/0.5 ML INJ 2 MG IM (03:55)
[2025-09-24] MEDS: ondansetron hcl ODT 4 mg Tab PO (04:02)
[2025-09-24 04:03] VITALS: BP 121/74; PULSE 74; O2SAT 96
--- NOTE | 2025-09-24 04:05 | PC.NURSE ---
Spoke with ERP prior to Dilaudid administration about DC ride arrangements. ERP said it was okay for patient to drive himself home 20 minutes after IM Dilaudid. Dilaudid given at [id number], will DC patient at 0415 if stable and okay to drive.
[2025-09-24 04:26] VITALS: BP 125/74; PULSE 73; O2SAT 94
== END 2025-09-24 04:29 | disposition home or self-care (01) ==
PROVIDERS: Emergency Provider Emergency Medicine; PCP Nurse Practitioner Family
DX: K04.7 Periapical abscess without sinus (principal); Z79.82 Long term (current) use of aspirin; Z79.02 Long term (current) use of antithrombotics/antiplatelets; Z87.891 Personal history of nicotine dependence; I25.10 Atherosclerotic heart disease of native coronary artery without angina pectoris; I11.0 Hypertensive heart disease with heart failure; I50.30 Unspecified diastolic (congestive) heart failure
CPT/HCPCS: 96372; 99284; J1171; J1885; J7512; J9999; Q0162

== ENCOUNTER → 2025-09-27 13:12 | Outpatient (BNVA) | payer MEDICARE, SELFPAY | PROVIDERS: PCP Nurse Practitioner Family; Visit Provider Podiatrist Foot & Ankle Surgery | DX: I73.9 Peripheral vascular disease, unspecified (principal); L60.3 Nail dystrophy; M19.271 Secondary osteoarthritis, right ankle and foot | CPT/HCPCS: 11721 ==